=== PATIENT | female | born 1970 | race Caucasian/White ===

== ENCOUNTER 2020-04-02 07:48 | Day surgery (SDC) | payer OTHER, SELFPAY ==
[2020-03-29 14:30] LABS: Hematocrit 34.8 % (37-47); Hemoglobin 9.6 g/dL (12.0-15.0); Mean Corp Hgb Conc 27.6 g/dL (32-36); Mean Corpuscular Hgb 19.8 pg (27.0-32.0); Mean Corpuscular Volume 71.9 fL (81-99); Mean Platelet Vol. 9.9 fl (6.2-12.0); POSITIVE MORPHOLOGY YES; Platelet Count 366 K/mm3 (150-450); RBC Distribution Width CV 20.8 % (11.6-14.6); RBC Distribution Width SD 51.4 fl (35.1-43.9); Red Blood Count 4.84 M/mm3 (4.2-5.4); White Blood Count 7.7 K/mm3 (4.4-11.0)
[2020-03-29 14:37] LABS: International Normalized Ratio 1.1; Prothrombin Time (Protime)PT. 14.1 SECONDS (11.7-14.9)
[2020-03-29 14:38] LABS: Partial Thromboplast Time 32.7 Seconds (24.1-36.2)
[2020-03-29 15:05] LABS: EST Glomerular Filtration Rate 80 mL/min (>60); Est Glom Filt Rate - Afr Amer 97 mL/min (>60)
[2020-03-29 15:13] LABS: Scan Indicated on CBC? Y/N YES- FLAGS NOTED
--- NOTE | 2020-04-01 19:29 | PCM.HP.BLA ---
History and Physical Date of Admission: 04/02/20 Surgical History and Physical Yuki Meyer, a 49 year old female 2 0 0 0 2, presents for RAVH/BS on April 02, 2020 at 10:00. -- Heavy Bleeding and Painful Cramping; Multiple Uterine Fibroids -- Yuki presents as referral from [facility] for heavy bleeding with painful cramping. 49 y.o. G 2 P 2 with history of Irregular bleeding for the last several years and worsening in the last year. Reports she has also had bleeding inbetween her periods in the last year, that she never had before. Pt sts she used the Provera 08/13/19 [id number] and then started her menses. Pt did not take the Provera in August as she had started her menses before starting provera. Pt took Provera again 10/12/19 x 10days. She does not like how the Provera makes her feel and does not want to take it anymore. Heavy bleeding with periods which began several years. Yuki claims it started suddenly and has been present worsened in last year. It occurs intermittantly.; It occurs with menses. It is located in the vagina.; It is located in the lower abdomen. Yuki characterizes the quality cramping.; Yuki characterizes the quality heavy. Severity is moderate and not improving; Associated signs and symptoms are minimal relief with cyclic Provera. Additional comments are: intermittent Provera withdrawal did not help with problem; pelvic u/s shows 10-12 cm uterus with multiple uterine fibroids; EMBx benign. MEDICATIONS HISTORY: Patient is also takin. atorvastatin 20 mg tablet, One pill by mouth once a day 2. Lumigan 0.01 % eye drops, As Directed 3. timolol 0.5 %-brimon 0.15 %-dorzol 2 %-latanopro 0.005 %(PF) eye drops, As Directed 4. Zoloft 50 mg tablet, One pill by mouth once a day ALLERGIES: No Known Allergies Illnesses - Hypercholesterolemia, Seasonal Allergies, Depression,Glaucoma Accidents - None Hospitalizations - Childbirth Review of Systems: GENERAL - Denies fever, or chills SKIN - Denies skin changes EYES - Denies visual changes EARS - Denies difficulty hearing NOSE - Denies nasal congestion or bleeding MOUTH - Denies sore throat or difficulty swallowing NECK - Denies pain or swelling RESPIRATORY - Denies shortness of breath or wheezing CARDIOVASCULAR - Denies palpitations or chest pain GASTROINTESTINAL - Denies nausea, vomiting, diarrhea, constipation GENITOURINARY - Denies dysuria, frequency of urination, incontinence of urine MUSCULOSKELETAL - Denies joint or muscle pain NEUROLOGICAL - Denies localized numbness or weakness PSYCHIATRIC - Denies depression or anxiety ENDOCRINE - Denies heat or cold intolerance, weight loss or gain HEMATO-IMMUNOLOGIC - Denies excessive bleeding with cuts SOCIAL HISTORY: Alcohol Use - drinks occasionally Smoking - Never Diet - no special diet Lifestyle - moderate stress lifestyle and Exercise - active work Seat Belt Use - always 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 wisdom teeth removal PHYSICAL EXAM BP- 148/82 Sitting, Right arm, regular cuff Weight- 204.74565 lbs Height- 64.25 inch BMI:34.82 CONSTITUTIONAL - NAD, well nourished, and well developed LUNGS - CTA x2 without wheezes, crackles or rales CARDIAC - Regular rate and rhythm without rubs, murmurs, or gallops ABDOMEN - Without hepatosplenomegaly, distention, masses, rebound, or guarding; normal bowel sounds; no hernias EXTREMITIES - No edema or calf tenderness NEUROLOGICAL - Cranial nerves II-XII grossly intact PSYCHIATRIC - A and O to time, place, person, mood and affect External Genital Vagina - non-tender without lesions Urethra/Urethral Meatus - non-tender Bladder - non-tender Vagina - vaginal vazquez are pink and moist without loss of rugae and no evidence of atropy Cervix - without cervical motion tenderness and has normal size and features without evident lesions and cervix very high in vagina which would make LAVH technically difficult but RAVH/BS feasible Uterus - multiparous size 6 cm & wt 75-125 g Adnexa - clear without masses or tenderness ASSESSMENT/PLAN: 1. Excessive And Frequent Menstruation With Irregular Cycle and Uterine Leiomyoma Unspec Likely due to bleeding from fibroids as no response to intermittent provera therapy for 3 months. EMBx was benign. Recent TSH reportedly OK. Multiple family members had hysterectomy for fibroids. Discussed options for treatment including EM ablation (suboptimal option) versus proceeding with RAVH/BS. Pt desires hysterectomy. Discussed RBAs and all questions answered.
[2020-04-02] VITALS (9 sets, daily range): BP systolic 100–120; BP diastolic 50–63; PULSE 46–72; RESP 14–18; TEMP 36.6–37.1; O2SAT 95–99; BMI 33.5
--- NOTE | 2020-04-02 | HYST_PTH ---
PATIENT: BENITO GUAMAN [place] [facility] [place][id number] AGE/SX: 49/F ROOM: RE04/02/[address]: Dr. Russell Santillan MD : 1970 BED: DIS: 04/03/2020 SPEC #: [id number] RECD: 04/02/20 13:49 STATUS: ALE MONSIVAISYahir #: [id number] FRANCES: 04/02/20 00:[address]: Russell Santillan DEPT: SURGICAL PATHOLOGY RECD BY: Roland Cutler ENTERED: 04/03/20 08:01 SP TYPE: HYSTERECT OTHR DR: JANIE Coreas Tissues: Uterus, NOS Procedures: Surgery Specimen Level V HEADER OPERATION: Robotic assisted vaginal hysterectomy, bilateral salpingectomy PRE-OP DIAGNOSIS: Excessive and frequent menstruation with irregular cycle and uterine leiomyoma TISSUE SUBMITTED: Uterus, cervix and bilateral fallopian tubes MICROSCOPIC DIAGNOSIS Uterus, cervix and bilateral fallopian tubes, vaginal hysterectomy and bilateral salpingectomy: Cervix - chronic inflammation. Endometrium - proliferative endometrium. Myometrium - diffuse adenomyosis. Bilateral fallopian tubes - no pathologic diagnosis. SUDEEP:jennifer 04/04/20 MICROSCOPIC DESCRIPTION Slides are reviewed. GROSS DESCRIPTION Received in fixative is one container labeled with the patient's name and designated uterus, cervix and bilateral fallopian tubes. The specimen consists of a hysterectomy specimen consisting of uterus with cervix and attached bilateral fallopian tubes. The uterus with cervix weighs 236 gm and measures 12 x 8 x 6 cm. The serosal surface is johnston, glistening. The ectocervical mucosa is unremarkable. The external os is oval in contour. The endocervical canal measures 3.5 cm in length. The endocervical mucosa is johnston, glistening and unremarkable. The triangular endometrial cavity measures 6 cm in length and up to 3.5 cm in width. The endometrium is johnston, congested and glistening without any mass lesion and measures up to 0.1 cm in thickness. Sections of the uterine wall reveal multiple small cysts filled with chocolate-brown material and trabeculated cut surfaces suspicious for adenomyosis. The uterine wall measures up to 3 cm in thickness. The right fallopian tube measures 9 cm in length and up to 1 cm in diameter. The fimbrial end is identified and reveals congested surfaces. Sections do not reveal any mass lesion. The left fallopian tube is similar appearance to right and measures 8 cm in length and up to 1 cm in diameter. Registered Nurses sections are submitted in eight cassettes as follows: 1 - anterior cervix, 2 - posterior cervix, 3 & 4 - anterior uterine wall, 5 & 6 - posterior uterine wall, 7 - right fallopian tube, 8??left fallopian tube. / SUDEEP:jennifer 04/03/20 TC:5 CPT: 99637
[2020-04-02 08:18] LABS: Internal QC Validated? YES +Cl - CLEAR BKGD; Pregnancy, Urine Negative Negative
[2020-04-02] MEDS: Lactated Ringers 1,000 ML 100 ML IV ×2 (08:47→13:00)
[2020-04-02] MEDS: Lubricating Jelly 60 GM Tube 30 GM TOPICAL (10:47)
[2020-04-02] MEDS: Ropivacaine 0.5% 30 ML Vial (11:02)
--- NOTE | 2020-04-02 12:54 | PCM.OPRPT ---
Report of Operation Date of Procedure: 04/02/20 Pre-Operative Diagnosis: Menorrhagia, Dysmenorrhea, Uterine Fibroids Post-Operative Diagnosis: Menorrhagia, Dysmenorrhea, Uterine Fibroids Surgery/Procedure Performed:: Robotic Assisted Vaginal Hysterectomy and Bilateral Salpingectomy Description of Surgical Findings:: 12 cm uterus with normal-appearing fallopian tubes and ovaries. Bulbous cervix high in vagina. Inflammatory exudate on serosa of uterus suggestive of endometriosis. 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 Ultrasound shows uterine fibroids present. Conservative measures have not been helpful. The patient has been counseled regarding the risks, benefits and alternatives of this procedure including the possibility of bleeding, infection, and injury to surrounding structures such as bowel bladder and all questions were answered. She understands that if BSO is needed that she will need to be on HRT for an indefinite period of time. Procedure: Pt taken to the operating room where, after induction of general anesthesia, the patient was prepped and draped in the usual sterile fashion and placed on a non-slip Huggy-u-vac device. Trendelenburg test was satisfactory. Bladder was drained of urine with a Mckay catheter which was left in place. Anterior cervix grasped and cervix was dilated to about 3-4 mm. Uterus sounded to 12 cms. 0-Vicryl suture was placed at the 3:00 and 9:00 position of the cervix. A large Advincula Living Advisor Uterine Manipulator was then placed in the uterus and attention was turned to the laparoscopic portion of the procedure. Ropivocaine 0.5% was injected approximately 2-3 cm superior to the umbilicus and an 8 mm robotic camera port was introduced directly with intraperitoneal placement confirmed with CO2 insufflation. 8 mm robotic side ports were introduced under direct visualization approximately 11 cm lateral and 2 cm inferior to the umbilical port. A 5 mm left upper quadrant port was introduced and airseal insufflation with CO2 was started. The above findings were noted. Robot was docked without difficulty and attention turned to the robotic portion of the procedure. Approximately 30 cc of Ropivicaine was used. Bilateral infundibulopelvic ligaments/mesosalpinx were ligated with 35 garner bipolar coagulation to the level of the round ligament. The posterior aspect of the cervix was identified and then opened for about 1 cm using 25 watt monopolar cautery identifying the uterine manipulating device which had been placed vaginally. Bladder flap was opened and divided to the level of the round ligaments using monopolar cautery. Progressive bites were then ligated on each side of the cervix with 35 garner bipolar cautery to the uterine arteries. The anterior vaginal mucosa was entered and cervix circumscribed with monopolar cautery. Uterus and attached tubes were removed through the vagina. Vaginal cuff was closed first with 0-Vicryl Tracie stitches placed at each angle followed by closure of the mid-cuff with 0-Monocryl V-lock suture in two layers. Pelvis was copiously irrigated with saline and the right and left ureters were noted to peristalse. Robot was undocked and trocars were removed with as much gas as possible. Incisions were closed with 4-0 Monocryl subcuticular sutures and incisions covered with steri-strips. The patient tolerated the procedure well and was taken to the recovery room in satisfactory condition. Sponge, instruments and needle counts were all correct. There were no apparent complications of the surgery. Cefotan 2 gms IV was given prior to the procedure. Grafts/Implants Used: None - Complications None - Admit VTE Documentation VTE Present on Admission: Yes VTE Mechan Device Prophylaxis: SCD's VTE Pharm Prophylaxis ordered?: Yes
--- NOTE | 2020-04-02 13:00 | DCINST_ITS ---
Discharge Diet: No Restrictions Discharge Activity: Return to Normal Activity, May Not Drive - while taking narcotic pain medications., May Shower, May Take a Tub Bath May resume sexual activity in: 6-8 weeks Call your doctor if your incision/area has: Continuous Slow Oozing, Sudden Inc reased Bleeding, Increased Pain/ Swelling, Increased Redness, Foul Smelling Discharge Call your doctor if you observe: Fever of 101 or Higher, Inability to urinate, Inability to have a bowel movement, Using more than one pad per hour Allergies/Adverse Reactions: Allergies No Known Allergies Allergy (Verified 03/27/20 15:55) Medications to take at Discharge Acetaminophen [Tylenol Extra Strength] 500 - 1,000 mg PO Q6H PRN PRN 03/27/20 Atorvastatin Calcium [Lipitor] 20 mg PO QHS 03/27/20 Bimatoprost 0.01% [Lumigan 0.01%] 1 drp EACH EYE QHS 03/27/20 Ibuprofen [Ibu] 400 mg PO PRN PRN 03/27/20 Loratadine 10 mg PO DAILY 03/27/20 Sertraline HCl [Zoloft] 50 mg PO DAILY 03/27/20 Timolol 0.25% [Timoptic] 1 drp EACH EYE DAILY 03/27/20 Docusate Sodium [Colace] 100 mg PO BID PRN PRN #60 cap 04/02/20 Oxycodone [Oxyir] 5 mg PO Q6H PRN PRN 7 Days #20 tablet 04/02/20 The following prescriptions were given: Docusate Sodium [Colace] 100 mg PO BID PRN PRN #60 cap PRN Reason: Constipation Transmission Status: Pending to [id number] Oxycodone [Oxyir] 5 mg PO Q6H PRN PRN 7 Days #20 tablet PRN Reason: Pain Score 6-06/09 Transmission Status: Received by [id number] Primary Care Physician: Lalita Angeles PA [Primary Care Provider] - Test Results: Test results from this visit will be discussed in further detail at your follow- up appointment, if applicable. Please Follow Up With: Russell Santillan MD When: 2 to 3 weeks
[2020-04-02] MEDS: Dextrose 5%-Lactated Ringers 1,000 ML 150 ML IV ×2 (15:26→22:31)
[2020-04-02] MEDS: 0.9% Saline Lock 10 ML Syringe IV (17:04)
[2020-04-02] MEDS: Enoxaparin 30 MG/0.3 ML Syringe SC (17:04)
[2020-04-02] MEDS: Ketorolac 30 MG/ML Syringe IV ×2 (17:04→23:55)
[2020-04-02] MEDS: Acetaminophen 500 MG Tablet 1000 MG PO (19:12)
[2020-04-02] MEDS: Latanoprost 0.005% 1 Bottle 1 DRP EACH EYE (21:18)
[2020-04-02] MEDS: Atorvastatin Calcium 20 MG Tablet PO (21:18)
[2020-04-03 02:49] VITALS: BP 97/57; PULSE 51; RESP 16; TEMP 37; O2SAT 96
[2020-04-03 05:43] LABS: Hematocrit 27.9 % (37-47); Hemoglobin 7.9 g/dL (12.0-15.0); Mean Corp Hgb Conc 28.3 g/dL (32-36); Mean Corpuscular Hgb 20.4 pg (27.0-32.0); Mean Corpuscular Volume 71.9 fL (81-99); Mean Platelet Vol. 9.4 fl (6.2-12.0); POSITIVE MORPHOLOGY YES; Platelet Count 273 K/mm3 (150-450); RBC Distribution Width CV 20.1 % (11.6-14.6); RBC Distribution Width SD 52.1 fl (35.1-43.9); Red Blood Count 3.88 M/mm3 (4.2-5.4); White Blood Count 7.3 K/mm3 (4.4-11.0)
[2020-04-03] MEDS: Ketorolac 30 MG/ML Syringe IV ×2 (05:48→10:59)
[2020-04-03] MEDS: 0.9% Saline Lock 10 ML Syringe IV ×2 (05:49→10:59)
[2020-04-03 06:03] LABS: Creatinine, Serum 0.82 mg/dL (0.55-1.02); EST Glomerular Filtration Rate 79 mL/min (>60); Est Glom Filt Rate - Afr Amer 95 mL/min (>60); Estimated Creatinine Clearance 74.68 ml/min
[2020-04-03 06:07] LABS: Scan Indicated on CBC? Y/N YES- FLAGS NOTED
[2020-04-03 06:39] LABS: Differential Comment SCANNED
[2020-04-03 07:10] VITALS: O2SAT 96
--- NOTE | 2020-04-03 08:12 | PCM.PN.OB ---
Subjective: Patient without complaints. Tolerating diet well. Positive flatus. Minimal vaginal bleeding. Mckay catheter has been removed but she has not yet voided on her own. Objective: Wounds are clean, dry, intact. Good urine output. Hemoglobin and creatinine okay. - Physical Exam Vitals/I&O's: Vital Signs Temp Pulse Resp BP Pulse Ox 98.6 F 51 L 16 97/57 L 96 04/03/20 02:49 04/03/20 02:49 04/03/20 02:49 04/03/20 02:49 04/03/20 07:10 Oxygen Delivery Method Room Air Weight: 201 lb 15.095 oz Body Mass Index (BMI) 33.5 Intake and Output for Last 24 Hours 04/01/20 04/02/20 04/03/20 23:59 23:59 23:59 Intake Total 3593.33 / 3593.33 1400 / 1400 Output Total 1165 / 1165 650 / 650 Balance 2428.33 / 2428.33 750 / 750 Laboratory Results 04/02/20 08:10: Urine Test Negative 04/03/20 05:32: WBC 7.3, RBC 3.88 L, Hgb 7.9 L, Hct 27.9 L, MCV 71.9 L, MCH 20.4 L, MCHC 28.3 L, RDW Std Deviation 52.1 H, RDW Coeff of Temo 20.1 H, Plt Count 273, MPV 9.4, Differential Comment SCANNED 04/03/20 05:32: Creatinine 0.82, Estim Creat Clear Calc 74.68, Est GFR (MDRD) Af Amer 95, Est GFR (MDRD) Non-Af 79 Current Medications Acetaminophen (Tylenol) 1,000 mg PO Q8H PRN PRN PRN Reason: Pain Score 1-3/10 or Fever Last Admin: 04/02/20 19:12 Dose: 1,000 mg Documented by: Atorvastatin Calcium (Lipitor) 20 mg PO QHS KEREN Last Admin: 04/02/20 21:18 Dose: 20 mg Documented by: Docusate Sodium (Colace) 100 mg PO BID PRN PRN PRN Reason: CONSTIPATION Hydromorphone HCl (Dilaudid Inj) 0.5 mg IV Q3H PRN PRN PRN Reason: Pain Score 4-10/10 Sodium Chloride () 250 mls @ 15 mls/hr IV .[id number] PRN PRN Reason: Saline Flush Sodium Chloride () 250 mls @ 15 mls/hr IV .[id number] PRN PRN Reason: Additional IVPB Infusion Ketorolac Tromethamine (Toradol (Bkc)) 30 mg IV Q6H [facility] Stop: 04/07/20 18:01 Last Admin: 04/03/20 05:48 Dose: 30 mg Documented by: Latanoprost (Xalatan Opthalmic) 1 drop EACH EYE QHS [facility] Last Admin: 04/02/20 21:18 Dose: 1 drop Documented by: Loratadine (Claritin) 10 mg PO DAILY [facility] Ondansetron HCl (Zofran) 4 mg IV Q4H PRN PRN PRN Reason: NAUSEA Oxycodone HCl (Oxyir) 5 mg PO Q4H PRN PRN PRN Reason: Pain Score 4-10/10 Sertraline HCl (Zoloft) 50 mg PO DAILY [facility] Simethicone (Mylicon) 80 mg PO [facility] Last Admin: 04/02/20 21:18 Dose: 80 mg Documented by: Sodium Chloride () 10 - 40 ml IV UD PRN PRN Reason: SALINE FLUSH Last Admin: 04/03/20 05:49 Dose: 10 ml Documented by: Timolol Maleate (Timoptic) 1 drop EACH EYE DAILY [facility] Medical Necessity - Tobacco Use Smoking Status: Never smoker Tobacco Use: Non-smoker Assessment/Plan Doing well postoperative day #1 status post robotic assisted vaginal hysterectomy and bilateral salpingectomy. Will release to home with routine instructions.
[2020-04-03 10:07] VITALS: BP 107/44; PULSE 60; RESP 16; TEMP 36.7; O2SAT 97
[2020-04-03] MEDS: Loratadine 10 MG Tablet PO (10:09)
[2020-04-03] MEDS: Timolol 0.25% 5ML OPTH.BTL 1 DRP EACH EYE (10:09)
[2020-04-03] MEDS: Sertraline 50 MG Tablet PO (10:10)
== END 2020-04-03 11:20 | disposition home or self-care (01) ==
LOC: SDC 07:49 → AC 07:49 → MS3 10:51
PROVIDERS: Anesthesiology; PCP Physician Assistant; Referring Provider Obstetrics & Gynecology; Visit Provider Obstetrics & Gynecology
PROC: 0UT90ZZ Resection of Uterus, Open Approach (ICD-10-PCS; CPT 58552; principal; 2020-04-02 09:40)
DX: D25.9 Leiomyoma of uterus, unspecified (principal); N80.0 Endometriosis of uterus; N72 Inflammatory disease of cervix uteri; N94.6 Dysmenorrhea, unspecified; N92.0 Excessive and frequent menstruation with regular cycle; E78.00 Pure hypercholesterolemia, unspecified; K21.9 Gastro-esophageal reflux disease without esophagitis; F32.9 Major depressive disorder, single episode, unspecified; Z79.899 Other long term (current) drug therapy
CPT/HCPCS: 00944; 58552; S2900; 81025; 82565; 85027; 85610; 85730; 86850; 86900; 86901; 88307; 99251; J7120; A4216; G0463; J2405

== ENCOUNTER → 2022-07-28 | Outpatient (CLI) | payer OTHER, SELFPAY ==
[2022-07-28 07:59] LABS: ALB/GLOB Ratio 0.8 RATIO (0.9-2.4); AST(SGOT) 20 U/L (15-37); Alanine Aminotransfer ALT/SGPT 21 U/L (13-56); Albumin, Serum 3.3 g/dL (3.2-5.0); Alkaline Phosphatase 108 U/L (45-117); Anion Gap 4 (5-15); BUN 12 mg/dL (7-18); BUN/Creat Ratio 13.5 RATIO (10-20); Calcium,Total 9.1 mg/dL (8.5-10.1); Chloride 108 mmol/L (98-107); Cholesterol 196 mg/dL (200); Creatinine, Serum 0.89 mg/dL (0.55-1.02); EST Glomerular Filtration Rate 71 mL/min (>60); Est Glom Filt Rate - Afr Amer 86 mL/min (>60); Globulin 4.2 g/dL (2.2-4.2); Glucose 95 mg/dL (74-106); High Density Lipoprotein 39 mg/dL; Protein, Total 7.5 g/dL (6.4-8.2); Sodium Level 138 mmol/L (136-145); Triglycerides 177 mg/dL; Very Low Density Lipoprotein 35 mg/dL (5-40)
== END | disposition home or self-care (01) ==
LOC: LAB 07:15
PROVIDERS: PCP Physician Assistant; Referring Provider Physician Assistant; Visit Provider Physician Assistant
DX: E78.5 Hyperlipidemia, unspecified (principal)
CPT/HCPCS: 36415; 80053; 80061

== ENCOUNTER → 2022-07-30 | Outpatient (CLI) | payer OTHER, SELFPAY ==
--- NOTE | 2022-07-30 15:06 | BI_ITS ---
MAMMOGRAPHY - BILATERAL SCREENING REASON FOR EXAM: Female, 52 years old. Routine annual screening examination. PERTINENT HISTORY: Grandmother with breast cancer. Aunt with breast cancer. TECHNIQUE: Digital bilateral breast magno (3D mammographic acquisition) in the CC and MLO projections. 2-D mediolateral oblique (MLO) and craniocaudad (CC) views of both breasts were obtained. CAD: Full Field Digital Mammography with Computer Added Detection was performed. COMPARISON: Comparison is made with prior chest examination dated 07/18/2021. FINDINGS: Breast Composition: The breasts are heterogeneously dense, which may obscure small masses. There are no dominant masses or suspicious calcifications. Small benign-appearing bilateral axillary lymph nodes. No other significant abnormalities are identified. There has been no significant change since the prior study. BI/SCRN MAMM (CAD)W/MAGNO BILAT IMPRESSION: Stable bilateral screening mammogram. Yearly follow-up mammogram recommended. (A) ASSESSMENT CATEGORY: BIRADS Category 2: Benign. A letter regarding these results will be sent to the patient by the facility within 30 days. Approximately 10% of breast cancers are not detected by mammography. A normal mammogram should not delay biopsy of a clinically suspicious abnormality. [id number] Electronically Signed: Nguyễn Bateman MD at 9:40 EST ,
== END | disposition home or self-care (01) ==
LOC: OPBI 15:04
PROVIDERS: PCP Physician Assistant; Visit Provider Physician Assistant
DX: Z12.31 Encounter for screening mammogram for malignant neoplasm of breast (principal)
CPT/HCPCS: 77063; 77067

== ENCOUNTER → 2023-06-18 | Outpatient (CLI) | payer OTHER, SELFPAY ==
[2023-06-18 08:56] LABS: ALB/GLOB Ratio 0.8 RATIO (0.9-2.4); AST(SGOT) 15 U/L (15-37); Alanine Aminotransfer ALT/SGPT 20 U/L (13-56); Albumin, Serum 3.3 g/dL (3.2-5.0); Alkaline Phosphatase 107 U/L (45-117); Anion Gap 6 (5-15); BUN 13 mg/dL (7-18); BUN/Creat Ratio 14.6 RATIO (10-20); Calcium,Total 8.9 mg/dL (8.5-10.1); Chloride 111 mmol/L (98-107); Cholesterol 180 mg/dL (200); Creatinine, Serum 0.89 mg/dL (0.55-1.02); EST Glomerular Filtration Rate 70 mL/min (>60); Est Glom Filt Rate - Afr Amer 85 mL/min (>60); Globulin 4.1 g/dL (2.2-4.2); Glucose 101 mg/dL (74-106); High Density Lipoprotein 41 mg/dL; Potassium 4.2 mmol/L (3.5-5.1); Protein, Total 7.4 g/dL (6.4-8.2); Sodium Level 142 mmol/L (136-145); Triglycerides 89 mg/dL; Very Low Density Lipoprotein 18 mg/dL (5-40)
== END | disposition home or self-care (01) ==
PROVIDERS: PCP Physician Assistant; Referring Provider Physician Assistant; Visit Provider Physician Assistant
DX: E78.5 Hyperlipidemia, unspecified (principal)
CPT/HCPCS: 36415; 80053; 80061

== ENCOUNTER → 2023-07-31 | Outpatient (CLI) | payer OTHER, SELFPAY ==
--- NOTE | 2023-07-31 07:10 | BI_ITS ---
MAMMOGRAPHY - BILATERAL SCREENING REASON FOR EXAM: Female, 53 years old. Routine annual screening examination. PERTINENT HISTORY: Grandmother with breast cancer. Aunt with breast cancer. TECHNIQUE: Digital bilateral breast magno (3D mammographic acquisition) in the CC and MLO projections. 2-D mediolateral oblique (MLO) and craniocaudad (CC) views of both breasts were obtained. CAD: Full Field Digital Mammography with Computer Added Detection was performed. COMPARISON: Comparison is made with prior study of July 30, 2022. FINDINGS: Breast Composition: The breasts are heterogeneously dense, which may obscure small masses. There are no dominant masses or suspicious calcifications. Stable benign-appearing bilateral axillary lymph nodes. No other significant abnormalities are identified. There has been no significant change since the prior study. BI/SCRN MAMM (CAD)W/MAGNO BILAT IMPRESSION: Stable bilateral screening mammogram. Yearly follow-up mammogram recommended. (A) ASSESSMENT CATEGORY: BIRADS Category 2: Benign. A letter regarding these results will be sent to the patient by the facility within 30 days. Approximately 10% of breast cancers are not detected by mammography. A normal mammogram should not delay biopsy of a clinically suspicious abnormality. [id number] Electronically Signed: Nguyễn Bateman MD at 9:34 EST ,
== END | disposition home or self-care (01) ==
LOC: OPBI 07:08
PROVIDERS: PCP Physician Assistant; Referring Provider Physician Assistant; Visit Provider Physician Assistant
DX: Z12.31 Encounter for screening mammogram for malignant neoplasm of breast (principal)
CPT/HCPCS: 77063; 77067

== ENCOUNTER → 2024-02-23 | Outpatient (CLI) | payer OTHER, SELFPAY ==
--- NOTE | 2024-02-23 16:12 | RAD_ITS ---
EXAM: XR LEFT FOOT COMPLETE, 3 OR MORE VIEWS CLINICAL INDICATION: PAIN TECHNIQUE: Frontal, lateral and oblique views of the left foot. COMPARISON: No relevant prior studies available. FINDINGS: BONES/JOINTS: Unremarkable. No acute fracture. No subluxation. Normal alignment. Preservation of the joint space. No sclerotic or destructive changes observed. SOFT TISSUES: Unremarkable. No soft tissue swelling or gas. No radiopaque foreign body. RAD/Foot min 3 Views IMPRESSION: Negative left foot x-rays. Electronically Signed: Sathish Bosch MD at 6:42 EDT ,
== END | disposition home or self-care (01) ==
PROVIDERS: PCP Physician Assistant; Referring Provider Physician Assistant; Visit Provider Physician Assistant
DX: M79.672 Pain in left foot (principal); G89.29 Other chronic pain
CPT/HCPCS: 73630

== ENCOUNTER → 2024-05-18 | Outpatient (CLI) | payer OTHER, SELFPAY ==
--- NOTE | 2024-05-18 10:08 | RAD_ITS ---
EXAM: XR RIGHT FOOT COMPLETE, 3 OR MORE VIEWS CLINICAL INDICATION: RIGHT FOOT INJURY TECHNIQUE: Frontal, lateral and oblique views of the right foot. COMPARISON: Left foot radiographs of 02/23/2024. FINDINGS: BONES/JOINTS: Moderate sized plantar and posterior calcaneal spurs are present. Bony bunion formation noted along the medial aspect of the first metatarsal head, with mild overlying soft tissue swelling. Mild degenerative spurring noted about the first MTP joint. The medial sesamoid bone plantar to the first metatarsal head is bipartite, a normal variant. No acute fracture or dislocation. No sclerotic or destructive changes observed. SOFT TISSUES: See above. No opaque foreign body. RAD/Foot min 3 Views IMPRESSION: No acute fracture or dislocation identified. Electronically Signed: Chinmay Eduardo MD at 22:38 EDT ,
== END | disposition home or self-care (01) ==
LOC: RAD 09:58
PROVIDERS: PCP Physician Assistant; Referring Provider Family Medicine; Visit Provider Family Medicine
DX: S99.929A Unspecified injury of unspecified foot, initial encounter (principal)
CPT/HCPCS: 73630

== ENCOUNTER → 2024-07-04 | Outpatient (CLI) | payer OTHER, SELFPAY ==
[2024-07-04 07:48] LABS: Absolute Lymphocyte Count 1.28 X10^3/uL (0.83-4.51); Absolute Neutrophil Count 3.3 X10^3/uL (2.0-7.7); Basophil# 0.06 X10^3/uL; Eosinophil# 0.64 X10^3/uL; Eosinophils% 10.9 % (0-5); Hematocrit 42.2 % (37-47); Hemoglobin 13.4 g/dL (12.0-15.0); Lymphocyte # 1.28 X10^3/ul (0.83-4.51); Lymphocyte % 21.8 % (19-41); Mean Corp Hgb Conc 31.8 g/dL (32-36); Mean Corpuscular Hgb 27.7 pg (27.0-32.0); Mean Corpuscular Volume 87.2 fL (81-99); Monocyte# 0.58 X10^3/uL; Monocyte% 9.9 % (0-10); NRBC Flagged by Analyzer 0 % (0-5); Neutrophil # 3.29 X10^3/uL (2.7-7.7); Neutrophil % 56.2 % (47-70); Platelet Count 284 K/mm3 (150-450); RBC Distribution Width CV 13.1 % (11.6-14.6); RBC Distribution Width SD 42.1 fl (35.1-43.9); Red Blood Count 4.84 M/mm3 (4.2-5.4); White Blood Count 5.9 K/mm3 (4.4-11.0)
[2024-07-04 08:29] LABS: ALB/GLOB Ratio 0.9 RATIO (0.9-2.4); AST(SGOT) 23 U/L (15-37); Alanine Aminotransfer ALT/SGPT 24 U/L (13-56); Albumin, Serum 3.5 g/dL (3.2-5.0); Alkaline Phosphatase 116 U/L (45-117); Anion Gap 6 (5-15); BUN 16 mg/dL (7-18); BUN/Creat Ratio 17.5 RATIO (10-20); Chloride 108 mmol/L (98-107); Cholesterol 183 mg/dL (200); Creatinine, Serum 0.92 mg/dL (0.55-1.02); EST Glomerular Filtration Rate 68 mL/min (>60); Est Glom Filt Rate - Afr Amer 82 mL/min (>60); Globulin 3.8 g/dL (2.2-4.2); Glucose 86 mg/dL (74-106); High Density Lipoprotein 46 mg/dL; Potassium 4.1 mmol/L (3.5-5.1); Protein, Total 7.3 g/dL (6.4-8.2); Sodium Level 140 mmol/L (136-145); Triglycerides 113 mg/dL; Very Low Density Lipoprotein 23 mg/dL (5-40)
== END | disposition home or self-care (01) ==
LOC: LAB 06:39
PROVIDERS: PCP Physician Assistant; Referring Provider Physician Assistant; Visit Provider Physician Assistant
DX: Z13.0 Encounter for screening for diseases of the blood and blood-forming organs and certain disorders involving the immune mechanism (principal); Z13.29 Encounter for screening for other suspected endocrine disorder; E78.5 Hyperlipidemia, unspecified
CPT/HCPCS: 36415; 80053; 80061; 84443; 85025

== ENCOUNTER → 2024-08-04 | Outpatient (CLI) | payer OTHER, SELFPAY ==
--- NOTE | 2024-08-04 15:40 | BI_ITS ---
MAMMOGRAPHY - BILATERAL SCREENING REASON FOR EXAM: Female, 54 years old. Routine annual screening examination. PERTINENT HISTORY: Grandmother with breast cancer. Aunt with breast cancer. TECHNIQUE: Digital bilateral breast magno (3D mammographic acquisition) in the CC and MLO projections. 2-D mediolateral oblique (MLO) and craniocaudad (CC) views of both breasts were obtained. CAD: Full Field Digital Mammography with Computer Added Detection was performed. COMPARISON: Comparison is made with prior study July 31, 2023 and July 30, 2022. FINDINGS: Breast Composition: The breasts are heterogeneously dense, which may obscure small masses. There are no dominant masses or suspicious calcifications. Stable bilateral fat containing axillary lymph nodes. No other significant abnormalities are identified. There has been no significant change since the prior study. BI/SCRN MAMM (CAD)W/MAGNO BILAT IMPRESSION: Stable bilateral screening mammogram. Yearly follow-up mammogram recommended. (A) ASSESSMENT CATEGORY: BIRADS Category 2: Benign. A letter regarding these results will be sent to the patient by the facility within 30 days. Approximately 10% of breast cancers are not detected by mammography. A normal mammogram should not delay biopsy of a clinically suspicious abnormality. [id number] Electronically Signed: Nguyễn Bateman MD at 8:29 EST ,
== END | disposition home or self-care (01) ==
LOC: OPBI 15:38
PROVIDERS: PCP Physician Assistant; Referring Provider Physician Assistant; Visit Provider Physician Assistant
DX: Z12.31 Encounter for screening mammogram for malignant neoplasm of breast (principal)
CPT/HCPCS: 77063; 77067

== ENCOUNTER → 2025-06-27 | Outpatient (CLI) | payer OTHER, SELFPAY ==
--- OUTSIDE RECORDS SUMMARY | 2025-06-27 07:25 | XMS RPT_ITS | CCD ---
Author Organization [facility] ion 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 Name Role Phone ANGELES, LAURO J Admitting Unavailable ANGELES, LAURO J Primary Care Unavailable ANGELES, LAURO J Consulting Unavailable ANGELES, LAURO J Attending Unavailable PROVIDER, UNKNOWN Consulting Unavailable ANGELES, LAURO J Admitting Unavailable ANGELES, LAURO J Primary Care Unavailable ANGELES, LAURO J Consulting Unavailable ANGELES, LAURO J Attending Unavailable PROVIDER, UNKNOWN Consulting Unavailable ANGELES, LAURO J Attending Unavailable ANGELES, LAURO J Admitting Unavailable ANGELES, LAURO J Primary Care Unavailable ANGELES, LAURO J Consulting Unavailable PROVIDER, UNKNOWN Consulting Unavailable Angeles DAVID, Lauro J Unavailable Rhiannon Angeles PA-Cissa Pauline Unavailable Jacque TAMAYO, Dr. Russell Krishnan Unavailable Kamlesh Cruz MD Unavailable Roseline Wayne MA Unavailable Unavailable Jay SEVILLANChula Unavailable Unavailable King KENYETTA-C, Leo Edgar Unavailable Kae CONLEY, Chelo Dominguez Unavailable Unavaila ble Mutersbaugh INFORMATION SYSTEMS AUDIT MANAGER, Lynsey K Unavailable Unavai lable Jessica INFORMATION SYSTEMS AUDIT MANAGER, Mireille Krishnan Unavailable Unavailab demetrio Lieberman LPN, Mickie Unavailable Unavailab Deb Anaya MA Unavailable Unavailable Vess INFORMATION SYSTEMS AUDIT MANAGER, Ayaz Asencio Unavailable Unavailable Colin INFORMATION SYSTEMS AUDIT MANAGER, Navya Unavailable Unavailabl e Unavailable Unavailable Pee SEVILLAN, Deb Unavailable Unavailable Mini SHORT, Dr. Chula Kohler Unavailable Evangelina INFORMATION SYSTEMS AUDIT MANAGER, Miri Unavailable Lauro Parra Attending Unavailable Lauro Parra Primary Care Unavailable Lauro Parra Referring Unavailable Lauro Parra Attending Unavailable Lauro Parra Primary Care Unavailable Lauro Parra Referring Unavailable Kamlesh Cruz Referring Unavailable Kamlesh Cruz Attending Unavailable Karthik LIMA, Lauro Primary Care Unavailable Karthik LIMA, Lauro Referring Unavailable Lauro Parra Attending Unavailable Karthik LIMA, Lauro Primary Care Unavailable Medications Current Medications Medication Drug Class(es) Dates Sig (Normalized) Sig (Original) acetaminophen 500 mg oral tablet (3 sources) Start: 03-27-2020 take 500-1000 mg by mouth every six hours as needed Acetaminophen Active 500 - 1000 MG PO EVERY 6 HOURS NEEDED March 27, 2020 12:00am atorvastatin 20 mg oral tablet (20 sources) HMG-CoA Reductase Inhibitor Start: 09-01-2023 atorvastatin 20 mg tablet ; 1 Tablet daily for 0 days Quantity: 90 {Tablet} Refills: 3 Ordered: 07-Jul-2024 DAVID Angeles Start: 07-Jul-2024 Start: 03-27-2020 take 1 tablet by casey once daily Atorvastatin Calcium 20 MG Oral Tablet ; 1 Tablet daily for 0 days Quantity: 90 {Tablet} Refills: 3 Ordered: 04-Aug-2022 DAVID Angeles Start: 04-Aug-2022 bimatoprost 0.1 mg/ml ophthalmic solution (20 sources) Prostaglandin Analog Start: 03-27-[address] Active 1 DRP EACH EYE AT BEDTIME March 27, 2020 12:00am take 1 drop(s) into the eye(s) at bedtime LUMIGAN, 0.01% (Ophthalmic Solution) ; 1 drop each eye bedtime (0.01 %) Status: Inactive Lumigan ; 1 drop both eyes calcium carbonate 1250 mg / cholecalciferol 200 unt oral tablet (20 sources) Vitamin D Calcium 500 + D 500 mg-5 mcg (200 unit) tablet ; daily (500 mg-5 mcg (200 unit)) docusate sodium 100 mg oral capsule (3 sources) Start: 04-02-20 take 100 mg by mouth twice daily as needed Docusate Sodium Active 100 MG PO TWICE DAILY NEEDED 60 April 02, 2020 12:00am ibuprofen 400 mg oral tablet (3 sources) Nonsteroidal Anti-inflammatory Drug Start: 07-28-20 20 Ibuprofen Active 400 MG PO NEEDED March 27, 2020 12:00am loratadine 10 mg oral capsule (20 sources) Start: 03-27-20 20 take 10 mg by mouth once daily Loratadine Active 10 MG PO DAILY March 27, 2020 12:00am take 1 tablet by mouth once bakari y Loratadine 10 MG Oral Tablet ; 1 daily (10 MG) Status: Inactive Loratadine Lutein (16 sources) lutein magnesium oxide 420 mg oral tablet (16 sources) magnesium oxide 420 mg tablet ; (420 mg) sertraline 100 mg oral tablet (20 sources) Serotonin Reuptake Inhibitor Start: 02-15-2025 Zoloft 100 mg tablet ; 1 Tablet daily for 0 days Quantity: 90 {Tablet} Refills: 0 Ordered: 15-Feb-2025 DAVID Angeles Start: 15-Feb-2025 Comments: Dose increase 07/07/2024 Start: 07-07-2024 Zoloft 100 mg tablet ; 1 Tablet daily for 0 days Quantity: 90 {Tablet} Refills: 1 Ordered: 07-Jul-2024 DAVID Angeles Start: 07-Jul-2024 Comments: Dose increase 07/07/2024 Start: 06-07-2024 Zoloft 50 mg t ablet ; 1 Tablet daily for 0 days Quantity: 90 {Tablet} Refills: 1 Ordered: 07-Jun-2024 DAVID Angeles Start: 07-Jun-2024 Start: 12-10-2023 Zoloft 50 mg t ablet ; 1 Tablet daily for 0 days Quantity: 90 {Tablet} Refills: 1 Ordered: 10-Dec-2023 DAVID Angeles Start: 10-Dec-2023 Start: 09-17-2023 Zoloft 50 mg t ablet ; 1 Tablet daily for 0 days Quantity: 90 {Tablet} Refills: 0 Ordered: 17-Sep-2023 DAVID Angeles Start: 17-Sep-2023 Start: 03-27-2020 Zoloft 50 mg t ablet ; 1 Tablet daily for 0 days Quantity: 90 {Tablet} Refills: 0 Ordered: 12-Jun-2023 DAVID Angeles Start: 12-Jun-2023 Comment on above: Dose increase 024 timolol 2.5 mg/ml ophthalmic solution (20 sources) beta-Adrenergic Laurie Start: 03-27-2020 Timolol Maleate Active 1 DRP EACH EYE DAILY March 27, 2020 12:00am Timolol Hemihydr ate ; qd ubidecarenone 30 mg oral cap nicole (20 sources) Co Q-10 30 mg ca psule ; daily (30 mg) Vitamin B Complex Oral Table t (20 sources) take 1 tablet by casey th once daily Vitamin B Complex Oral Tablet ; 1 daily Completed/Discontinued Medications Medication Drug Class(es) Dates Sig (Normalized) Sig (Original) amoxicillin 875 mg / clavulanate 125 mg oral tablet (20 sources) Penicillin-class Antibacterial Start: 03-30-2019 End: 04-09-2019 take 1 tablet by mouth twice daily at mealtime Amoxicillin-Pot Clavulanate 875-125 MG Oral Tablet ; 1 (one) Tablet BID for 10 days Quantity: 20 {Tablet} Refills: 0 Ordered: 30-Mar-2019 DAVID Angeles Start: 30-Mar-2019 End: 09-Apr-2019 Status: Inactive Comments: Take with food Comment on above: Take with food azithromycin 500 mg oral tablet (20 sources) Macrolide Antimicrobial Start: 09-23-2021 End: 09-26-2021 take 1 tablet by mouth once daily Azithromycin 500 MG Oral Tablet ; 1 (one) Tablet qd for 3 days Quantity: 3 {Tablet} Refills: 0 Ordered: 23-Sep-2021 MD Kamlesh Cruz Start: 23-Sep-2021 End: 26-Sep-2021 Status: Inactive Start: 07-17-2021 End: 09-23-2021 Zithromax Z-Jose Enrique 250 MG Oral Tablet ; 2 (two) Tablet today and then 1 tablet daily x 4 days for 0 days Quantity: 1 {Packet} Refills: 0 Ordered: 23-Sep-2021 MD Kamlesh Cruz Start: 17-Jul-2021 End: 23-Sep-2021 Status: Inactive erythromycin 0.02 mg/mg topical gel (20 sources) Macrolide, Macrolide Antimicrobial Start: 01-11-2015 End: 07-12-2015 ERYTHROMYCIN, 2% (External Gel) ; 1 (one) application to affected areas BID for 0 days Quantity: 60 {Gram} Refills: 1 Ordered: 12-Jul-2015 GUSTABO Ellis Lynsey Valdez Start: 11-Jan-2015 End: 12-Jul-2015 Status: Inactive Comments: 4-8 weeks Erygel 2 % Exter nal Gel ; as needed (2 %) Status: Inactive Comments: Medication taken as needed. Comment on above: Medication taken as needed. 4-8 weeks ferrous sulfate (20 sources) Iron Status: Inactive metroNIDAZOLE 0.01 mg/mg topical gel (20 sources) Nitroimidazole Antimicrobial Start: 07-02-20 17 End: 07-07-20 18 Metrogel 1 % External Gel ; 1 (one) application to affected areas BID for 0 days Quantity: 60 {Gram} Refills: 0 Ordered: 07-Jul-2018 GUSTABO Shawfer Start: 02-Jul-2017 End: 07-Jul-2018 Status: Inactive Comments: Apply a thin layer after washing face. Comment on above: Apply a thin layer a fter washing face. nitrofurantoin, macrocrystals 25 mg / nitrofurantoin, monohydrate 75 mg oral capsule (20 sources) Nitrofuran Antibacterial Start: 11-17-19 End: 11-22-19 take 1 capsule by mouth twice daily Macrobid 100 MG Oral Capsule ; 1 (one) Capsule BID for 5 days Quantity: 10 {Capsule} Refills: 0 Ordered: 16-Nov-2020 DAVID Angeles Start: 16-Nov-2020 End: 21-Nov-2020 Status: Inactive oxyCODONE hydrochloride 5 mg oral tablet (3 sources) Opioid Agonist Start: 04-02-20 End: 04-09-20 take 5 mg by mouth every six hours as needed Oxycodone Discontinued 5 MG PO EVERY 6 HOURS NEEDED 19 03April 02, 2020 April 09, 2020 12:02am predniSONE 20 mg oral tablet (20 sources) Start: 11-19-19 End: 08-04-20 take 3 tablets by mouth once daily, then take 2 tablets by mouth once daily, then take 1 tablet by mouth once daily, then take 0.5 tablet by mouth once daily predniSONE 20 MG Oral Tablet ; 1 (one) Tablet as directed for 0 days Quantity: 20 {Tablet} Refills: 0 Ordered: 04-Aug-2022 JEREMY Cee Start: 18-Nov-2021 End: 04-Aug-2022 Status: Inactive Comments: Take 3tabs qd for 3 days thenTake 2tabs qd for 3 days thenTake 1tab qd for 3 days thenTake 1/2tab qd for 4 days. Comment on above: Take 3tabs qd for 3 days thenTake 2tabs qd for 3 days thenTake 1tab qd for 3 days thenTake 1/2tab qd for 4 days. Problems Active Problems Problem Classification Problem Date Documented Date Episodic/Chronic Chronic obstructive pulmonary disease and bronchiectasis (20 sources) Bronchitis; Translations: [Bronchitis, not specified as acute or chronic] 06-24-2023 Episodic Disorders of lipid metabolism (20 sources) Hyperlipidemia; Translations: [Hyperlipidemia, unspecified] 06-24-2023 Chronic Esophageal disorders (20 sources) Gastroesophageal reflux disease; Translations: [Gastro-esophageal reflux disease without esophagitis] 06-24-2023 Chronic Glaucoma (20 sources) Glaucoma 06-24-2023 Chronic Immunizations and screening for infectious disease (20 sources) Needs influenza immunization; Translations: [Encounter for immunization] 07-08-2019 Episodic Malaise and fatigue (20 sources) Fatigue; Translations: [Other fatigue] 07-07-2019 Episodic Menstrual disorders (20 sources) Menorrhagia; Translations: [Excessive and frequent menstruation with regular cycle] 07-19-2020 Chronic Mood disorders (20 sources) Depressive disorder; Translations: [Depressive disorder, not elsewhere classified] 06-24-2023 Chronic Other connective tissue disease (20 sources) Chronic pain of left foot; Translations: [Pain in left foot] 02-19-2024 Episodic Other connective tissue disease (1 source) Foot pain 05-17-2024 Episodic Other hematologic conditions (20 sources) History of anemia; Translations: [Personal history of diseases of the blood and blood-forming organs and certain disorders involving the immune mechanism] 06-24-2023 Episodic Other inflammatory condition of skin (20 sources) Perioral dermatitis; Translations: [Perioral dermatitis] 07-07-2019 Chronic Other injuries and conditions due to external causes (16 sources) Injury of foot; Translations: [Unspecified injury of unspecified foot, initial encounter] 05-17-2024 Episodic Other lower respiratory disease (20 sources) Lower respiratory tract infection; Translations: [Unspecified acute lower respiratory infection] 08-04-2022 Episodic Other non-traumatic joint disorders (20 sources) Pain in right shoulder; Translations: [Pain in joint, shoulder region] 06-24-2023 Episodic Other nutritional; endocrine; and metabolic disorders (20 sources) Body mass index 30+ - obesity; Translations: [Obesity, unspecified] 06-24-2023 Chronic Other screening for suspected conditions (not mental disorders or infectious disease) (20 sources) Patient encounter status; Translations: [Encounter for other screening for malignant neoplasm of breast] Onset: 07-24-2024 06-24-2023 Episodic Other upper respiratory infections (20 sources) Sinusitis; Translations: [Chronic sinusitis, unspecified] 07-07-2019 Chronic Residual codes; unclassified (20 sources) Influenza vaccination declined; Translations: [Immunization not carried out because of patient refusal] 07-07-2019 Episodic Unclassified (20 sources) Number of Children 06-24-2023 Comment on above: 2. Unclassified (20 sources) Number of Pregnancies 06-24-2023 Comment on above: 2. Unclassified (20 sources) Vaginal deliveries 06-24-2023 Comment on above: 2. Unclassified (20 sources) Follow up for multiple chronic conditions - The patient is here for follow-up of depression and hyperlipidemia. The patient always takes the prescribed medications. No side effects noted. The patient has low activity level and no regular exercise program. The patient states that there is no recent angina or dyspnea and there are no vision changes or weakness. Note for Multiple chronic conditions follow-up: No complaints.Mammo is UTD. 08-04-2022 Unclassified (20 sources) Follow up for multiple chronic conditions - The patient is here for follow-up of depression, GERD (has been giving her issues- more in evening; takes pepcid once daily and tums prn; eating late and drinking pop again), hyperlipidemia and obesity. The patient always takes the prescribed medications. No side effects noted. The patient engages in regular exercise program 1-3 times per week. The patient's out of office blood pressure checks occur rarely and dietary compliance is fairly good usually adhering to recommendations. The patient states that breathing effort is stable, there is no recent angina or dyspnea, there are no vision changes or weakness (last eye appointment 12/2018.), pain is generally stable (none), mood is unchanged, sleep patterns have improved and they do not have headaches. Note for Multiple chronic conditions follow-up: Last office visit 03/30/2019. 07-08-2019 Unclassified (20 sources) [ADDITIONAL REASON] Well adult female - The patient feels well with no complaints, has good energy level and is sleeping well. The first day of the last menstrual period was : (period now- irregular; heavy with cramping x 1 year). The current method of contraception is: partner had vasectomy. The patient has a balanced diet and takes supplemental vitamins. The patient exercises weekly. The patient sleeps 5 hours per night. 07-08-2019 Unclassified (20 sources) Well adult female - The patient feels well with no complaints (heavy periods), has decreased energy level (depends on day) and is sleeping poorly. The first day of the last menstrual period was : (06/11-06/16/2018- not regular-sometimes she can miss a month). The patient has a balanced diet and takes supplemental vitamins. The patient does not exercise. The patient sleeps 4 (straight.) hours per night. Note for Well adult female: Patient states that she will come back for the female check-states started her period. 07-07-2018 Unclassified (20 sources) [ADDITIONAL REASON] Follow-up for multiple chronic conditions (RAH) - The patient is here for follow-up of hyperlipidemia, obesity, depression (better- there is good days and bad days.), GERD (better) and other condition(s) (glaucoma.). The patient always takes the prescribed medications. Side effects noted (leg cramps.). The patient has an active lifestyle but no regular exercise program. The patient's out of office blood pressure checks occur rarely and dietary compliance is fairly good usually adhering to recommendations. The patient has been seen by an medical billing and coding specialist in the past 12 months (05/2018), but has not experienced changes in vision since the last visit. The patient states that breathing effort is stable (with activities.), there is no recent angina or dyspnea, there are no vision changes or weakness, in general mood has improved (depends on the day.), they are still having trouble sleeping and they do not have headaches. 07-07-2018 Unclassified (20 sources) Well adult female - The patient feels well with minor complaints (reports that she had cold symptoms for 1 week, continues to have a reoccuring cough that is worse in the mornings. ), has good energy level and is sleeping well (for the past month has had trouble to fall asleep). The first day of the last menstrual period was : (approx 06/06/2016). The patient has a balanced diet (tries to get a balanced diet but does drink soda and eat sweets) and takes no supplemental vitamins & iron. The patient exercises none (is active at work). The patient sleeps 5 hours per night. Note for Well adult female: No complaints or concerns needing discussed today. 06-24-2016 Unclassified (20 sources) Follow up for chronic condition - The patient is here for follow-up of hyperlipidemia, depression (Stable on current med. Father just recently.), GERD (Stable without daily med. Has H2 laurie she can take if needed.) and other condition(s) (glaucoma - managed by Dr. Chin). The patient always takes the prescribed medications. No side effects noted. The patient engages in regular exercise program 1-3 times per week. The patient's out of office blood pressure checks occur rarely and dietary compliance is fairly good usually adhering to recommendations. The patient states that breathing effort is stable, there is no recent angina or dyspnea, there are no vision changes or weakness, mood is unchanged and they do not have headaches. Note for Chronic condition follow-up: Pt is new to us - previously a patient of Dr. Dwyer. Last labs were done May 2014 - usually has them done yearly for work screening. Last tetanus was >10 years ago. 01-12-2015 Unclassified (5 sources) Well adult female - The patient feels well with no complaints, has good energy level and is sleeping well. The first day of the last menstrual period was : (period now- irregular; heavy with cramping x 1 year). The current method of contraception is: partner had vasectomy. The patient has a balanced diet and takes supplemental vitamins. The patient exercises weekly. The patient sleeps 5 hours per night. 07-08-2019 Unclassified (5 sources) [ADDITIONAL REASON] Follow up for multiple chronic conditions - The patient is here for follow-up of depression, GERD (has been giving her issues- more in evening; takes pepcid once daily and tums prn; eating late and drinking pop again), hyperlipidemia and obesity. The patient always takes the prescribed medications. No side effects noted. The patient engages in regular exercise program 1-3 times per week. The patient's out of office blood pressure checks occur rarely and dietary compliance is fairly good usually adhering to recommendations. The patient states that breathing effort is stable, there is no recent angina or dyspnea, there are no vision changes or weakness (last eye appointment 12/2018.), pain is generally stable (none), mood is unchanged, sleep patterns have improved and they do not have headaches. Note for Multiple chronic conditions follow-up: Last office visit 03/30/2019. 07-08-2019 Unclassified (4 sources) Follow-up for multiple chronic conditions (RAH) - The patient is here for follow-up of hyperlipidemia, obesity, depression (better- there is good days and bad days.), GERD (better) and other condition(s) (glaucoma.). The patient always takes the prescribed medications. Side effects noted (leg cramps.). The patient has an active lifestyle but no regular exercise program. The patient's out of office blood pressure checks occur rarely and dietary compliance is fairly good usually adhering to recommendations. The patient has been seen by an medical billing and coding specialist in the past 12 months (05/2018), but has not experienced changes in vision since the last visit. The patient states that breathing effort is stable (with activities.), there is no recent angina or dyspnea, there are no vision changes or weakness, in general mood has improved (depends on the day.), they are still having trouble sleeping and they do not have headaches. 07-07-2018 Unclassified (4 sources) [ADDITIONAL REASON] Well adult female - The patient feels well with no complaints (heavy periods), has decreased energy level (depends on day) and is sleeping poorly. The first day of the last menstrual period was : (06/11-06/16/2018- not regular-sometimes she can miss a month). The patient has a balanced diet and takes supplemental vitamins. The patient does not exercise. The patient sleeps 4 (straight.) hours per night. Note for Well adult female: Patient states that she will come back for the female check-states started her period. 07-07-2018 Unclassified (16 sources) Foot pain - The pain is in the left foot and is located in the plantar foot and heel. The onset of the foot pain was gradual following no specific incident and has been occurring in a persistent pattern for 3 weeks (patient states this has been going on for years, but much worse in the last 3 weeks). The course has been recurrent. The pain is mild to moderate. The pain is characterized as a dull aching (also will get sharp stabbing pains when walking). The pain is aggravated by physical activity and any movement. The pain has been relieved by acetaminophen, NSAIDs and stretching (sometimes this helps). The symptoms have been associated with pain in calf (sometimes it radiates up the calf just a little bit, its feels like its pulling) and painful ROM. Note for Foot pain: Patient was doing exercises for her feet - just a few and not consistently. 02-19-2024 Urinary tract infections (20 sources) Urinary tract infectious disease; Translations: [Urinary tract infection, site not specified] 11-16-2020 Episodic Past or Other Problems Problem Classification Problem Date Documented Date Episodic/Chronic Other connective tissue disease (1 source) Pain in left foot; Translations: [Pain in left foot] Onset: 03-07-2024 Episodic Other injuries and conditions due to external causes (1 source) Unspecified injury of unspecified foot, initial encounter; Translations: [Unspecified injury of unspecified foot, initial encounter] Onset: 05-18-2024 Episodic Unclassified (20 sources) Well adult female - The patient feels well with minor complaints (is having some sinus issues - funny smell), has good energy level and is sleeping well. The patient has a balanced diet and takes supplemental vitamins. The patient does not exercise. The patient sleeps 6 hours per night. 06-24-2023 Unclassified (20 sources) Shoulder pain - The onset of the shoulder pain has been gradual and has been occurring in a persistent pattern for 2 months. The course has been worsening. The pain is characterized as a moderate dull aching. The pain is described as being located in the right shoulder and is aggravated by any movement. Relieving factors include medication (ibuprofen/tylenol prn). The symptoms have been associated with painful ROM and decreased ROM. There has been no previous diagnostic testing. There have been no previous evaluations. Note for Shoulder pain: No history of injury.Hard to lift arm up. Initially noticed pain when she was reaching forward. 03-21-2022 Unclassified (20 sources) Cold Symptoms - Note for Upper respiratory infection: Tested positive 09-16-21. Hasd sx about 3 days prior to test. Dry cough, shortness of breath and fatigue continues. 09-23-2021 Unclassified (20 sources) Well adult female - The patient feels well with minor complaints (has had a slight cold for 2 weeks, is feeling better but still coughing), has good energy level and is sleeping well. The patient has a balanced diet and takes no supplemental vitamins & iron. The patient does not exercise. The patient sleeps 7 hours per night. Note for Well adult female: Pt has an appt for mammo tomorrow.Has had cold symptoms x 2 weeks - has had numerous negative covid tests during this time. Dry cough, sore throat, PND, some SOB/chest tightness; feels improved today. 07-17-2021 Unclassified (20 sources) UTI - Symptoms include dysuria, urinary frequency and hematuria. Onset was gradual 3 day(s) ago. There is no known event that preceded symptom onset. The symptoms occur constantly. The patient describes this as moderate in severity and worsening. Associated symptoms include fever (100; last night and short lived) and urinary hesitancy, but do not include nausea. Note for UTI: No back pain. 11-16-2020 Unclassified (20 sources) Well adult female - The patient feels well with no complaints, has good energy level and is sleeping well. The patient has a balanced diet and takes supplemental vitamins (iron). The patient does not exercise. The patient sleeps 6 hours per night. Note for Well adult female: Doing well - no concerns today. 07-19-2020 Unclassified (20 sources) Cold Symptoms - Symptoms include nasal congestion (all symptoms on right side of face), ear fullness, sore throat, dry cough, headache and facial pain, but do not include runny nose, productive cough, wheezing, fever, chills or general malaise. The onset was gradual 5 day(s) ago. The symptoms occur constantly. The patient describes this as moderate in severity and unchanged. Current treatment includes an oral decongestant and saline nasal spray/drops. The patient has been exposed to an individual with an upper respiratory infection (at work). Medical history includes seasonal allergies, but patient denies history of recurrent sinusitis, recurrent strep pharyngitis, asthma, tonsillectomy or recurrent ear infections. Note for Upper respiratory infection: Saw dentist after symptoms first started - was told it wasn't her teeth but that her sinuses looked inflamed. 03-30-2019 Unclassified (20 sources) Well adult female - The patient feels well with minor complaints (rash on her face (has been there for yrs and nothing really helps - was given erygel which helped at first but then didn't; has been using OTC recently - occasional itching, burning, pustules). She said before this last period it was 43 days since she had a period.), has good energy level and is sleeping poorly (can't stay asleep). The first day of the last menstrual period was : (06/18-06/23/17). The patient has a balanced diet and takes supplemental vitamins. The patient does not exercise. The patient sleeps 5 hours per night. 07-02-2017 Unclassified (20 sources) Well Adult, female - The patient feels well with no complaints, has good energy level and is sleeping well. The first day of the last menstrual period was : (05/2015). The patient has a balanced diet. The patient sleeps 6 hours per night. Note for Well Adult, female: Pt has no concerns today. Weight is up 6 pounds since last OV. 07-12-2015 Unclassified (12 sources) Foot pain - The pain is in the right foot. The onset of the foot pain was acute and has been occurring in a persistent pattern for 3 days. The course has been constant. The pain is moderate. The pain is characterized as a sharp stabbing. The pain has been relieved by NSAIDs. The symptoms have been associated with swelling and painful ROM, but have not been associated with giving way. Note for Foot pain: Injured 3 days ago while at dog park. Her [place] ran into her leg and foot twisted. reviewed by [facility] 05-17-2024 Unclassified (4 sources) Well adult female - The patient feels well with no complaints, has good energy level and is sleeping well. The patient has a balanced diet and takes supplemental vitamins. The patient does not exercise. The patient sleeps 6 (5-7) hours per night. Note for Well adult female: -Will get flu vaccine today at work. 07-07-2024 Unclassified (4 sources) [ADDITIONAL REASON] Foot pain - The pain is in the right foot. The onset of the foot pain was acute and has been occurring in a persistent pattern for 2 months. The pain is mild to moderate. The pain is characterized as a sharp stabbing. The pain has been relieved by NSAIDs. Note for Foot pain: -Working with Dr Morse and has had an injection (only helped x 3 weeks) and using an orthotics. Pain persists. Has f/u with podiatry in a week or so. 07-07-2024 Unclassified (1 source) Foot pain - The pain is in the right foot. The onset of the foot pain was acute and has been occurring in a persistent pattern for 2 months. The pain is mild to moderate. The pain is characterized as a sharp stabbing. The pain has been relieved by NSAIDs. Note for Foot pain: -Working with Dr Morse and has had an injection (only helped x 3 weeks) and using an orthotics. Pain persists. Has f/u with podiatry in a week or so. 07-07-2024 Unclassified (1 source) [ADDITIONAL REASON] Well adult female - The patient feels well with no complaints, has good energy level and is sleeping well. The patient has a balanced diet and takes supplemental vitamins. The patient does not exercise. The patient sleeps 6 (5-7) hours per night. Note for Well adult female: -Will get flu vaccine today at work. 07-07-2024 Results Test Name Value Interpretation Reference Range Facility SCRN MAMM (CAD)W/MAGNO BILATo n 08-04-2024 SCRN MAMM (CAD)W/MAGNO BILAT [facility] Imaging Services [address] [place] [address] SCRN MAMM (CAD)W/MAGNO BILAT MR#: [id number] Acct: [id number] Name: YUKI GUAMAN Rep #: [id number] : 1970 F 54 From: Nguyễn york MD PCP: JANIE Coreas Status: REG CLI Study: SCRN MAMM (CAD)W/MAGNO BILAT Date of Exam: 01/21 Exam# [id number] Ordering Dr: Lauro Angeles -[id number] MAMMOGRAPHY - BILATERAL SCREENING REASON FOR EXAM: Female, 54 years old. Routine annual screening examination. PERTINENT HISTORY: Grandmother with breast cancer. Aunt with breast cancer. TECHNIQUE: Digital bilateral breast magno (3D mammographic acquisition) in the CC and MLO projections. 2-D mediolateral oblique (MLO) and craniocaudad (CC) views of both breasts were obtained. CAD: Full Field Digital Mammography with Computer Added Detection was performed. COMPARISON: Comparison is made with prior study July 31, 2023 and July 30, 2022. FINDINGS: Breast Composition: The breasts are heterogeneously dense, which may obscure small masses. There are no dominant masses or suspicious calcifications. Stable bilateral fat containing axillary lymph nodes. No other significant abnormalities are identified. There has been no significant change since the prior study. BI/SCRN MAMM (CAD)W/MAGNO BILAT IMPRESSION: Stable bilateral screening mammogram. Yearly follow-up mammogram recommended. (A) ASSESSMENT CATEGORY: BIRADS Category 2: Benign. A letter regarding these results will be sent to the patient by the facility within 30 days. Approximately 10% of breast cancers are not detected by mammography. A normal mammogram should not delay biopsy of a clinically suspicious abnormality. [id number] Electronically Signed: Nguyễn Bateman MD at 8:29 EST , CC: JANIE Coreas [employer] Cox[employer]: Signed Normal [facility] CBC W/Diff, Automatedon 11-0 Absolute Lymph 1.28 X10 3/uL Normal 0.83-4.51 [facility] Comment on above: Performed By: #### L 100.0100, L500.4050, L500.4100, L501.9520 #### [facility] [address] [place], [address] Absolute Neut 3.3 X10 3/uL Normal 2.0-7.7 [facility] Comment on above: Performed By: #### L 100.0100, L500.4050, L500.4100, L501.9520 #### [facility] [address] [place], [address] Basophils/100 WBC (Bld) 1.0 % Normal 0 - [address] [facility]; [facility] Comment on above: Performed By: #### L 100.0100, L500.4050, L500.4100, L501.9520 #### [facility] [address] [place], [address] Eosinophils/100 WBC (Bld) 10.9 % Abnormal 0 - 5 [facility]; [facility]. Comment on above: Performed By: #### L 100.0100, L500.4050, L500.4100, L501.9520 #### [facility] [address] [place], [address] Erythrocyte distribution width (RBC) [Ratio] 13.1 % Normal 11.6 - 14.6 [facility]; [facility] Comment on above: Performed By: #### L 100.0100, L500.4050, L500.4100, L501.9520 #### [facility] [address] [place], [address] Hematocrit (Bld) [Volume fraction] 42.2 % Normal 37 - 47 [facility]; [facility] Comment on above: Performed By: #### L 100.0100, L500.4050, L500.4100, L501.9520 #### [facility] [address] [place], [address] Hemoglobin (Bld) [Mass/Vol] 13.4 g/dL Normal 12.0 - 15.0 g/dL [facility]; [facility] Comment on above: Performed By: #### L 100.0100, L500.4050, L500.4100, L501.9520 #### [facility] [address] [place], [address] IG% 0.200 Normal 0.0 - 0.9 [facility]; [facility] Comment on above: Result Comment: IG% - Immature Granulocytes (promyelocytes, myelocytes and metamyelocytes) > 1% indicates that a LEFT SHIFT is Present. Performed By: #### L 100.0100, L500.4050, L500.4100, L501.9520 #### [facility] [address] [place], [address] Lymphocytes/100 WBC (Bld) 21.8 % Normal 19 - 41 [facility]; [facility] Comment on above: Performed By: #### L 100.0100, L500.4050, L500.4100, L501.9520 #### [facility] [address] [place], [address] MCH (RBC) [Entitic mass] 27.7 pg Normal 27.0 - 32.0 pg [facility]; [facility] Comment on above: Performed By: #### L 100.0100, L500.4050, L500.4100, L501.9520 #### [facility] [address] [place], [address] MCHC (RBC) [Mass/Vol] 31.8 g/dL Abnormal 32 - 36 g/dL [facility].; [facility] Comment on above: Performed By: #### L 100.0100, L500.4050, L500.4100, L501.9520 #### [facility] [address] [place], [address] MCV (RBC) [Entitic vol] 87.2 fL Normal 81 - [address] [facility]; [facility] Comment on above: Performed By: #### L 100.0100, L500.4050, L500.4100, L501.9520 #### [facility] [address] [place], [address] Monocytes/100 WBC (Bld) 9.9 % Normal 0 - [address] [facility]; [facility] Comment on above: Performed By: #### L 100.0100, L500.4050, L500.4100, L501.9520 #### [facility] [address] [place], [address] Neutrophils/100 WBC (Bld) 56.2 % Normal 47 - 70 [facility]; [facility]. Comment on above: Performed By: #### L 100.0100, L500.4050, L500.4100, L501.9520 #### [facility] [address] [place], [address] Nucleated RBC (Bld) [#/Vol] 0 10*3/uL Normal 0 - 5 [facility]; [facility] Comment on above: Performed By: #### L 100.0100, L500.4050, L500.4100, L501.9520 #### [facility] [address] [place], [address] Platelet mean volume (Bld) [Entitic vol] 10.0 fL Normal 6.2 - 12.0 fL [facility].; [facility] Comment on above: Performed By: #### L 100.0100, L500.4050, L500.4100, L501.9520 #### [facility] [address] [place], [address] Platelets (Bld) [#/Vol] 284 10*3/uL Normal 150 - 450 K/mm3 [facility].; [facility] Comment on above: Performed By: #### L 100.0100, L500.4050, L500.4100, L501.9520 #### [facility] [address] [place], [address] RBC (Bld) [#/Vol] 4.84 10*6/uL Normal 4.2 - 5.4 {M/mm3} [facility].; [facility]. Comment on above: Performed By: #### L 100.0100, L500.4050, L500.4100, L501.9520 #### [facility] [address] [place], [address] RDW SD 42.1 fL Normal 35.1 - 43.9 fL [facility]; [facility]. Comment on above: Performed By: #### L 100.0100, L500.4050, L500.4100, L501.9520 #### [facility] [address] [place], [address] WBC (Bld) [#/Vol] 5.9 10*3/uL Normal 4.4 - 11.0 K/mm3 [facility]; [facility]. Comment on above: Performed By: #### L 100.0100, L500.4050, L500.4100, L501.9520 #### [facility] [address] [place], [address] [facility] 07-04-2024 Albumin [Mass/Vol] 3.5 g/dL Normal 3.2 - 5.0 g/dL [facility].; [facility] Comment on above: Performed By: #### L 100.0100, L500.4050, L500.4100, L501.9520 #### [facility] [address] [place], [address] Albumin/Globulin [Mass ratio] 0.9 {ratio} Normal 0.9 - 2.4 {RATIO} [facility].; [facility], [facility] Comment on above: Performed By: #### L 100.0100, L500.4050, L500.4100, L501.9520 #### [facility] [address] [place], [address] ALK P 116 U/L Normal 45 - 117 U/L [facility]; [facility], [facility]. Comment on above: Performed By: #### L 100.0100, L500.4050, L500.4100, L501.9520 #### [facility] [address] [place], [address] ALT [Catalytic activity/Vol] 24 U/L Normal 13 - 56 U/L [facility].; [facility] Comment on above: Performed By: #### L 100.0100, L500.4050, L500.4100, L501.9520 #### [facility] [address] [place], [address] AST [Catalytic activity/Vol] 23 U/L Normal 15 - 37 U/L [facility]; [facility] Comment on above: Performed By: #### L 100.0100, L500.4050, L500.4100, L501.9520 #### [facility] [address] [place], [address] Bilirubin [Mass/Vol] 0.40 mg/dL Normal 0.20 - 1.00 mg/dL [facility]; [facility] Comment on above: Result Comment: For patients on eltrombopag therapy, use of Dimension [place] TBIL is not recommended. Performed By: #### L 100.0100, L500.4050, L500.4100, L501.9520 #### [facility] [address] [place], [address] BUN/CRE 17.5 RATIO Normal 10-20 [facility] Comment on above: Performed By: #### L 100.0100, L500.4050, L500.4100, L501.9520 #### [facility] [address] [place], [address] CA,Total 9.0 mg/dL Normal 8.5-10.1 [facility] Comment on above: Performed By: #### L 100.0100, L500.4050, L500.4100, L501.9520 #### [facility] [address] [place], [address] Chloride [Moles/Vol] 108 mmol/L Abnormal 98 - 10 7 mmol/L [facility]; [facility]. Comment on above: Performed By: #### L 100.0100, L500.4050, L500.4100, L501.9520 #### [facility] [address] [place], [address] CO2 [Moles/Vol] 25.0 mmol/L Normal 21.0 - 32.0 mmol/L [facility]; [facility] Comment on above: Performed By: #### L 100.0100, L500.4050, L500.4100, L501.9520 #### [facility] [address] [place], [address] Creatinine [Mass/Vol] 0.92 mg/dL Normal 0.55 - 1.02 mg/dL [facility].; [facility] Comment on above: Result Comment: The validity of the calculated GFR GFRAA in patients over 70 years has not been determined. Clinical correlation is essential. Performed By: #### L 100.0100, L500.4050, L500.4100, L501.9520 #### [facility] [address] [place], [address] EST GFR - AA 82 mL/min Normal [facility]; [facility] Comment on above: Result Comment: Afri can [place] GFR Calc Performed By: #### L 100.0100, L500.4050, L500.4100, L501.9520 #### [facility] [address] [place], [address] GAP 6 Normal 5 - 15 [facility]; [facility] Comment on above: Performed By: #### L 100.0100, L500.4050, L500.4100, L501.9520 #### [facility] [address] [place], [address] GFR/1.73 sq M.predicted among non-blacks MDRD (S/P/Bld) [Vol rate/Area] 68 mL/min/{1.73_m2} Normal [facility]; [facility]. Comment on above: Result Comment: Non- GFR Calc Performed By: #### L 100.0100, L500.4050, L500.4100, L501.9520 #### [facility] [address] [place], [address] Globulin (S) [Mass/Vol] 3.8 g/dL Normal 2.2 - 4.2 g/dL [facility]; [facility], [facility]. Comment on above: Performed By: #### L 100.0100, L500.4050, L500.4100, L501.9520 #### [facility] [address] [place], [address] Glucose [Mass/Vol] 86 mg/dL Normal 74 - 106 mg/dL [facility].; [facility]. Comment on above: Performed By: #### L 100.0100, L500.4050, L500.4100, L501.9520 #### [facility] [address] [place], [address] Potassium [Moles/Vol] 4.1 mmol/L Normal 3.5 - 5.1 mmol/L [facility]; [facility] Comment on above: Performed By: #### L 100.0100, L500.4050, L500.4100, L501.9520 #### [facility] [address] [place], [address] Sodium [Moles/Vol] 140 mmol/L Normal 136 - 145 mmol/L [facility]; [facility]. Comment on above: Performed By: #### L 100.0100, L500.4050, L500.4100, L501.9520 #### [facility] [address] [place], [address] T PROT 7.3 g/dL Normal 6.4 - 8.2 g/dL [facility]; [facility] Comment on above: Performed By: #### L 100.0100, L500.4050, L500.4100, L501.9520 #### [facility] [address] [place], [address] Urea nitrogen [Mass/Vol] 16 mg/dL Normal 7 - 18 mg/dL [facility]; [facility] Comment on above: Performed By: #### L 100.0100, L500.4050, L500.4100, L501.9520 #### [facility] [address] [place], [address] Laboratory - Chemistry and C hemistry - challengeon 07-04-2024 Magnesium [Mass/Vol] 9.0 mg/dL Normal 8.5 - 1 0.1 mg/dL [facility].; [facility] Lipid Profileon 07-04-2024 Cholesterol [Mass/Vol] 183 mg/dL Normal [facility]; [facility], [facility] Comment on above: Result Comment: <200 mg/dL Desirable 200-240 mg/dL Borderline >240 mg/dL High Risk Performed By: #### L 100.0100, L500.4050, L500.4100, L501.9520 #### [facility] [address] [place], [address] Cholesterol in HDL [Mass/Vol] 46 mg/dL Normal [facility]; [facility] Comment on above: Result Comment: The drugs N-Acetylcysteine and Metamizole may falsely depress this assay. Reference Range HDL <40 mg/dL Low HDL Cholesterol HDL >or= 60 mg/dL High HDL Cholesterol Performed By: #### L 100.0100, L500.4050, L500.4100, L501.9520 #### [facility] [address] [place], [address] Cholesterol in LDL [Mass/Vol] 114 mg/dL Normal 0 - 130 mg/dL [facility].; [facility] Comment on above: Performed By: #### L 100.0100, L500.4050, L500.4100, L501.9520 #### [facility] [address] [place], [address] Cholesterol in VLDL [Mass/Vol] 23 mg/dL Normal 5 - 40 mg/dL [facility].; [facility] Comment on above: Performed By: #### L 100.0100, L500.4050, L500.4100, L501.9520 #### [facility] [address] [place], [place], [address] Triglyceride [Mass/Vol] 113 mg/dL [facility].; [place] [employer] [facility] Comment on above: Result Comment: The drugs N-Acetylcysteine and Metamizole may falsely depress this assay. Serum Triglycerides Reference Interval Normal <150 mg/dL Borderline high 150 - 199 mg/dL High 200 - 499 mg/dL Very High > or = 500 mg/dL Performed By: #### L 100.0100, L500.4050, L500.4100, L501.9520 #### [facility] [address] [place], [address] No Panel Informationon 07-04 Absolute Lymph 1.28 {X10_3/uL} Normal 0.83 - 4.5 1 {X10_3/uL} [place] [employer] [facility] [employer] Absolute Neut 3.3 {X10_3/uL} Normal 2.0 - 7.7 {X10_3/uL} [place] [employer] [facility], [facility].; [employer] [facility] BUN/CRE 17.5 {RATIO} Normal 10 - 20 {RATIO} [place] [employer] [facility].; [employer] [facility] TSH 3.000 {uIU/mL} Normal 0.358 - 3.740 {uIU/mL} [place] [employer] [facility].; [employer] [facility] Thyroid Stim Hormone (TSH)on 07-04-2024 TSH 3.000 uIU/mL Normal 0.358-3.740 [facility] Comment on above: Performed By: #### L 100.0100, L500.4050, L500.4100, L501.9520 #### [facility] [address] [place], [place], [address] Foot min 3 Viewson 09-18-202 4 Foot min 3 Views [facility] Imaging Services [address] [place] [address] Foot min 3 Views MR#: [id number] Acct: [id number] Name: YUKI GUAMAN Rep #: [id number] : 1970 F 53 From: Chinmay awad MD PCP: JANIE Coreas Status: REG CLI Study: Foot min 3 Views Date of Exam: 05/18/24 Exam# [id number] Ordering Dr: Kamlesh Cruz MD -[id number] EXAM: XR RIGHT FOOT COMPLETE, 3 OR MORE VIEWS CLINICAL INDICATION: RIGHT FOOT INJURY TECHNIQUE: Frontal, lateral and oblique views of the right foot. COMPARISON: Left foot radiographs of 02/23/2024. FINDINGS: BONES/JOINTS: Moderate sized plantar and posterior calcaneal spurs are present. Bony bunion formation noted along the medial aspect of the first metatarsal head, with mild overlying soft tissue swelling. Mild degenerative spurring noted about the first MTP joint. The medial sesamoid bone plantar to the first metatarsal head is bipartite, a normal variant. No acute fracture or dislocation. No sclerotic or destructive changes observed. SOFT TISSUES: See above. No opaque foreign body. RAD/Foot min 3 Views IMPRESSION: No acute fracture or dislocation identified. Electronically Signed: Chinmay Eduardo MD at 22:38 EDT , CC: Dr. Kamlesh Cruz MD; JANIE Coreas [employer]: Signed Normal [facility] Foot min 3 Viewson 4 Foot min 3 Views [facility] Imaging Services [address] [place] [address] (734) Foot min 3 Views MR#: [id number] Acct: [id number] Name: YUKI GUAMAN Rep #: [id number] : 1970 F 53 From: Sathish Veliz PCP: JANIE Coreas Status: REG CLI Study: Foot min 3 Views Date of Exam: 02/23/24 Exam# [id number] Ordering Dr: Lauro Angeles -[id number] EXAM: XR LEFT FOOT COMPLETE, 3 OR MORE VIEWS CLINICAL INDICATION: PAIN TECHNIQUE: Frontal, lateral and oblique views of the left foot. COMPARISON: No relevant prior studies available. FINDINGS: BONES/JOINTS: Unremarkable. No acute fracture. No subluxation. Normal alignment. Preservation of the joint space. No sclerotic or destructive changes observed. SOFT TISSUES: Unremarkable. No soft tissue swelling or gas. No radiopaque foreign body. RAD/Foot min 3 Views IMPRESSION: Negative left foot x-rays. Electronically Signed: Sathish Bosch MD at 6:42 EDT , CC: JANIE Coreas [employer]: Signed Normal [facility] Basophil percentageOrdered B y: Lauro Angeles on 06-18-2023 Bilirubin [Mass/Vol] 0.30 mg/dL Normal 0.20 - 1.00 mg/dL [facility] Comment on above: For patients on eltr ombopag therapy, use of Dimension [place] TBIL is not recommended. Chloride [Moles/Vol] 111 mmol/L Abnormal 98 - 10 7 mmol/L [facility] Cholesterol [Mass/Vol] 180 mg/dL Normal [facility] Comment on above: <200 mg/dL Desirable 200-240 mg/dL Borderline >240 mg/dL High Risk Glucose [Mass/Vol] 101 mg/dL Normal 74 - 106 mg/dL [facility] Comment on above: Fasting Glucose resu lt from 100 to 125 mg/dL suggests IMPAIRED HOMEOSTASIS per A.D.A. criteria. Potassium [Moles/Vol] 4.2 mmol/L Normal 3.5 - 5.1 mmol/L [facility] Protein [Mass/Vol] 7.4 g/dL 6.4-8.2 [facility] Sodium [Moles/Vol] 142 mmol/L Normal 136 - 145 mmol/L [facility] Triglyceride [Mass/Vol] 89 mg/dL Normal [facility] Comment on above: The drugs N-Acetylcy steine and Metamizole may falsely depress this assay.Serum Triglycerides Reference Interval Normal <150 mg/dL Borderline high 150 - 199 mg/dL High 200 - 499 mg/dL Very High > or = 500 mg/dL Laboratory - Chemistry and C hemistry - challengeon 06-18-2023 AST [Catalytic activity/Vol] 15 U/L Normal 15 - 37 U/L [employer], [employer]. GFR/1.73 sq M.predicted among non-blacks MDRD (S/P/Bld) [Vol rate/Area] 70 mL/min/{1.73_m2} Normal [employer], [employer] Magnesium [Mass/Vol] 8.9 mg/dL Normal 8.5 - 1 0.1 mg/dL [employer] Laboratory - Chemistry and C hemistry - challengeOrdered By: Lauro Angeles on 06-18-2023 ALP [Catalytic activity/Vol] 107 U/L 45-117 [facility] ALT [Catalytic activity/Vol] 20 U/L Normal 13 - 56 U/L [facility] CO2 [Moles/Vol] 25.0 mmol/L Normal 21.0 - 32.0 mmol/L [facility] Globulin (S) [Mass/Vol] 4.1 g/dL Normal 2.2 - 4.2 g/dL [facility] Urea nitrogen/Creatinine [Mass ratio] 14.6 mg/mg - [facility] No Panel Informationon 06-18 ALK P 107 U/L Normal 45 - 117 U/L [facility], [employer] BUN/CRE 14.6 {RATIO} Normal {RATIO} [employer] EST GFR - AA 85 mL/min Normal [employer], [employer], [employer]. GAP 6 Normal 5 - 15 [employer] T PROT 7.4 g/dL Normal 6.4 - 8.2 g/dL [facility], [facility]. No Panel InformationOrdered By: Lauro Angeles on 06-18-2023 Estimated GFR (MDRD) Amer 85 mL/min >60 [facility] Comment on above: GFR Calc Estimated GFR (MDRD) Non-Af Amer 70 mL/min >60 [facility] Comment on above: Non- GFR Calc Serum or plasma albumin bar urement (mass/volume)Ordered By: Lauro Angeles on 06-18-2023 Albumin [Mass/Vol] 3.3 g/dL Normal 3.2 - 5.0 g/dL [facility] Serum or plasma albumin/glob ulin mass ratioOrdered By: Lauro Angeles on 06-18-2023 Albumin/Globulin [Mass ratio] 0.8 {ratio} Abnormal 0.9 - 2.4 {RATIO} [facility] Serum or plasma calcium bar urement (mass/volume)Ordered By: Lauro Angeles on 06-18-2023 Calcium [Mass/Vol] 8.9 mg/dL 8.5-10.1 [facility] Serum or plasma cholesterol in HDL measurement (mass/volume)Ordered By: Lauro Angeles 06-18-2023 Cholesterol in HDL [Mass/Vol] 41 mg/dL Normal [facility] Comment on above: The drugs N-Acetylcy steine and Metamizole may falsely depress this assay. Reference Range HDL <40 mg/dL Low HDL Cholesterol HDL >or= 60 mg/dL High HDL Cholesterol Serum or plasma cholesterol in VLDL measurement (mass/volume)Ordered By: Lauro Angeles on 06-18-2023 Cholesterol in VLDL [Mass/Vol] 18 mg/dL Normal 5 - 40 mg/dL [facility] Serum or plasma creatinine m easurement (mass/volume)Ordered By: Lauro Angeles 06-18-2023 Creatinine [Mass/Vol] 0.89 mg/dL Normal 0.55 - 1.02 mg/dL [facility] Comment on above: The validity of the calculated GFR & GFRAA in patients over 70 years has not been determined. Clinical correlation is essential. Serum or plasma low density lipoprotein (LDL) cholesterol measurement (mass/volume)Ordered By: Lauro Angeles on 06-18-2023 Cholesterol in LDL [Mass/Vol] 121 mg/dL Normal 0 - 130 mg/dL [facility] Serum or plasma urea nitroge n measurement (mass/volume)Ordered By: Lauro Angeles on 06-18-2023 Urea nitrogen [Mass/Vol] 13 mg/dL Normal 7 - 18 mg/dL [facility] Thin prep Papanicolaou smear with manual screeningOrdered By: Lauro De Leoner on 06-18-2023 Thin prep Papanicolaou smear with manual screening 15 U/L 15-37 [facility] Thin prep Papanicolaou smear with manual screening 6 5-15 [facility] Basophil percentageon 2021 Bilirubin [Mass/Vol] 0.40 mg/dL Normal 0.20 - 1.00 mg/dL [facility], [facility].; [facility], [facility] Comment on above: For patients on eltr ombopag therapy, use of Dimension [place] TBIL is not recommended. Chloride [Moles/Vol] 108 mmol/L Abnormal 98 - 10 7 mmol/L [facility], [facility].; [place] [employer] [facility], [facility] Cholesterol [Mass/Vol] 196 mg/dL Normal [facility], [facility].; [facility] Comment on above: <200 mg/dL Desirable 200-240 mg/dL Borderline >240 mg/dL High Risk Glucose [Mass/Vol] 95 mg/dL Normal 74 - 106 mg/dL [facility], [facility].; [place] [employer] [facility], Inc Potassium [Moles/Vol] 4.0 mmol/L Normal 3.5 - 5.1 mmol/L [facility], [facility].; [employer] [facility], [facility] Protein [Mass/Vol] 7.5 g/dL 6.4-8.2 [facility] Work Phone: Sodium [Moles/Vol] 138 mmol/L Normal 136 - 145 mmol/L [facility], [facility].; [place] [employer] [facility], [facility] Triglyceride [Mass/Vol] 177 mg/dL Normal [facility], [facility].; [place] [employer] [facility], [employer] Comment on above: The drugs N-Acetylcy steine and Metamizole may falsely depress this assay.Serum Triglycerides Reference Interval Normal <150 mg/dL Borderline high 150 - 199 mg/dL High 200 - 499 mg/dL Very High > or = 500 mg/dL Laboratory - Chemistry and C hemistry - challengeon 07-28-2022 AST [Catalytic activity/Vol] 20 U/L Normal 15 - 37 U/L [employer], [employer]. GFR/1.73 sq M.predicted among non-blacks MDRD (S/P/Bld) [Vol rate/Area] 71 mL/min/{1.73_m2} Normal [employer]; [employer] Magnesium [Mass/Vol] 9.1 mg/dL Normal 8.5 - 1 0.1 mg/dL [employer].; [employer] ALP [Catalytic activity/Vol] 108 U/L 45-117 [facility] Work Phone: ALT [Catalytic activity/Vol] 21 U/L Normal 13 - 56 U/L [employer].; [employer] CO2 [Moles/Vol] 26.0 mmol/L Normal 21.0 - 32.0 mmol/L [employer].; [employer]. Globulin (S) [Mass/Vol] 4.2 g/dL Normal 2.2 - 4.2 g/dL [employer].; [employer] Urea nitrogen/Creatinine [Mass ratio] 13.5 mg/mg 10-20 [facility] Work Phone: No Panel Informationon 07-28 ALK P 108 U/L Normal 45 - 117 U/L [employer]; [employer] BUN/CRE 13.5 {RATIO} Normal 10 - 20 {RATIO} [employer].; [employer], [employer]. EST GFR - AA 86 mL/min Normal [facility] [employer] GAP 4 Abnormal 5 - 15 [employer].; [employer] T PROT 7.5 g/dL Normal 6.4 - 8.2 g/dL [employer].; [employer] Estimated GFR (MDRD) Amer 86 mL/min >60 [facility] Work Phone: Comment on above: GFR Calc Estimated GFR (MDRD) Non-Af Amer 71 mL/min >60 [facility] Work Phone: Comment on above: Non- GFR Calc Serum or plasma albumin bar urement (mass/volume)on 07-28-2022 Albumin [Mass/Vol] 3.3 g/dL Normal 3.2 - 5.0 g/dL [facility]; [place] [employer] [facility]. Serum or plasma albumin/glob ulin mass ratioon 07-28-2022 Albumin/Globulin [Mass ratio] 0.8 {ratio} Abnormal 0.9 - 2.4 {RATIO} [facility]; [place] [employer] [facility]. Serum or plasma calcium bar urement (mass/volume)on 07-28-2022 Calcium [Mass/Vol] 9.1 mg/dL 8.5-10.1 [facility] Work Phone: Serum or plasma cholesterol in HDL measurement (mass/volume)on 07-28-2022 Cholesterol in HDL [Mass/Vol] 39 mg/dL Abnormal [place] [employer] [facility]; [employer] Comment on above: The drugs N-Acetylcy steine and Metamizole may falsely depress this assay. Reference Range HDL <40 mg/dL Low HDL Cholesterol HDL >or= 60 mg/dL High HDL Cholesterol Serum or plasma cholesterol in VLDL measurement (mass/volume)on 07-28-2022 Cholesterol in VLDL [Mass/Vol] 35 mg/dL Normal 5 - 40 mg/dL [facility].; [employer]. Serum or plasma creatinine m easurement (mass/volume)on 07-28-2022 Creatinine [Mass/Vol] 0.89 mg/dL Normal 0.55 - 1.02 mg/dL [facility]; [place] [employer]. Comment on above: The validity of the calculated GFR & GFRAA in patients over 70 years has not been determined. Clinical correlation is essential. Serum or plasma low density lipoprotein (LDL) cholesterol measurement (mass/volume)on 07-28-2022 Cholesterol in LDL [Mass/Vol] 122 mg/dL Normal 0 - 130 mg/dL [facility]. Serum or plasma urea nitroge n measurement (mass/volume)on 07-28-2022 Urea nitrogen [Mass/Vol] 12 mg/dL Normal 7 - 18 mg/dL [facility].; [facility], [facility]. Thin prep Papanicolaou smear with manual screeningon 07-28-2022 Thin prep Papanicolaou smear with manual screening 20 U/L 15-37 [facility] Work Phone: Thin prep Papanicolaou smear with manual screening 4 5-15 [facility] Work Phone: No Panel Informationon 04-24 Hepatitis B Surface Antibody Reactive [facility] Work Phone: Comment on above: Non Reactive: Incons istent with immunity less than <10 mIU/mL Reactive: Consistent with immunity greater than or equal to 10 mIU/mL SHOULDER COMPLETE RTon 11-18 SHOULDER COMPLETE RT [place] [id number] Patient: YUKI GUAMAN Phone#: : 1970 Age: 51 Gender: F Pt. Type: Out Account: [id number] Location: Ordering: [facility] Exam Date: 11/18/2021/14:36 Family Phys: Charge Code: [id number] Physician: [place] Order #: [id number] DLP Dose#: PROCEDURE: X-RAY SHOULDER COMPLETE RT MIN 2 VIEWS COMPARISON: None. INDICATIONS: Shoulder Pain. FINDINGS: BONES: Normal. No significant arthropathy or acute abnormality. Humeral head is normal in contour. The joint space is maintained. SOFT TISSUES: Negative. No visible soft tissue swelling. EFFUSION: None visible. OTHER: Negative. CONCLUSION: 1. No acute osseous abnormality Dictated by: Marie Wright MD on 11/18/2021 at 20:24 Approved by: Marie Wright MD on 11/18/2021 at 20:25 Normal [facility] 3D MAMM BILAT SCREENon 07-18 3D MAMM BILAT SCREEN [place] [id number] Patient: YUKI GUAMAN Phone#: : 1970 Age: 51 Gender: F Pt. Type: Out Account: [id number] Location: Ordering: [facility] Exam Date: 07/18/2021/8:14 Family Phys: Charge Code: [id number] Physician: [place] Order #: [id number] DLP Dose#: PROCEDURE: BILATERAL SCREENING BREAST TOMOSYNTHESIS MAMMOGRAM WITH CAD COMPARISON: [facility], BILAT SCREENING, 10/29/2017, 7:59. [facility], BILAT SCREENING, 08/09/2019, 15:07. INDICATIONS: screening BREAST COMPOSITION: Heterogeneously dense,which could obscure small masses(51-75% glandular). FINDINGS: DIAGNOSTIC CATEGORY 1--NEGATIVE ASSESSMENT. RIGHT BREAST: No significant suspicious finding. No significant change has occurred. LEFT BREAST: No significant suspicious finding. No significant change has occurred. RECOMMENDATIONS: ROUTINE MAMMOGRAM AND CLINICAL EVALUATION IN 12 MONTHS. PLEASE NOTE: A NORMAL MAMMOGRAM DOES NOT EXCLUDE THE POSSIBILITY OF BREAST CANCER. A CLINICALLY SUSPICIOUS PALPABLE LUMP SHOULD BE BIOPSIED. THIS FACILITY UTILIZES A REMINDER SYSTEM TO ENSURE THAT ALL PATIENTS RECEIVE REMINDER LETTERS FOR APPOINTMENTS. THIS INCLUDES REMINDERS FOR ROUTINE MAMMOGRAMS, DIAGNOSITC MAMMOGRAMS, OR OTHER BREAST IMAGING INTERVENTIONS WHEN APPROPRIATE. THIS PATIENT WILL BE PLACED IN THE APPROPRIATE REMINDER SYSTEM. Dictated by: Marie Wright MD on 07/18/2021 at 10:22 Approved by: Marie Wright MD on 07/18/2021 at 10:24 Normal [facility] CMP with eGFRon 06-15-2021 AGE 51 years Normal [facility] Comment on above: Performed By: #### 2 [id number] #### [facility],[address] [place], [place] [id number] Albumin [Mass/Vol] 3.4 g/dL Normal 3.4 - 5.0 g/dL [facility] Comment on above: Performed By: #### 2 [id number] #### [facility],[address] [place] [address] Albumin/Globulin [Mass ratio] 0.8 {ratio} Low 0.9 - 1.6 [facility] Comment on above: Performed By: #### 2 [id number] #### [facility],[address] [place] [address] ALK PHOS 89 U/L Normal 46 - 116 [facility] Comment on above: Performed By: #### 2 08466 #### [facility],[address] [place] [address] ALT [Catalytic activity/Vol] 20 U/L Normal 14 - 59 U/L [facility].; [facility], [facility]. Comment on above: Performed By: #### 2 [id number] #### [place] [address] Anion gap [Moles/Vol] 13 mmol/L Normal 10 - 2 0 mmol/L [facility].; [facility]. Comment on above: Performed By: #### 2 [id number] #### [place] [address] AST [Catalytic activity/Vol] 17 U/L Normal 13 - 39 U/L [facility].; [facility], [facility]. Comment on above: Performed By: #### 2 08338 #### [place] [address] B/C RATIO 14 ratio Normal 0 - 30 [facility] Comment on above: Performed By: #### 2 12810 #### [place] [address] Bilirubin [Mass/Vol] 0.4 mg/dL Normal 0.2 - 1 .0 mg/dL [facility].; [facility], [facility]. Comment on above: Performed By: #### 2 54312 #### [place] [id number] Calcium [Mass/Vol] 8.6 mg/dL Normal 8.5 - 10. 1 mg/dL [facility].; [facility]. Comment on above: Performed By: #### 2 33531 #### [facility],[address] [place], [place] [id number] Chloride [Moles/Vol] 105 mmol/L Normal 98 - 10 7 mmol/L [facility].; [facility] Comment on above: Performed By: #### 2 81985 #### [place] [address] CMP with eGFR Normal [facility] Comment on above: Result Comment: COMP REHENSIVE METABOLIC PANEL Performed By: #### 2 [id number] #### [place] [address] CO2 [Moles/Vol] 25.3 mmol/L Normal 21.0 - 32.0 mmol/L [facility].; [facility], [facility]. Comment on above: Performed By: #### 2 08505 #### [place] [address] Creatinine [Mass/Vol] 0.76 mg/dL Normal 0.55 - 1.02 mg/dL [facility].; [facility]. Comment on above: Performed By: #### 2 74440 #### [place] [id number] GFR/1.73 sq M.predicted among non-blacks MDRD (S/P/Bld) [Vol rate/Area] mL/min/{1.73_m2} Normal 60 - 999 [facility] Comment on above: Performed By: #### 2 37190 #### [place] [address] Result Comment: ACCO RDING TO THE NATIONAL KIDNEY DISEASE EDUCATION PROGRAM(NKDE), A NORMAL eGFR IS A VALUE GREATER THAN OR EQUAL TO 60 ML/MIN/1.73 SQ METERS. CHRONIC KIDNEY DISEASE: <60mL/MIN/1.73 SQ METERS KIDNEY FAILURE: <15mL/MIN/1.73 SQ METERS THIS TEST SHOULD ONLY BE USED FOR PATIENTS 18 YEARS OF AGE AND OLDER. Globulin (S) [Mass/Vol] 4.1 g/dL Abnormal 1.5 - 3.8 g/dL [facility], [facility]. Comment on above: Performed By: #### 2 58372 #### [place] [address] Glucose [Mass/Vol] 96 mg/dL Normal 74 - 106 mg/dL [facility], [facility].; [facility], [facility]. Comment on above: Performed By: #### 2 81262 #### [place] [address] Potassium [Moles/Vol] 4.1 mmol/L Normal 3.5 - 5.1 mmol/L [facility], [facility].; [facility] Comment on above: Performed By: #### 2 13292 #### [address] [address] Protein [Mass/Vol] 7.5 g/dL Normal 6.4 - 8.2 g/dL [facility], [facility].; [facility] Comment on above: Performed By: #### 2 04281 #### [address] [address] Sodium [Moles/Vol] 139 mmol/L Normal 136 - 145 mmol/L [facility], [facility].; [facility] Comment on above: Performed By: #### 2 93272 #### [place] [address] Urea nitrogen [Mass/Vol] 11 mg/dL Normal 7 - 18 mg/dL [facility], [facility].; [facility] Comment on above: Performed By: #### 2 10040 #### [place] [phone] LIPID PROFILEon 06-15-2021 Cholesterol [Mass/Vol] 205 mg/dL Normal 0 - 240 mg/dL [facility], [facility].; [facility], [facility]. Comment on above: Performed By: #### 2 72203 #### [facility],[address] [place] [address] Cholesterol in HDL [Mass/Vol] 44 mg/dL Normal 40 - 60 [facility] Comment on above: Performed By: #### 2 28811 #### [facility],[address] [place] [address] Cholesterol in LDL [Mass/Vol] 140 mg/dL Abnormal 0 - 129 mg/dL [facility], [facility].; [facility], [facility]. Comment on above: Performed By: #### 2 41292 #### [address] [address] Cholesterol.total/Nuzhat sterol in HDL [Mass ratio] 4.7 {ratio} Normal 0.0 - 5.0 [facility], [facility]. Comment on above: Performed By: #### 2 53877 #### [address] [address] Lipid 1996 panel Normal [facility] Comment on above: Result Comment: LIPI D PROFILE Performed By: #### 2 14332 #### [address] [address] Triglyceride [Mass/Vol] 103 mg/dL Normal 0 - 150 mg/d L [facility] Comment on above: Performed By: #### 2 34505 #### [address] [address] Laboratory - Chemistry and C hemistry - challengeon 06-15-2021 Albumin [Mass/Vol] 0.8 g/dL Abnormal 0.9 - 1.6 [facility] ALP [Catalytic activity/Vol] 89 U/L Normal 46 - 116 U/L [facility]; [facility]. ALT No additional P-5'-P [Catalytic activity/Vol] 20 U/L Normal 14 - 59 U/L [facility]; [facility] Cholesterol in HDL [Mass or moles/Vol] 44 mg/dL Normal 40 - 60 mg/dL [facility]; [facility] Comprehensive metabolic 2000 panel CMP with eGFR Normal [facility]; [facility] GFR/1.73 sq M.predicted among blacks MDRD (S/P/Bld) [Vol rate/Area] mL/min/{1.73_m2} Normal 60 - 999 {ML/MINUTE} [facility]; [facility] GFR/1.73 sq M.predicted MDRD (S/P/Bld) [Vol rate/Area] mL/min/{1.73_m2} Normal 60 - 999 {ML/MINUTE} [facility]; [facility] Lipid 1996 panel LIPID PROFILE Normal [facility]; [facility] Urea nitrogen/Creatinine [Mass ratio] 14 {ratio} Normal 0 - 30 {ratio} [facility]; [facility] No Panel Informationon 06-15 AGE 51 {years} Normal [facility]; [facility] CULTURE, URINE, ROUTINEon CULTURE, URINE, ROUTINE SEE NOTE Normal [facility] Comment on above: Result Comment: CULTURE, URINE, ROUTINE Micro Number: [id number] Test Status: Final Specimen Source: URINE Specimen Quality: Adequate Result: Growth of mixed emelyn was isolated, suggesting probable contamination. No further testing will be performed. If clinically indicated, recollection using a method to minimize contamination, with prompt transfer to Urine Culture Transport Tube, is recommended. Performed By: #### 3 [id number] #### [facility] [address], [address] [place] [address] Post Exchange Manager: Pedrito Robert MD Laboratory - Chemistry and C hemistry - challengeon 11-16-2020 Bilirubin Ql (U) Negative Normal [facility].; [place] Ketones Ql (U) Negative Normal [facility] [employer]. pH (U) 5.5 [pH] Normal [place] [employer].; [employer]. Specific gravity (U) [Rel density] 1.025 Normal [facility].; [employer] Urobilinogen Qn (U) 0.2 mg/dL Normal [facility].; [employer]. Laboratory - Specimen inform ationon 11-16-2020 Appearance (U) cloudy Abnormal [facility]; [place] [employer] Color (U) yellow Normal [facility]; [employer] Laboratory - Urinalysison Glucose Test strip (U) [Mass/Vol] Negative Normal [facility]; [employer]. Leukocyte esterase Test strip Ql (U) small Abnormal [facility]; [employer]. Nitrite Ql (U) Negative Normal [facility].; [employer] Protein Ql (U) Negative Normal [facility].; [employer]. No Panel Informationon 11-16 CULTURE, URINE, ROUTINE SEE NOTE Normal [facility] [employer] Laboratory - Hematology and Cell countson 07-19-2020 Hemoglobin (Bld) [Mass/Vol] 13 g/dL Normal 11.5 - 14.2 g/dL [facility].; [employer]. Laboratory - Chemistry and C hemistry - challengeon 06-21-2020 Albumin [Mass/Vol] 3.8 g/dL Normal 3.4 - 4.8 g/dL [facility]; [employer]. Albumin [Mass/Vol] 1.2 g/dL Normal 0.9 - 1.[address] [place] [employer] [facility].; [employer] ALP [Catalytic activity/Vol] 82 U/L Normal 38 - 126 U/L [facility].; [facility], [facility]. ALT [Catalytic activity/Vol] 11 U/L Normal 8 - 35 U/L [facility].; [facility]. ALT No additional P-5'-P [Catalytic activity/Vol] 11 U/L Normal 8 - 35 U/L [facility].; [facility], [facility]. Anion gap [Moles/Vol] 11 mmol/L Normal 10 - 2 0 mmol/L [facility].; [facility]. AST [Catalytic activity/Vol] 15 U/L Normal 13 - 39 U/L [facility].; [facility], [facility]. Bilirubin [Mass/Vol] 0.3 mg/dL Normal 0.0 - 1 .5 mg/dL [facility].; [facility], [facility]. Calcium [Mass/Vol] 8.9 mg/dL Normal 8.6 - 10. 2 mg/dL [facility].; [facility], [facility]. Chloride [Moles/Vol] 107 mmol/L Normal 98 - 10 7 mmol/L [facility].; [facility], [facility]. Cholesterol [Mass/Vol] 209 mg/dL Abnormal 0 - 200 mg/dL [facility].; [facility], [facility]. Cholesterol in HDL [Mass or moles/Vol] 40 mg/dL Normal 40 - 60 mg/dL [facility].; [facility], [facility]. Cholesterol in LDL [Mass/Vol] 155 mg/dL Abnormal 0 - 129 mg/dL [facility].; [facility], [facility]. Cholesterol.total/Nuzhat sterol in HDL [Mass ratio] 5.2 {ratio} Abnormal 0.0 - 5.0 [facility].; [facility], [facility]. CO2 [Moles/Vol] 22.7 mmol/L Normal 21.0 - 31.0 mmol/L [facility].; [facility], [facility]. Comprehensive metabolic 2000 panel CMP with eGFR Normal [facility].; [facility], [facility] Creatinine [Mass/Vol] 0.8 mg/dL Normal 0.6 - 1.2 mg/dL [facility]; [employer]. GFR/1.73 sq M.predicted among blacks MDRD (S/P/Bld) [Vol rate/Area] mL/min/{1.73_m2} Normal 60 - 999 {ML/MINUTE} [facility], [facility].; [place] [email or web address], [employer]. GFR/1.73 sq M.predicted MDRD (S/P/Bld) [Vol rate/Area] mL/min/{1.73_m2} Normal 60 - 999 {ML/MINUTE} [facility] [facility].; [employer]. Globulin (S) [Mass/Vol] 3.3 g/dL Normal 1.5 - 3.8 g/dL [place] [facility].; [employer], [employer]. Glucose [Mass/Vol] 91 mg/dL Normal 74 - 106 mg/dL [place] [facility].; [employer]. Lipid 1996 panel LIPID PROFILE Normal [facility].; [place] [employer]. Potassium [Moles/Vol] 4.0 mmol/L Normal 3.5 - 5.1 mmol/L [facility].; [place] [email or web address], [employer]. Protein [Mass/Vol] 7.1 g/dL Normal 6.4 - 8.3 g/dL [place] [facility].; [employer], [employer]. Sodium [Moles/Vol] 137 mmol/L Normal 136 - 145 mmol/L [place] [facility], [employer].; [employer], [employer]. Triglyceride [Mass/Vol] 71 mg/dL Normal 0 - 150 mg/d L [place] [facility].; [employer]. Urea nitrogen [Mass/Vol] 17 mg/dL Normal 6 - 20 mg/dL [place] [employer] [facility].; [employer], [employer]. Urea nitrogen/Creatinine [Mass ratio] 21 {ratio} Normal 0 - 30 {ratio} [place] [employer].; [employer], [employer]. No Panel Informationon 06-21 AGE 50 {years} Normal [place] [employer].; [employer], [employer]. Laboratory - Chemistry and C hemistry - challengeon 07-02-2019 Albumin [Mass/Vol] 3.7 g/dL Normal 3.4 - 4.8 g/dL [facility].; [facility], [facility]. Albumin [Mass/Vol] 1.1 g/dL Normal 0.9 - 1.6 [facility].; [facility], [facility]. ALP [Catalytic activity/Vol] 67 U/L Normal 38 - 126 U/L [facility].; [facility], [facility]. ALT [Catalytic activity/Vol] 8 U/L Normal 8 - 35 U/L [facility].; [facility], [facility]. ALT No additional P-5'-P [Catalytic activity/Vol] 8 U/L Normal 8 - 35 U/L [facility].; [facility], [facility]. Anion gap [Moles/Vol] 11 mmol/L Normal 10 - 2 0 mmol/L [facility].; [facility], [facility]. AST [Catalytic activity/Vol] 13 U/L Normal 13 - 39 U/L [facility].; [facility], [facility]. Bilirubin [Mass/Vol] 0.3 mg/dL Normal 0.0 - 1 .5 mg/dL [facility].; [facility], [facility]. Calcium [Mass/Vol] 8.7 mg/dL Normal 8.6 - 10. 2 mg/dL [facility].; [facility], [facility]. Chloride [Moles/Vol] 107 mmol/L Normal 98 - 10 7 mmol/L [facility].; [facility], [facility]. Cholesterol [Mass/Vol] 154 mg/dL Normal 0 - 200 mg/dL [facility].; [facility], [facility]. Cholesterol in HDL [Mass or moles/Vol] 36 mg/dL Abnormal 40 - 60 mg/dL [facility].; [facility], [facility]. Cholesterol in LDL [Mass/Vol] 101 mg/dL Normal 0 - 129 mg/dL [facility], [facility].; [facility], [facility]. Cholesterol.total/[place] sterol in HDL [Mass ratio] 4.3 {ratio} Normal 0.0 - 5.0 [facility].; [facility], [facility]. CO2 [Moles/Vol] 25.6 mmol/L Normal 21.0 - 31.0 mmol/L [facility].; [facility], [facility] Comprehensive metabolic 2000 panel CMP with eGFR Normal [facility]; [facility], [facility] Creatinine [Mass/Vol] 0.8 mg/dL Normal 0.6 - 1.2 mg/dL [facility].; [facility], [facility]. GFR/1.73 sq M.predicted among blacks MDRD (S/P/Bld) [Vol rate/Area] mL/min/{1.73_m2} Normal 60 - 999 {ML/MINUTE} [facility], [facility].; [facility], [facility]. GFR/1.73 sq M.predicted MDRD (S/P/Bld) [Vol rate/Area] mL/min/{1.73_m2} Normal 60 - 999 {ML/MINUTE} [facility], [facility].; [facility], [facility]. Globulin (S) [Mass/Vol] 3.3 g/dL Normal 1.5 - 3.8 g/dL [facility], [facility].; [facility], [facility]. Glucose [Mass/Vol] 88 mg/dL Normal 74 - 106 mg/dL [facility], [facility].; [facility], [facility]. Lipid 1996 panel LIPID PROFILE Normal [facility]; [facility], [facility] Potassium [Moles/Vol] 4.2 mmol/L Normal 3.5 - 5.1 mmol/L [facility], [facility].; [facility], [facility] Protein [Mass/Vol] 7.0 g/dL Normal 6.4 - 8.3 g/dL [facility], [facility].; [facility], [facility]. Sodium [Moles/Vol] 139 mmol/L Normal 136 - 145 mmol/L [facility], [facility].; [facility], [facility]. Triglyceride [Mass/Vol] 83 mg/dL Normal 0 - 150 mg/d L [facility], [facility].; [facility], [facility]. Urea nitrogen [Mass/Vol] 12 mg/dL Normal 6 - 20 mg/dL [facility], [facility].; [facility], [facility] Urea nitrogen/Creatinine [Mass ratio] 15 {ratio} Normal 0 - 30 {ratio} [facility]; [employer]. No Panel Informationon 07-02 AGE 49 {years} Normal [place] [employer].; [employer]. Laboratory - Chemistry and C hemistry - challengeon 07-03-2018 Albumin [Mass/Vol] 3.9 g/dL Normal 3.4 - 4.8 g/dL [place] [employer].; [employer], [employer]. Albumin [Mass/Vol] 1.1 g/dL Normal 0.9 - 1.6 [place] [employer].; [employer]. ALP [Catalytic activity/Vol] 71 U/L Normal 38 - 126 U/L [place] [employer].; [employer], [employer]. ALT [Catalytic activity/Vol] 9 U/L Normal 8 - 35 U/L [place] [employer].; [employer], [employer]. ALT No additional P-5'-P [Catalytic activity/Vol] 9 U/L Normal 8 - 35 U/L [place] [employer].; [employer], [employer]. Anion gap [Moles/Vol] 11 mmol/L Normal 10 - 2 0 mmol/L [place] [employer].; [employer], [employer]. AST [Catalytic activity/Vol] 12 U/L Abnormal 13 - 39 U/L [place] [employer].; [employer], [employer]. Bilirubin [Mass/Vol] 0.4 mg/dL Normal 0.0 - 1 .5 mg/dL [place] [email or web address], [employer].; [employer], [employer]. Calcium [Mass/Vol] 9.0 mg/dL Normal 8.6 - 10. 2 mg/dL [place] [employer].; [employer], [employer]. Chloride [Moles/Vol] 108 mmol/L Abnormal 98 - 10 7 mmol/L [place] [employer].; [employer], [employer]. Cholesterol [Mass/Vol] 169 mg/dL Normal 0 - 200 mg/dL [place] [email or web address], [employer].; [employer] Cholesterol in HDL [Mass or moles/Vol] 37 mg/dL Abnormal 40 - 60 mg/dL [facility].; [employer] Cholesterol in LDL [Mass/Vol] 115 mg/dL Normal 0 - 129 mg/dL [facility].; [facility], [facility] Cholesterol.total/[place] sterol in HDL [Mass ratio] 4.6 {ratio} Normal 0.0 - 5.0 [facility]; [facility], [facility] CO2 [Moles/Vol] 23.1 mmol/L Normal 21.0 - 31.0 mmol/L [facility]; [facility], [facility] Comprehensive metabolic 2000 panel CMP with eGFR Normal [facility]; [facility], [facility] Creatinine [Mass/Vol] 0.8 mg/dL Normal 0.6 - 1.2 mg/dL [facility]; [facility], [facility]. GFR/1.73 sq M.predicted among blacks MDRD (S/P/Bld) [Vol rate/Area] mL/min/{1.73_m2} Normal 60 - 999 {ML/MINUTE} [facility].; [facility], [facility]. GFR/1.73 sq M.predicted MDRD (S/P/Bld) [Vol rate/Area] mL/min/{1.73_m2} Normal 60 - 999 {ML/MINUTE} [facility], [facility].; [facility], [facility]. Globulin (S) [Mass/Vol] 3.4 g/dL Normal 1.5 - 3.8 g/dL [facility], [facility].; [facility], [facility]. Glucose [Mass/Vol] 98 mg/dL Normal 74 - 106 mg/dL [facility].; [facility], [facility]. Lipid 1996 panel LIPID PROFILE Normal [facility]; [facility], [facility] Potassium [Moles/Vol] 3.9 mmol/L Normal 3.5 - 5.1 mmol/L [facility]; [facility], [facility] Protein [Mass/Vol] 7.3 g/dL Normal 6.4 - 8.3 g/dL [facility], [facility].; [facility], [facility]. Sodium [Moles/Vol] 138 mmol/L Normal 136 - 145 mmol/L [facility].; [facility], [facility]. Triglyceride [Mass/Vol] 84 mg/dL Normal 0 - 150 mg/d L [facility].; [place] [employer] Urea nitrogen [Mass/Vol] 12 mg/dL Normal 6 - 20 mg/dL [facility].; [place] [facility] Urea nitrogen/Creatinine [Mass ratio] 15 {ratio} Normal 0 - 30 {ratio} [facility].; [employer] No Panel Informationon 07-03 AGE 48 {years} Normal [facility]; [place] [employer] Laboratory - Chemistry and C hemistry - challengeon 07-02-2017 TSH Qn 2.15 m[IU]/L Normal 0.34 - 5.60 {uIU/ml} [facility].; [place] [employer] Laboratory - Chemistry and C hemistry - challengeon 06-25-2017 Albumin [Mass/Vol] 3.8 g/dL Normal 3.4 - 4.8 g/dL [facility].; [place] [employer]. Albumin [Mass/Vol] 1.2 g/dL Normal 0.9 - 1.6 [facility].; [employer]. ALP [Catalytic activity/Vol] 77 U/L Normal 38 - 126 U/L [facility].; [place] [employer]. ALT [Catalytic activity/Vol] 11 U/L Normal 8 - 35 U/L [place] [facility].; [place] [employer]. ALT No additional P-5'-P [Catalytic activity/Vol] 11 U/L Normal 8 - 35 U/L [facility].; [employer]. Anion gap [Moles/Vol] 13 mmol/L Normal 10 - 2 0 mmol/L [place] [facility].; [place] [employer]. AST [Catalytic activity/Vol] 15 U/L Normal 13 - 39 U/L [facility].; [place] [employer]. Bilirubin [Mass/Vol] 0.2 mg/dL Normal 0.0 - 1 .5 mg/dL [facility].; [employer]. Calcium [Mass/Vol] 8.8 mg/dL Normal 8.6 - 10. 2 mg/dL [facility].; [facility], [facility]. Chloride [Moles/Vol] 104 mmol/L Normal 98 - 10 7 mmol/L [facility]; [facility], [facility] Cholesterol [Mass/Vol] 195 mg/dL Normal 0 - 200 mg/dL [facility].; [facility], [facility] Cholesterol in HDL [Mass or moles/Vol] 36 mg/dL Abnormal 40 - 60 mg/dL [facility].; [facility], [facility] Cholesterol in LDL [Mass/Vol] 131 mg/dL Abnormal 0 - 129 mg/dL [facility].; [facility], [facility] Cholesterol.total/[place] sterol in HDL [Mass ratio] 5.4 {ratio} Abnormal 0.0 - 5.0 [facility]; [facility], [facility] CO2 [Moles/Vol] 25.2 mmol/L Normal 21.0 - 31.0 mmol/L [facility].; [facility], [facility] Comprehensive metabolic 2000 panel CMP with eGFR Normal [facility]; [facility], [facility] Creatinine [Mass/Vol] 0.8 mg/dL Normal 0.6 - 1.2 mg/dL [facility].; [facility], [facility]. GFR/1.73 sq M.predicted among blacks MDRD (S/P/Bld) [Vol rate/Area] mL/min/{1.73_m2} Normal 60 - 999 {ML/MINUTE} [facility], [facility].; [facility], [facility]. GFR/1.73 sq M.predicted MDRD (S/P/Bld) [Vol rate/Area] mL/min/{1.73_m2} Normal 60 - 999 {ML/MINUTE} [facility], [facility].; [facility], [facility]. Globulin (S) [Mass/Vol] 3.3 g/dL Normal 1.5 - 3.8 g/dL [facility], [facility].; [facility], [facility]. Glucose [Mass/Vol] 90 mg/dL Normal 74 - 106 mg/dL [facility], [facility].; [facility], [facility] Lipid 1996 panel LIPID PROFILE Normal [facility]; [facility] Potassium [Moles/Vol] 4.1 mmol/L Normal 3.5 - 5.1 mmol/L [facility]; [facility] Protein [Mass/Vol] 7.1 g/dL Normal 6.4 - 8.3 g/dL [facility]; [facility] Sodium [Moles/Vol] 138 mmol/L Normal 136 - 145 mmol/L [facility]; [facility] Triglyceride [Mass/Vol] 141 mg/dL Normal 0 - 150 mg/d L [facility]; [facility] Urea nitrogen [Mass/Vol] 13 mg/dL Normal 6 - 20 mg/dL [facility]; [facility] Urea nitrogen/Creatinine [Mass ratio] 16 {ratio} Normal 0 - 30 {ratio} [facility]; [facility] No Panel Informationon 06-25 AGE 47 {years} Normal [facility]; [facility] Laboratory - Chemistry and C hemistry - challengeon 06-19-2016 Albumin [Mass/Vol] 3.9 g/dL Normal 3.4 - 4.8 g/dL [facility]; [facility] Albumin [Mass/Vol] 1.4 g/dL Normal 0.9 - 1.6 [facility]; [facility] ALP [Catalytic activity/Vol] 72 U/L Normal 38 - 126 U/L [facility]; [facility]. ALT [Catalytic activity/Vol] 17 U/L Normal 8 - 35 U/L [facility].; [facility] ALT No additional P-5'-P [Catalytic activity/Vol] 17 U/L Normal 8 - 35 U/L [facility].; [place] [facility], [facility] Anion gap [Moles/Vol] 8 mmol/L Abnormal 10 - 2 0 mmol/L [facility].; [facility] AST [Catalytic activity/Vol] 20 U/L Normal 13 - 39 U/L [facility].; [facility], [facility]. Bilirubin [Mass/Vol] 0.3 mg/dL Normal 0.0 - 1 .5 mg/dL [facility].; [facility], [facility]. Calcium [Mass/Vol] 8.7 mg/dL Normal 8.6 - 10. 2 mg/dL [facility], [facility].; [facility], [facility]. Chloride [Moles/Vol] 107 mmol/L Normal 98 - 10 7 mmol/L [facility].; [facility], [facility]. Cholesterol [Mass/Vol] 175 mg/dL Normal 0 - 200 mg/dL [facility], [facility].; [facility], [facility]. Cholesterol in HDL [Mass or moles/Vol] 44 mg/dL Normal 40 - 60 mg/dL [facility].; [facility], [facility] Cholesterol in LDL [Mass/Vol] 115 mg/dL Normal 0 - 129 mg/dL [facility], [facility].; [facility], [facility]. Cholesterol.total/[place] sterol in HDL [Mass ratio] 4.0 {ratio} Normal 0.0 - 5.0 [facility].; [facility], [facility]. CO2 [Moles/Vol] 24.0 mmol/L Normal 21.0 - 31.0 mmol/L [facility].; [facility], [facility]. Comprehensive metabolic 2000 panel CMP with eGFR Normal [facility].; [facility], [facility] Creatinine [Mass/Vol] 0.8 mg/dL Normal 0.6 - 1.2 mg/dL [facility], [facility].; [facility], [facility]. GFR/1.73 sq M.predicted among blacks MDRD (S/P/Bld) [Vol rate/Area] mL/min/{1.73_m2} Normal 60 - 999 {ML/MINUTE} [facility], [facility].; [facility], [facility]. GFR/1.73 sq M.predicted MDRD (S/P/Bld) [Vol rate/Area] mL/min/{1.73_m2} Normal 60 - 999 {ML/MINUTE} [facility], [facility].; [facility], [facility]. Globulin (S) [Mass/Vol] 2.8 g/dL Normal 1.5 - 3.8 g/dL [facility]; [facility] Glucose [Mass/Vol] 84 mg/dL Normal 74 - 106 mg/dL [facility].; [facility] Lipid 1996 panel LIPID PROFILE Normal [facility]; [facility] Potassium [Moles/Vol] 4.3 mmol/L Normal 3.5 - 5.1 mmol/L [facility]; [facility] Protein [Mass/Vol] 6.7 g/dL Normal 6.4 - 8.3 g/dL [facility]; [facility] Sodium [Moles/Vol] 135 mmol/L Abnormal 136 - 145 mmol/L [facility]; [facility] Triglyceride [Mass/Vol] 82 mg/dL Normal 0 - 150 mg/d L [facility]; [place] [facility] Urea nitrogen [Mass/Vol] 11 mg/dL Normal 6 - 20 mg/dL [facility]; [place] [employer] [facility] Urea nitrogen/Creatinine [Mass ratio] 14 {ratio} Normal 0 - 30 {ratio} [facility]; [place] [employer] [facility] No Panel Informationon 06-19 AGE 46 {years} Normal [facility]; [place] [employer] [facility] No Panel Informationon 07-12 PANEL NAME THIN PREP (QU) PAP WITH HPV REFLEX Normal [facility]; [place] [facility] Laboratory - Chemistry and C hemistry - challengeon 06-28-2015 Albumin [Mass/Vol] 4.0 g/dL Normal 3.4 - 4.8 g/dL [facility]; [facility] Albumin [Mass/Vol] 1.4 g/dL Normal 0.9 - 1.6 [facility]; [place] [facility] ALP [Catalytic activity/Vol] 67 U/L Normal 38 - 126 U/L [facility]; [facility] ALT [Catalytic activity/Vol] 10 U/L Normal 8 - 35 U/L [facility]. ALT No additional P-5'-P [Catalytic activity/Vol] 10 U/L Normal 8 - 35 U/L [facility].; [facility], [facility]. Anion gap [Moles/Vol] 7 mmol/L Abnormal 10 - 2 0 mmol/L [facility].; [facility]. AST [Catalytic activity/Vol] 13 U/L Normal 13 - 39 U/L [facility].; [facility]. Bilirubin [Mass/Vol] 0.4 mg/dL Normal 0.0 - 1 .5 mg/dL [facility]; [facility]. Calcium [Mass/Vol] 9.2 mg/dL Normal 8.6 - 10. 2 mg/dL [facility]; [facility] Chloride [Moles/Vol] 106 mmol/L Normal 98 - 10 7 mmol/L [facility]; [facility], [facility]. Cholesterol [Mass/Vol] 154 mg/dL Normal 0 - 200 mg/dL [facility].; [facility], [facility]. Cholesterol in HDL [Mass or moles/Vol] 38 mg/dL Abnormal 40 - 60 mg/dL [facility]; [facility], [facility]. Cholesterol in LDL [Mass/Vol] 102 mg/dL Normal 0 - 129 mg/dL [facility].; [facility], [facility] Cholesterol.total/[place] sterol in HDL [Mass ratio] 4.1 {ratio} Normal 0.0 - 5.0 [facility]; [facility] CO2 [Moles/Vol] 27.0 mmol/L Normal 13.0 - 29.0 mmol/L [facility]; [facility], [facility]. Comprehensive metabolic 2000 panel CMP with eGFR Normal [facility]; [facility], [facility] Creatinine [Mass/Vol] 0.8 mg/dL Normal 0.6 - 1.2 mg/dL [facility]; [facility], [facility]. GFR/1.73 sq M.predicted among blacks MDRD (S/P/Bld) [Vol rate/Area] mL/min/{1.73_m2} Normal 60 - 999 {ML/MINUTE} [facility].; [employer] GFR/1.73 sq M.predicted MDRD (S/P/Bld) [Vol rate/Area] mL/min/{1.73_m2} Normal 60 - 999 {ML/MINUTE} [facility] [employer] Globulin (S) [Mass/Vol] 2.8 g/dL Normal 1.5 - 3.8 g/dL [facility], [facility].; [employer], [employer]. Glucose [Mass/Vol] 86 mg/dL Normal 74 - 106 mg/dL [place] [facility].; [employer], [employer]. Lipid 1996 panel LIPID PROFILE Normal [facility], [facility].; [employer], [employer]. Potassium [Moles/Vol] 4.0 mmol/L Normal 3.5 - 5.1 mmol/L [facility].; [employer], [employer]. Protein [Mass/Vol] 6.8 g/dL Normal 6.4 - 8.3 g/dL [place] [facility].; [employer], [employer]. Sodium [Moles/Vol] 136 mmol/L Normal 136 - 145 mmol/L [place] [facility].; [employer], [employer]. Triglyceride [Mass/Vol] 69 mg/dL Normal 0 - 150 mg/d L [place] [facility].; [employer], [employer]. Urea nitrogen [Mass/Vol] 11 mg/dL Normal 6 - 20 mg/dL [place] [employer] [facility].; [employer] Urea nitrogen/Creatinine [Mass ratio] 14 {ratio} Normal 0 - 30 {ratio} [place] [employer].; [employer], [employer]. No Panel Informationon 06-28 AGE 45 {years} Normal [place] [employer], [employer]. Vital Signs Date Time Vital Sign Value Performing Clinician Facility 07-07-2024 08:28-0500 Body height 165.1 cm [facility] Work Phone: [place] [employer]. 07-07-2024 08:28-0500 Body mass index (BMI) [Ratio] 37.61 kg/m2 Miri Hutchinson INFORMATION SYSTEMS AUDIT MANAGER Work Phone: [employer].; [employer]. 07-07-2024 08:28-0500 Body surface area Derived from formula 2.08 m2 Miri Evangelina INFORMATION SYSTEMS AUDIT MANAGER Work Phone: [employer].; [employer]. 07-07-2024 08:28-0500 Body weight 102.51 kg Miri Hutchinson INFORMATION SYSTEMS AUDIT MANAGER Work Phone: [employer].; [employer]. 07-07-2024 08:28-0500 Diastolic blood pressure 76 mm[Hg] Miri Hutchinson INFORMATION SYSTEMS AUDIT MANAGER Work Phone: [employer].; [employer]. Comment on above: Patient Position: Sitting; Cuff Location : Left Arm; Cuff Size: Large 07-07-2024 08:28-0500 Heart rate 87 /min Miri Hutchinson LPN Work Phone: [employer]; [employer]. Comment on above: Pattern: Regular 07-07-2024 08:28-0500 Systolic blood pressure 119 mm[Hg] Miri Hutchinson INFORMATION SYSTEMS AUDIT MANAGER Work Phone: [employer]; [employer]. Comment on above: Patient Position: Sitting; Cuff Location : Left Arm; Cuff Size: Large 05-17-2024 11:05-0400 Body height 165.1 cm Yuki Lieberman [facility] [employer]. 05-17-2024 11:05-0400 Body mass index (BMI) [Ratio] 37.44 kg/m2 Kamlesh Cruz MD Work Phone: [employer].; [employer]. 05-17-2024 11:05-0400 Body surface area Derived from formula 2.08 m2 Kamlesh Cruz MD [facility]: [facility].; [employer]. 05-17-2024 11:05-0400 Body weight 102.06 kg Kamlesh Cruz MD Work Phone: [facility].; [email or web address] 05-17-2024 11:05-0400 Heart rate 59 /min Kamlesh Cruz MD Work Phone: [facility].; [employer]. Comment on above: Pattern: Regular 02-19-2024 08:59-0400 Body height 165.1 cm Deb Glasgow LPN [facility], [facility].; [place] [email or web address], [employer]. 02-19-2024 08:59-0400 Body mass index (BMI) [Ratio] 36.78 kg/m2 Deb Glasgow LPN [facility], [facility].; [place] [email or web address] 02-19-2024 08:59-0400 Body surface area Derived from formula 2.06 m2 Deb Glasgow LPN [facility], [facility].; [employer], [employer]. 02-19-2024 08:59-0400 Body temperature 97.3 [degF] Deb Glasgow LPN [facility], [facility].; [employer]. Comment on above: Method: Tympanic 02-19-2024 08:59-0400 Body weight 100.25 kg Deb Glasgow LPN [facility], [facility].; [employer] 02-19-2024 08:59-0400 Diastolic blood pressure 78 mm[Hg] Deb Glasgow LPN [facility], [facility].; [employer]. Comment on above: Patient Position: Sitting; Cuff Location : Left Arm; Cuff Size: Standard 02-19-2024 08:59-0400 Heart rate 62 /min Deb Glasgow LPN [facility], [facility].; [employer]. Comment on above: Pattern: Regular 02-19-2024 08:59-0400 Systolic blood pressure 130 mm[Hg] Deb Glasgow LPN [facility], [facility].; [employer]. Comment on above: Patient Position: Sitting; Cuff Location : Left Arm; Cuff Size: Standard 10-25-2023 14:25-0400 Body height 165.1 cm Mireille Lopez [facility].; [facility], [facility]. 06-24-2023 14:25-0400 Body mass index (BMI) [Ratio] 37.11 kg/m2 Mireille Bedoyaach [facility], [facility].; [place] [employer] [facility], [facility] 06-24-2023 14:25-0400 Body surface area Derived from formula 2.07 m2 Mireille Krishnan Jessica [facility], [facility].; [place] [employer] [facility], [facility]. 06-24-2023 14:25-0400 Body weight 101.15 kg Mireille Lopez [facility], [facility].; [place] [employer] [facility], [facility]. 06-24-2023 14:25-0400 Diastolic blood pressure 70 mm[Hg] Mireille Krishnan Jessica [facility], [facility].; [place] [email or web address], [employer]. Comment on above: Patient Position: Sitting; Cuff Location : Left Arm; Cuff Size: Standard 06-24-2023 14:25-0400 Heart rate 54 /min Mireille Lopez [facility], [facility].; [place] [employer] [facility], [employer]. Comment on above: Pattern: Regular 06-24-2023 14:25-0400 Systolic blood pressure 122 mm[Hg] Mireille Lopez [facility].; [place] [email or web address], [employer]. Comment on above: Patient Position: Sitting; Cuff Location : Left Arm; Cuff Size: Standard 08-04-2022 08:50-0500 Body height 165.1 cm Deb Cee MA [facility], [facility].; [place] [employer] [facility]. 08-04-2022 08:50-0500 Body mass index (BMI) [Ratio] 38.61 kg/m2 Deb Cee MA [facility], [facility].; [place] [employer] [facility], [facility]. 08-04-2022 08:50-0500 Body surface area Derived from formula 2.11 m2 Deb Cee MA [facility], [facility].; [employer]. 08-04-2022 08:50-0500 Body weight 105.24 kg Deb Cee MA [facility].; [employer]. 08-04-2022 08:50-0500 Diastolic blood pressure 73 mm[Hg] Deb Cee MA [place] [employer] [facility] Inc.; [employer]. Comment on above: Patient Position: Sitting; Cuff Location : Left Arm; Cuff Size: Standard 08-04-2022 08:50-0500 Heart rate 66 /min Deb Cee MA [facility].; [employer]. Comment on above: Pattern: Regular 08-04-2022 08:50-0500 Systolic blood pressure 117 mm[Hg] Deb Cee MA [place] [employer] [facility] Inc.; [employer]. Comment on above: Patient Position: Sitting; Cuff Location : Left Arm; Cuff Size: Standard 11-18-2021 13:55-0400 Body height 165.1 cm Mireille Lopez LPN [facility].; [employer] 11-18-2021 13:55-0400 Body mass index (BMI) [Ratio] 37.44 kg/m2 Mireille Lopez INFORMATION SYSTEMS AUDIT MANAGER [facility].; [employer]. 11-18-2021 13:55-0400 Body surface area Derived from formula 2.08 m2 Mireille Lopez INFORMATION SYSTEMS AUDIT MANAGER [place] [employer] [facility], [facility].; [employer] 11-18-2021 13:55-0400 Body weight 102.06 kg Mireille Lopez INFORMATION SYSTEMS AUDIT MANAGER [place] [employer] [facility], [facility].; [employer] 11-18-2021 13:55-0400 Diastolic blood pressure 82 mm[Hg] Mireille Lopez LPN [place] [employer] [facility] Inc.; [employer]. Comment on above: Patient Position: Sitting; Cuff Location : Left Arm; Cuff Size: Standard 11-18-2021 13:55-0400 Heart rate 62 /min Mireille Lopez LPN [place] [employer] [facility], [facility].; [employer] Comment on above: Pattern: Regular 11-18-2021 13:55-0400 Systolic blood pressure 130 mm[Hg] Mireille Lopez LPN [place] [employer] [facility].; [employer]. Comment on above: Patient Position: Sitting; Cuff Location : Left Arm; Cuff Size: Standard 09-23-2021 16:25-0500 Body height 165.1 cm Yuki Lieberman [facility], [facility].; [facility], [employer]. 09-23-2021 16:25-0500 Body mass index (BMI) [Ratio] 36.94 kg/m2 Mickie Mio [facility], [facility].; [place] [employer] [facility], [employer]. 09-23-2021 16:25-0500 Body surface area Derived from formula 2.07 m2 Mickie Mio [facility], [facility].; [place] [employer] [facility], [employer]. 09-23-2021 16:25-0500 Body temperature 99 [degF] [facility] Mio [facility], [facility].; [employer]. Comment on above: Method: Tympanic 09-23-2021 16:25-0500 Body weight 100.7 kg Mickie Mio [facility], [facility].; [place] [email or web address] 09-23-2021 16:25-0500 Inhaled oxygen concentration 20 % [facility] Mio [facility], [facility].; [employer]. Comment on above: Room air 09-23-2021 16:25-0500 Inhaled oxygen concentration 21 % [facility] Mio [facility].; [place]. Comment on above: Room air 09-23-2021 16:25-0500 SaO2% (BldA) [Mass fraction] 96 % Yuki Lieberman [facility], [facility].; [place] [employer] [facility]. 07-17-2021 14:02-0500 Body height 165.1 cm Lauro Angeles PA-C Work Phone: [facility].; [place] [employer]. 07-17-2021 14:02-0500 Body mass index (BMI) [Ratio] 35.94 kg/m2 Lauro Angeles PA-C Work Phone: [facility].; [employer]. 07-17-2021 14:02-0500 Body surface area Derived from formula 2.04 m2 Lauro Carpenter Angeles PA-C Work Phone: [employer]; [employer]. 07-17-2021 14:02-0500 Body weight 97.98 kg Lauro Carpenter Angeles PA-C Work Phone: [employer]; [employer]. 07-17-2021 14:02-0500 Diastolic blood pressure 77 mm[Hg] Lauro Carpenter Angeles PA-C Work Phone: [employer]; [employer]. Comment on above: Patient Position: Sitting; Cuff Location : Left Arm; Cuff Size: Standard 07-17-2021 14:02-0500 Heart rate 58 /min Lauro Carpenter Angeles PA-C Work Phone: [employer]; [employer]. Comment on above: Pattern: Regular 07-17-2021 14:02-0500 Inhaled oxygen concentration 20 % Lauro Carpenter Angeles PA-C Work Phone: [employer]; [employer]. Comment on above: Room air 07-17-2021 14:02-0500 Inhaled oxygen concentration 21 % Lauro Pauline Angeles PA-C Work Phone: [employer]; [employer]. Comment on above: Room air 07-17-2021 14:02-0500 SaO2% (BldA) [Mass fraction] 98 % Lauro Carpenter Angeles PA-C Work Phone: [employer]; [employer]. 07-17-2021 14:02-0500 Systolic blood pressure 121 mm[Hg] Lauro Pauline Angeles PA-C Work Phone: [employer]; [employer]. Comment on above: Patient Position: Sitting; Cuff Location : Left Arm; Cuff Size: Standard 11-16-2020 14:43-0400 Body height 165.1 cm Mireille Delabach [facility], [facility].; [facility]. 11-16-2020 14:43-0400 Body mass index (BMI) [Ratio] 35.61 kg/m2 Mireille Delabach [facility], [facility].; [facility]. 11-16-2020 14:43-0400 Body surface area Derived from formula 2.04 m2 Mireille Krishnan Jessica [facility].; [facility]. 11-16-2020 14:43-0400 Body temperature 98.6 [degF] Mireille Krishnan Jessica [facility].; [place] [employer] [facility]. Comment on above: Method: Tympanic 11-16-2020 14:43-0400 Body weight 97.07 kg Mireille Delabach [facility].; [facility]. 11-16-2020 14:43-0400 Diastolic blood pressure 77 mm[Hg] Mireille Delabach [facility].; [place] [employer] [facility]. Comment on above: Patient Position: Sitting; Cuff Location : Left Arm; Cuff Size: Standard 11-16-2020 14:43-0400 Heart rate 92 /min Mireille Delabach [facility].; [place] [employer] [facility]. Comment on above: Pattern: Regular 11-16-2020 14:43-0400 Systolic blood pressure 125 mm[Hg] Mireille Krishnan Jessica [facility] [place] [employer] [facility]. Comment on above: Patient Position: Sitting; Cuff Location : Left Arm; Cuff Size: Standard 07-19-2020 10:01-0500 Body height 165.1 cm Lauro Angeles PA-C Work Phone: [facility].; [place] [employer] [facility]. 07-19-2020 10:01-0500 Body mass index (BMI) [Ratio] 35.28 kg/m2 Lauro Angeles PA-C Work Phone: [place] [employer] [facility].; [employer]. 07-19-2020 10:01-0500 Body surface area Derived from formula 2.03 m2 Lauro Carpenter Angeles PA-C Work Phone: [employer].; [employer]. 07-19-2020 10:01-0500 Body weight 96.16 kg Lauro Carpenter Angeles PA-C Work Phone: [employer].; [employer]. 07-19-2020 10:01-0500 Diastolic blood pressure 72 mm[Hg] Lauro Carpenter Angeles PA-C Work Phone: [employer].; [employer]. Comment on above: Patient Position: Sitting; Cuff Location : Left Arm; Cuff Size: Standard 07-19-2020 10:01-0500 Heart rate 82 /min Lauro De Leoner PA-C Work Phone: [employer]; [employer]. Comment on above: Pattern: Regular 07-19-2020 10:01-0500 Systolic blood pressure 120 mm[Hg] Lauro Carpenter Angeles PA-C Work Phone: [employer]; [employer]. Comment on above: Patient Position: Sitting; Cuff Location : Left Arm; Cuff Size: Standard 07-08-2019 11:20-0500 Body height 165.1 cm Lauro Carpenter Angeles PA-C Work Phone: [employer]; [employer]. 07-08-2019 11:20-0500 Body mass index (BMI) [Ratio] 33.28 kg/m2 Lauro Carpenter Angeles PA-C Work Phone: [employer].; [employer]. 07-08-2019 11:20-0500 Body surface area Derived from formula 1.98 m2 Lauro Pauline Angeles PA-C Work Phone: [employer].; [employer]. 07-08-2019 11:20-0500 Body weight 90.72 kg Lauro Pauline Angeles PA-C Work Phone: [employer].; [employer]. 07-08-2019 11:20-0500 Diastolic blood pressure 76 mm[Hg] Lauro Pauline LIMA-C Work Phone: [employer].; [employer]. Comment on above: Patient Position: Sitting; Cuff Location : Left Arm; Cuff Size: Standard 07-08-2019 11:20-0500 Heart rate 60 /min Lauro Pauline LIMA-C Work Phone: [employer]; [employer]. Comment on above: Pattern: Regular 07-08-2019 11:20-0500 Systolic blood pressure 111 mm[Hg] Lauro Pauline LIMA-C Work Phone: [employer]; [employer]. Comment on above: Patient Position: Sitting; Cuff Location : Left Arm; Cuff Size: Standard 03-30-2019 14:34-0400 Body height 165.1 cm Navya Shaw LPN [employer].; [employer]. 03-30-2019 14:34-0400 Body mass index (BMI) [Ratio] 33.95 kg/m2 Navya Shaw LPKayenta Health CenterTherma-Wave.; [employer]. 03-30-2019 14:34-0400 Body surface area Derived from formula 1.99 m2 Navya Shaw LPN [employer]. 03-30-2019 14:34-0400 Body temperature 98.2 [degF] Navya Shaw LPKayenta Health CenterTherma-Wave.; [employer]. Comment on above: Method: Tympanic 03-30-2019 14:34-0400 Body weight 92.53 kg Navya Shaw LPN [employer].; [employer] 03-30-2019 14:34-0400 Diastolic blood pressure 76 mm[Hg] Navya Shaw LPN [employer].; [employer]. Comment on above: Patient Position: Sitting; Cuff Location : Left Arm; Cuff Size: Standard 03-30-2019 14:34-0400 Heart rate 66 /min Navya Shaw LPN [place] [employer] [facility], [facility].; [employer]. Comment on above: Pattern: Regular 03-30-2019 14:34-0400 Inhaled oxygen concentration 20 % Navya Southjavier INFORMATION SYSTEMS AUDIT MANAGER [facility].; [employer] Comment on above: Room air 03-30-2019 14:34-0400 Inhaled oxygen concentration 21 % Navyabassem Shaw INFORMATION SYSTEMS AUDIT MANAGER [place] [email or web address]. Comment on above: Room air 03-30-2019 14:34-0400 SaO2% (BldA) [Mass fraction] 98 % Navya Southjavier [facility] [employer] [facility], [facility].; [employer]. 03-30-2019 14:34-0400 Systolic blood pressure 120 mm[Hg] [facility] [email or web address], [employer].; [employer]. Comment on above: Patient Position: Sitting; Cuff Location : Left Arm; Cuff Size: Standard 07-07-2018 10:05-0500 Body height 165.1 cm Navya Shaw LPN [place] [email or web address] 07-07-2018 10:05-0500 Body mass index (BMI) [Ratio] 35.79 kg/m2 Navya Shaw [facility] [email or web address] 07-07-2018 10:05-0500 Body surface area Derived from formula 2.04 m2 Navya Shaw INFORMATION SYSTEMS AUDIT MANAGER [employer]. 07-07-2018 10:05-0500 Body weight 97.55 kg Navya Southjavier [facility] [email or web address]. 07-07-2018 10:05-0500 Diastolic blood pressure 80 mm[Hg] Navya Shaw [facility] [email or web address]. Comment on above: Patient Position: Sitting; Cuff Location : Left Arm; Cuff Size: Standard 07-07-2018 10:05-0500 Heart rate 67 /min Navya Shaw LPN [place] [employer] [facility], [facility].; [employer], [employer]. Comment on above: Pattern: Regular 07-07-2018 10:05-0500 Systolic blood pressure 128 mm[Hg] Navya Shaw LPN [employer] Comment on above: Patient Position: Sitting; Cuff Location : Left Arm; Cuff Size: Standard 07-02-2017 09:33-0400 Body height 166.62 cm Navya Shaw LPN [place] [employer] [facility], [facility].; [employer], [employer]. 07-02-2017 09:33-0400 Body mass index (BMI) [Ratio] 34.8 kg/m2 Navya Shaw LPN [place] [email or web address] 07-02-2017 09:33-0400 Body surface area Derived from formula 2.05 m2 Navya Shaw LPN [employer] 07-02-2017 09:33-0400 Body weight 96.62 kg Navya Shaw LPN [employer] 06-24-2016 15:09-0400 Body height 165.1 cm Chelo Pal RN [place] [email or web address] 06-24-2016 15:09-0400 Body mass index (BMI) [Ratio] 34.11 kg/m2 Chelo Pal RN [place] [email or web address] 06-24-2016 15:09-0400 Body surface area Derived from formula 2 m2 Chelo Pal RN [employer], [employer]. 06-24-2016 15:09-0400 Body weight 92.99 kg Chelo Pal RN [place] [email or web address], [employer]. 06-24-2016 15:09-0400 Diastolic blood pressure 74 mm[Hg] Chelo Pal RN [employer], [employer]. Comment on above: Patient Position: Sitting; Cuff Location : Left Arm; Cuff Size: Standard 06-24-2016 15:09-0400 Heart rate 82 /min Chelo Pal RN [facility], [facility].; [place] [email or web address], [employer]. Comment on above: Pattern: Regular 06-24-2016 15:09-0400 Systolic blood pressure 113 mm[Hg] Chelo Pal RN [facility], [facility].; [place] [email or web address], [employer]. Comment on above: Patient Position: Sitting; Cuff Location : Left Arm; Cuff Size: Standard 07-12-2015 11:09-0500 Body height 165.1 cm Lynsey K Mutersbaugh INFORMATION SYSTEMS AUDIT MANAGER [facility].; [employer], [employer]. 07-12-2015 11:09-0500 Body mass index (BMI) [Ratio] 32.62 kg/m2 Lynsey K Mutersbaugh INFORMATION SYSTEMS AUDIT MANAGER [facility].; [employer], [employer]. 07-12-2015 11:09-0500 Body surface area Derived from formula 1.96 m2 Lynsey K Mutersbaugh INFORMATION SYSTEMS AUDIT MANAGER [facility], [facility].; [employer], [employer]. 07-12-2015 11:09-0500 Body weight 88.91 kg Lynsey K Mutersbaugh INFORMATION SYSTEMS AUDIT MANAGER [facility].; [employer], [employer]. 07-12-2015 11:09-0500 Diastolic blood pressure 74 mm[Hg] Lynsey K Mutersbaugh INFORMATION SYSTEMS AUDIT MANAGER [place] [facility] [facility], [facility].; [employer], [employer]. Comment on above: Patient Position: Sitting; Cuff Location : Left Arm; Cuff Size: Standard 07-12-2015 11:09-0500 Heart rate 85 /min Lynsey K Mutersbaugh INFORMATION SYSTEMS AUDIT MANAGER [place] [employer] [facility], [employer].; [employer], [employer]. 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, [facility].; [employer], [employer]. Comment on above: Patient Position: Sitting; Cuff Location : Left Arm; Cuff Size: Standard 01-11-2015 13:27-0400 Body height 166.62 cm Navya Colin MONTEJO [facility], [facility].; [employer] 01-11-2015 13:27-0400 Body mass index (BMI) [Ratio] 31.43 kg/m2 Navya Shaw LPAdventhealth Del[facility], [facility].; [place] [email or web address] 01-11-2015 13:27-0400 Body surface area Derived from formula 1.96 m2 Navya Shaw LPN [facility].; [employer] 01-11-2015 13:27-0400 Body weight 87.26 kg aNvya Shaw [facility]Bayridge [facility] [facility], [facility].; [employer], [employer]. 01-11-2015 13:27-0400 Diastolic blood pressure 77 mm[Hg] Navya Shaw LPN [facility], [facility].; [employer], [employer]. Comment on above: Patient Position: Sitting; Cuff Location : Left Arm; Cuff Size: Standard 01-11-2015 13:27-0400 Heart rate 76 /min Navya Shaw LPN [facility], [facility].; [employer]. Comment on above: Pattern: Regular 01-11-2015 13:27-0400 Systolic blood pressure 122 mm[Hg] Navya Colin MONTEJO [place] [employer] [facility], [facility].; [employer] Comment on above: Patient Position: Sitting; Cuff Location : Left Arm; Cuff Size: Standard Encounters Encounter Date Encounter Type Care Provider Facility Start: 08-04-2024 End: 08-04-2024 ambulatory Lauro LIMA Facility:[facility] Start: 07-07-2024 End: 07-06-2024 Historical Summary Lauro Angeles PA-C Work Phone: [employer] [facility] [employer] Start: 07-07-2024 End: 07-07-2024 Patient encounter procedure Lauro Angeles PA-C Work Phone: [employer] [facility], [employer].; [employer] Start: 07-07-2024 End: 07-07-2024 Periodic preventive med est patient 40-64yrs Lauro Angeles PA-C Work Phone: [employer] Start: 07-04-2024 End: 07-04-2024 ambulatory Lauro LIMA Facility:[facility] Start: 06-30-2024 End: 07-04-2024 Orders Lauro De Leoner PA-C Work Phone: [employer]. Start: 05-18-2024 End: 05-18-2024 ambulatory [facility] Facility:[facility] Start: 05-17-2024 End: 05-17-2024 Office outpatient visit 15 minutes Lauro De Leoner PA-C Work Phone: [employer] Start: 05-17-2024 Review Lauro De Leoner PA-C Work Phone: [employer] Start: 02-23-2024 End: 02-23-2024 ambulatory Lauro LIMA Facility:[facility] Start: 02-19-2024 End: 02-19-2024 Office outpatient visit 15 minutes Lauro De Leoner PA-C Work Phone: [employer] Start: 08-25-2023 End: 08-25-2023 Historical Summary Lauro De Leoner PA-C Work Phone: [employer] Start: 06-24-2023 End: 06-24-2023 Patient encounter procedure Lauro De Leoner PA-C Work Phone: [employer].; [employer]. Start: 06-24-2023 End: 06-24-2023 Periodic preventive med est patient 40-64yrs Lauro De Leoner PA-C Work Phone: [employer]. Start: 06-18-2023 End: 06-18-2023 ambulatory [facility] Work Phone: Start: 06-18-2023 End: 06-18-2023 Patient encounter procedure [facility] [facility] Start: 06-01-2023 End: 06-03-2023 Orders Lauro De Leoner PA-C Work Phone: [employer] Start: 08-04-2022 End: 08-04-2022 Office outpatient visit 25 minutes Lauro Angeles PA-C Work Phone: [employer] Start: 07-30-2022 End: 07-30-2022 ambulatory [facility] Work Phone: Start: 07-30-2022 End: 07-30-2022 Patient encounter procedure [facility] Start: 07-28-2022 End: 07-28-2022 ambulatory [facility] Work Phone: Start: 07-28-2022 End: 07-28-2022 Patient encounter procedure [facility] Start: 07-18-2022 End: 07-18-2022 Orders Lauro Angeles PA-C Work Phone: [employer] Start: 04-24-2022 [facility] Start: 04-24-2022 [facility] Start: 11-18-2021 End: 11-18-2021 ambulatory [place] Pauline [facility] Start: 11-18-2021 End: 11-18-2021 Office outpatient visit 15 minutes Lauro Angeles PA-C Work Phone: [employer] Start: 09-23-2021 End: 09-23-2021 Office outpatient visit 15 minutes Lauro Angeles PA-C Work Phone: [employer] Start: 07-18-2021 End: 07-18-2021 ambulatory LAURO Carpenter [facility]GELES [facility] Start: 07-17-2021 End: 07-17-2021 Patient encounter procedure Lauro Angeles PA-C Work Phone: [employer] Start: 06-15-2021 End: 06-15-2021 ambulatory [place] Pauline [facility] Start: 06-10-2021 End: 06-10-2021 Orders Lauro Angeles PA-C Work Phone: [employer] Start: 11-16-2020 End: 11-16-2020 Office outpatient visit 15 minutes Lauro Angeles PA-C Work Phone: [employer]. Start: 08-13-2020 End: 08-13-2020 Historical Summary Lauro De Leoner PA-C Work Phone: [employer]. Start: 07-19-2020 End: 07-19-2020 Patient encounter status Lauro Angeles PA-C Work Phone: [employer] Start: 07-19-2020 End: 07-19-2020 Periodic preventive med est patient 40-64yrs Lauro Angeles PA-C Work Phone: [employer]. Start: 05-31-2020 End: 05-31-2020 Orders Lauro Angeles PA-C Work Phone: [employer]. Start: 07-08-2019 End: 07-08-2019 Patient encounter status Lauro Angeles PA-C Work Phone: [employer] Start: 07-08-2019 End: 07-08-2019 Periodic preventive med est patient 40-64yrs Lauro Angeles PA-C Work Phone: [employer]. Start: 07-02-2019 End: 07-04-2019 Orders Lauro Angeles PA-C Work Phone: [employer]. Start: 06-16-2019 End: 06-16-2019 Orders Lauro Angeles PA-C Work Phone: [employer]. Start: 03-30-2019 End: 03-30-2019 Office outpatient visit 15 minutes Lauro Angeles PA-C Work Phone: [employer] Start: 07-07-2018 End: 07-07-2018 Patient encounter status Lauro Angeles PA-C Work Phone: [employer] Start: 07-07-2018 End: 07-07-2018 Periodic preventive med est patient 40-64yrs Lauro De Leoner PA-C Work Phone: [employer]. Start: 05-12-2018 End: 05-12-2018 Orders Lauro Angeles PA-C Work Phone: [employer]. Start: 10-26-2017 End: 10-26-2017 Orders Lauro Angeles PA-C Work Phone: [employer]. Start: 07-02-2017 End: 07-02-2017 Patient encounter status Lauro De Leoner PA-C Work Phone: [employer]. Start: 07-02-2017 End: 07-02-2017 Periodic preventive med est patient 40-64yrs Lauro Angeles PA-C Work Phone: [employer]. Start: 06-01-2017 End: 06-03-2017 Orders Lauro Angeles PA-C Work Phone: [employer]. Start: 06-24-2016 End: 06-24-2016 Patient encounter procedure Lauro Angeles PA-C Work Phone: [employer]. Start: 06-24-2016 End: 06-24-2016 Patient encounter status Lauro De Leoner PA-C Work Phone: [employer] Work Phone: Start: 06-23-2016 End: 06-23-2016 Historical Summary Lauro Angeles PA-C Work Phone: [employer]. Start: 06-19-2016 End: 06-19-2016 Orders Lauro Angeles PA-C Work Phone: [employer] Start: 06-09-2016 End: 06-09-2016 Orders Lauro Angeles PA-C Work Phone: [facility] Start: 07-12-2015 End: 07-12-2015 Patient encounter procedure Lynsey Valdez Chloebenjaminlindsay [employer]NA[employer] [facility] Start: 06-28-2015 End: 06-28-2015 Orders Lauro Angeles PA-C Work Phone: [facility] Start: 01-11-2015 End: 01-12-2015 Patient encounter procedure Lauro Angeles PA-C Work Phone: [facility] Patient encounter procedure Mireille Lopez [facility] Patient encounter procedure Deb Glasgow [facility] [facility] Patient encounter procedure Lauro Carpenter Angeles PA-C Work Phone: [facility]; [facility] Patient encounter status Lauro Carpenter Angeles PA-C Work Phone: [facility]; [employer] Patient encounter status Lauro Carpenter Angeles PA-C Work Phone: [facility].; [facility] Procedures Date Procedure Procedure Detail Performing Clinician Start: 07-07-2024 End: 07-07-2024 Body mass index documented Lauro Carpenter Pal lalo PA-C Work Phone: Start: 07-07-2024 End: 07-07-2024 Depression screening Lauro Carpenter Angeles PA -C Work Phone: Start: 07-07-2024 End: 07-07-2024 Scr dep neg, no plan reqd Lauro Carpenter Palm er PA-C Work Phone: Start: 07-04-2024 End: 07-04-2024 Lab findings surveillance Miri BAR Work Phone: Comment on above: Results:. 86 Start: 07-04-2024 End: 07-04-2024 Lipid panel Miri Hutchinson LPN Work Phone: Comment on above: tc 183 hdl 46 ldl 11 4 trig 113 Start: 07-04-2024 End: 07-04-2024 Thyrotropin [Units/volume] in Serum or Plasma Lauro Carpenter Angeles PA-C Work Phone: Comment on above: 3.000 Start: 06-30-2024 End: 08-05-2024 Screening digital breast tomosynthesis bi Lauro Carpenter Angeles PA-C Work Phone: Start: 05-17-2024 End: 05-19-2024 Radex foot complete minimum 3 views Kamlesh Cruz MD Work Phone: Start: 02-19-2024 End: 02-25-2024 Radex foot complete minimum 3 views Lauro Carpenter Angeles PA-C Work Phone: Start: 08-14-2023 End: 08-14-2023 FIT DNA test Chelo Pal RN Comment on above: Negative Finding. Start: 07-31-2023 End: 07-31-2023 Screening mammography Miri Hutchinson LPN Work Phone: Comment on above: Normal. Start: 06-24-2023 End: 06-24-2023 Depression screening Lauro Carpenter Angeles PA -C Work Phone: Start: 06-24-2023 End: 08-25-2023 Oncology colorectal screening vaishali 10 dna markrs Lauro Carpenter Angeles PA-C Work Phone: Start: 06-24-2023 End: 06-24-2023 Scr dep neg, no plan reqd Lauro De Loen er PA-C Work Phone: Start: 06-18-2023 End: 06-18-2023 Lab findings surveillance Mireille be LPN Comment on above: Results:. 101 CMP Start: 06-18-2023 End: 06-18-2023 Lipid panel Mireille Lopez LP N Comment on above: TC 180, HDL 41, LDL 121, Trig 89 Start: 06-01-2023 End: 07-31-2023 Screening digital breast tomosynthesis bi Regineabhinav Raman PA-C Work Phone: Start: 07-30-2022 Screening mammography Start: 07-18-2022 End: 07-31-2022 Screening digital breast tomosynthesis bi Lauro Angeles PA-C Work Phone: Start: 11-18-2021 End: 11-20-2021 Radex shoulder complete minimum 2 views Lauro Angeles PA-C Work Phone: Start: 07-17-2021 End: 07-17-2021 Depression screening Lauro Angeles PA -C Work Phone: Start: 07-17-2021 End: 07-17-2021 Scr dep neg, no plan reqd Lauro De Leon er PA-C Work Phone: Start: 06-10-2021 End: 07-18-2021 Diagnostic mammography computer-aided detcj bi Lauro Angeles PA-C Work Phone: Start: 11-16-2020 End: 11-16-2020 No Known Past Surgical History Mireille Lopez LPN Start: 08-03-2020 End: 08-03-2020 Vero Pal RN Comment on above: Normal. Start: 07-19-2020 End: 07-19-2020 Depression screening Lauro De Leoner PA -C Work Phone: Start: 07-19-2020 End: 08-14-2020 Oncology colorectal screening vaishali 10 dna markrs Lauro De Leoner PA-C Work Phone: Start: 07-19-2020 End: 07-19-2020 Scr dep neg, no plan reqd Lauro Carpenter Palm er PA-C Work Phone: Start: 03-31-2020 End: 03-31-2020 Abdominal hysterectomy Mireille Lopez LPN Start: 07-08-2019 End: 07-08-2019 Depression screening Lauro De Leoner PA -C Work Phone: Start: 07-08-2019 End: 07-08-2019 Scr dep neg, no plan reqd Lauro Carpenter Palm er PA-C Work Phone: Start: 06-16-2019 End: 08-09-2019 Screening mammography bi 2-view breast inc cad Lauro Carpenter Karthik LIMA-Jhoan Work Phone: Start: 07-07-2018 End: 07-07-2018 Flu imm no admin doc asad Carpenter Toma r PA-C Work Phone: Start: 10-29-2017 End: 10-29-2017 Screening mammography Mireille Lopez LPN Comment on above: Normal. Start: 10-26-2017 End: 10-29-2017 Screening mammography bi 2-view breast inc cad Lauro Carpenter Karthik LIMA-C Work Phone: Start: 07-02-2017 End: 07-02-2017 Flu imm no admin doc asad Carpenter Toma r PA-C Work Phone: Start: 07-12-2015 End: 09-20-2016 Mammogram, screening Lauro Hernandez Work Phone: Start: 07-12-2015 End: 07-12-2015 Microscopic examination of cervical Papanicolaou smear Mireille Lopez LPN Comment on above: Normal. 3 yr Normal. 3 yr had hys terectomy in 2019 Start: 05-31-2015 End: 05-31-2015 Comprehensive metabolic 2000 panel - Serum or Plasma Mireille Lopez LPN Start: 12-29-2014 End: 12-29-2014 Ophthalmic examination and evaluation Mireille Lopez LPN Plan of Treatment Date Care Activity Detail Author Start: 07-07-2024 Provider Instructions for Treatment [facility] HM Issues, 50-64 female Indication: Annual physical exam Start: 07-Jul-2024 Instruction Type: Provider Instructions for Treatment [facility] [employer] Start: 07-07-2024 Patient encounter procedure Medical; PHYSICAL - AWV [employer] Start: 07-Jul-2024 08:20-05:00 DAVID Angeles Request [employer] Start: 07-01-2024 Patient encounter procedure Medical; PHYSICAL - AWV [employer] Start: 01-Jul-2024 08:20-04:00 DAVID Angeles Appointment Request [employer] Start: 06-30-2024 Assay of thyroid stimulating hormone tsh TSH W/ REFL FREE T4 (04289,75144) (32009) Start: 30-Jun-2024 Request [employer] Start: 06-30-2024 Blood count complete auto&auto difrntl wbc CBC, PLATELETS & AUT DIFF (F) (75051) Start: 30-Jun-2024 Request [employer] Start: 06-30-2024 Comprehensive metabolic panel CMP w/ GFR* (48584) Start: 30-Jun-2024 Request [employer] Start: 06-30-2024 Lipid panel LIPID PANEL (66063) Start: 30-Jun-2024 Request [employer] Start: 06-30-2024 Screening digital breast tomosynthesis bi Mammogram 3D (tomosynthesis), bilateral (87251) Start: 30-Jun-2024 Intent [employer] Start: 05-17-2024 Radex foot complete minimum 3 views Foot, Right Complete x-ray (52106) Start: 17-May-2024 Intent [employer] Start: 02-19-2024 Radex foot complete minimum 3 views Foot, Left Complete x-ray (46700) Start: 19-Feb-2024 Intent [employer] Start: 06-24-2023 Oncology colorectal screening vaishali 10 dna markrs COLOGUARD COLON CANCER SCREENING USING STOOL DNA AT POINT OF CARE (05439) Start: 24-Jun-2023 Intent [employer] Start: 07-30-2022 MG Breast - bilateral Screening [facility] Work Phone: Start: 07-30-2022 Screening mammography SCRN MAMM (CAD)W/MAGNO BILAT [facility] Work Phone: Start: 07-17-2021 Provider Instructions for Treatment [facility] HM Issues, 40-49 female Indication: Annual physical exam Start: 17-Jul-2021 Instruction Type: Provider Instructions for Treatment [employer] Start: 05-31-2020 Screening mammography bi 2-view breast inc cad Mammogram Bilateral Screening (87576) Start: 31-May-2020 Intent [employer] Start: 07-02-2017 Screening mammography bi 2-view breast inc cad Mammogram Bilateral Screening (17886) Start: 02-Jul-2017 Intent [employer] Immunizations Immunization Date Immunization Notes Care Provider Chris pierre 05-28-2023 influenza, injectabl e, quadrivalent, preservative free [facility] 06-02-2022 influenza, injectabl e, quadrivalent, preservative free [facility] 06-02-2022 influenza, seasonal, injectable [facility] Work Phone: 07-08-2019 influenza, injectabl e, quadrivalent, contains preservative Lauro Angeles PA-C Work Phone: [facility] [place] [employer] [facility], [employer]. 01-11-2015 tetanus toxoid, reduced diphtheria toxoid, and acellular pertussis vaccine, adsorbed [facility] Comment on above: Site: Deltoid (Left) VIS Given: * TDAP, Td (01/06/2013) NEGATED: Highlighted row has not occurred!07-08-2019 influenza, injectable, quadrivalent, contains preservative Lauro Angeles PA-C Work Phone: [facility] [place] [employer]. Comment on above: VIS Given: * Influen za - Inactivated (04/06/15) Payers Date Payer Category Payer Self-pay [id number] 1ca 2024 Unknown [id number] 1970 Unknown [id number] 1970 Unknown [id number] 1970 Unknown [id number] Private Health Insurance [id number] Private Health Insurance [id number] Private Health Insurance [id number] Unknown [facility] Unknown [id number] Unknown [id number] Unknown [id number] Unknown [id number] Social History Date Type Detail Facility Start: 03-27-2020 End: 03-27-2020 Tobacco smoking status GAIS Unknown if ever smoked [facility] Start: 03-27-2020 Non-smoker [facility] Start: 1970 Sex Assigned At Female [facility] Alcohol Use Alcohol Use [facility], [facility].; [facility] Tobacco Use: Tobacco Use: ; N ever smoker. [facility] [place] [employer] [facility] Never smoked tobacco [employer], [facility].; [employer] [facility] Work Phone: NEGATED: Highlighted row No Social History Information Available No Social History Information Available [facility].; [employer] [facility], [facility]. Work Phone: Evaluation note Note Date & Type Note Facility Evaluation note No assessment information availa ble [facility] Work Phone: Summary Purpose Family History arthritis-mother, father Status:Active Comment s:grandparents Breast Cancer Status:Active Comments:andbone grandmother Coronary Artery Disease Status:Active Comments :Father. Mother. Dad with [place] at 77 Hypertension Status:Active Comments:Mother. Father. grandparents arthritis-mother, father Status:Active Comment s:grandparents Breast Cancer Status:Active Comments:andbone grandmother Coronary Artery Disease Status:Active Comments :Father. Mother. Dad with [place] at 77 Hypertension Status:Active Comments:Mother. Father. grandparents arthritis-mother, father Status:Active Comment s:grandparents Breast Cancer Status:Active Comments:andbone grandmother Coronary Artery Disease Status:Active Comments :Father. Mother. Dad with [place] at 77 Hypertension Status:Active Comments:Mother. Father. grandparents arthritis-mother, father Status:Active Comment s:grandparents Breast Cancer Status:Active Comments:andbone grandmother Coronary Artery Disease Status:Active Comments :Father. Mother. Dad with [place] at 77 Hypertension Status:Active Comments:Mother. Father. grandparents arthritis-mother, father Status:Active Comment s:grandparents Breast Cancer Status:Active Comments:andbone grandmother Coronary Artery Disease Status:Active Comments :Father. Mother. Dad with [place] at 77 Hypertension Status:Active Comments:Mother. Father. grandparents arthritis-mother, father Status:Active Comment s:grandparents Breast Cancer Status:Active Comments:andbone grandmother Coronary Artery Disease Status:Active Comments :Father. Mother. Dad with [place] at 77 Hypertension Status:Active Comments:Mother. Father. grandparents arthritis-mother, father Status:Active Comment s:grandparents Breast Cancer Status:Active Comments:andbone grandmother Coronary Artery Disease Status:Active Comments :Father. Mother. Dad with [place] at 77 Hypertension Status:Active Comments:Mother. Father. grandparents arthritis-mother, father Status:Active Comment s:grandparents Breast Cancer Status:Active Comments:andbone grandmother Coronary Artery Disease Status:Active Comments :Father. Mother. Dad with [place] at 77 Hypertension Status:Active Comments:Mother. Father. grandparents arthritis-mother, father Status:Active Comment s:grandparents Breast Cancer Status:Active Comments:andbone grandmother Coronary Artery Disease Status:Active Comments :Father. Mother. Dad with [place] at 77 Hypertension Status:Active Comments:Mother. Father. grandparents arthritis-mother, father Status:Active Comment s:grandparents Breast Cancer Status:Active Comments:andbone grandmother Coronary Artery Disease Status:Active Comments :Father. Mother. Dad with [place] at 77 Hypertension Status:Active Comments:Mother. Father. grandparents arthritis-mother, father Status:Active Comment s:grandparents Breast Cancer Status:Active Comments:andbone grandmother Coronary Artery Disease Status:Active Comments :Father. Mother. Dad with [place] at 77 Hypertension Status:Active Comments:Mother. Father. grandparents arthritis-mother, father Status:Active Comment s:grandparents Breast Cancer Status:Active Comments:andbone grandmother Coronary Artery Disease Status:Active Comments :Father. Mother. Dad with [place] at 77 Hypertension Status:Active Comments:Mother. Father. grandparents arthritis-mother, father Status:Active Comment s:grandparents Breast Cancer Status:Active Comments:andbone grandmother Coronary Artery Disease Status:Active Comments :Father. Mother. Dad with [place] at 77 Hypertension Status:Active Comments:Mother. Father. grandparents arthritis-mother, father Status:Active Comment s:grandparents Breast Cancer Status:Active Comments:andbone grandmother Coronary Artery Disease Status:Active Comments :Father. Mother. Dad with [place] at 77 Hypertension Status:Active Comments:Mother. Father. grandparents arthritis-mother, father Status:Active Comment s:grandparents Breast Cancer Status:Active Comments:andbone grandmother Coronary Artery Disease Status:Active Comments :Father. Mother. Dad with [place] at 77 Hypertension Status:Active Comments:Mother. Father. grandparents arthritis-mother, father Status:Active Comment s:grandparents Breast Cancer Status:Active Comments:andbone grandmother Coronary Artery Disease Status:Active Comments :Father. Mother. Dad with [place] at 77 Hypertension Status:Active Comments:Mother. Father. grandparents arthritis-mother, father Status:Active Comment s:grandparents Breast Cancer Status:Active Comments:andbone grandmother Coronary Artery Disease Status:Active Comments :Father. Mother. Dad with [place] at 77 Hypertension Status:Active Comments:Mother. Father. grandparents arthritis-mother, father Status:Active Comment s:grandparents Breast Cancer Status:Active Comments:andbone grandmother Coronary Artery Disease Status:Active Comments :Father. Mother. Dad with [place] at 77 Hypertension Status:Active Comments:Mother. Father. grandparents arthritis-mother, father Status:Active Comment s:grandparents Breast Cancer Status:Active Comments:andbone grandmother Coronary Artery Disease Status:Active Comments :Father. Mother. Dad with [place] at 77 Hypertension Status:Active Comments:Mother. Father. grandparents arthritis-mother, father Status:Active Comment s:grandparents Breast Cancer Status:Active Comments:andbone grandmother Coronary Artery Disease Status:Active Comments :Father. Mother. Dad with [place] at 77 Hypertension Status:Active Comments:Mother. Father. grandparents arthritis-mother, father Status:Active Comment s:grandparents Breast Cancer Status:Active Comments:andbone grandmother Coronary Artery Disease Status:Active Comments :Father. Mother. Dad with [place] at 77 Hypertension Status:Active Comments:Mother. Father. grandparents arthritis-mother, father Status:Active Comment s:grandparents Breast Cancer Status:Active Comments:andbone grandmother Coronary Artery Disease Status:Active Comments :Father. Mother. Dad with [place] at 77 Hypertension Status:Active Comments:Mother. Father. grandparents arthritis-mother, father Status:Active Comment s:grandparents Breast Cancer Status:Active Comments:andbone grandmother Coronary Artery Disease Status:Active Comments :Father. Mother. Dad with [place] at 77 Hypertension Status:Active Comments:Mother. Father. grandparents arthritis-mother, father Status:Active Comment s:grandparents Breast Cancer Status:Active Comments:andbone grandmother Coronary Artery Disease Status:Active Comments :Father. Mother. Dad with [place] at 77 Hypertension Status:Active Comments:Mother. Father. grandparents arthritis-mother, father Status:Active Comment s:grandparents Breast Cancer Status:Active Comments:andbone grandmother Coronary Artery Disease Status:Active Comments :Father. Mother. Dad with [place] at 77 Hypertension Status:Active Comments:Mother. Father. grandparents Advance Directives Advance Directive Response Recorded Date/ Time Living Will No April 02, 2020 1:29pm Power of [employer] Lead No April 02 1:29pm Advance Directive Response Recorded Date/ Time Living Will No April 02, 2020 2:29pm Power of [employer] Lead No April 02 2:29pm Chief Complaint and Reason for Visit Chief Complaint SCREENING Additional Source Comments INFORMATION SOURCE (unrecogn ized section and content) DATE CREATED AUTHOR 11/19/2020 [facility] DATE CREATED AUTHOR AUTHOR'S ORGANIZ ATION [facility] DATE CREATED AUTHOR AUTHOR'S EMILIE ISRAEL 09/11/2024 [facility] Goals (unrecognized section and content) Goals may be documented in a n alternate sectionGoals may be documented in an alternate sectionGoals may be documented in an alternate section Care Teams (unrecognized sec tion and content) Team Status: Active Member Role Status Dates JANIE Crespo Primary Care Provider Active Team Status: Inactive Member Role Status Dates JANIE Crespo Primary Care Provi lyndsey, Attending Provider, Referring Provider Active FOR RECORDS PERTAINING TO PATIENTS WHO ARE OR HAVE BEEN ENROLLED IN A CHEMICAL DEPENDENCY/SUBSTANCEABUSE PROGRAM, SOME INFORMATION MAY BE OMITTED. This clinical summary was aggregated from multiple sources. Caution should be exercised in using it in the provision of clinical care. This summary normalizes information from multiple sources, and as a consequence, information in this document may materially change the coding, format and clinical context of patient data. In addition, data may be omitted in some cases. CLINICAL DECISIONS SHOULD BE BASED ON THE PRIMARY CLINICAL RECORDS. [employer] provides no warranty or guarantee of the accuracy or completeness of information in this document.
[2025-06-27 10:44] LABS: AST(SGOT) 17 U/L (<=31); Alanine Aminotransfer ALT/SGPT 13 U/L (<=34); Albumin, Serum 3.9 g/dL (3.5-5.0); Alkaline Phosphatase 106 U/L (35-104); Anion Gap 11 (5-15); BUN 12 mg/dL (4-19); BUN/Creat Ratio 14.5 RATIO (10-20); Calcium,Total 9.2 mg/dL (7.6-11.0); Carbon Dioxide 22.9 mmol/L (21.0-32.0); Chloride 105 mmol/L (98-108); Cholesterol 184 mg/dL (<=200); Globulin 3.4 g/dL (2.2-4.2); Glucose 80 mg/dL (70-99); Low Density Lipoprotein Calc. 125 mg/dL; Potassium 4.2 mmol/L (3.3-5.1); Triglycerides 77 mg/dL; Very Low Density Lipoprotein 15 mg/dL (5-40); cholesterol:hdl ratio screen 4.12
== END | disposition home or self-care (01) ==
LOC: LAB 07:06
PROVIDERS: PCP Physician Assistant; Referring Provider Physician Assistant; Visit Provider Physician Assistant
DX: E78.5 Hyperlipidemia, unspecified (principal); E66.9 Obesity, unspecified
CPT/HCPCS: 36415; 80053; 80061

== ENCOUNTER → 2025-08-08 | Outpatient (CLI) | payer OTHER, SELFPAY ==
--- NOTE | 2025-08-08 16:15 | RAD_ITS ---
PROCEDURE: CHEST PA AND LATERAL 08/08/2025 REASON FOR EXAM: WHEEZING TECHNIQUE: Procedure Code: RADCXR Modality: DX Procedure: CHEST PA AND LATERAL COMPARISON: none FINDINGS: No focal consolidation. Bibasilar subsegmental atelectasis. No pleural effusion or pneumothorax. Cardiac silhouette is within normal limits. No acute fractures. RAD/Chest PA and Lateral IMPRESSION: No focal consolidation. Bibasilar subsegmental atelectasis. Reading Location: [id number]
== END | disposition home or self-care (01) ==
LOC: RAD 16:14
PROVIDERS: PCP Physician Assistant; Referring Provider Physician Assistant; Visit Provider Physician Assistant
DX: R06.2 Wheezing (principal)
CPT/HCPCS: 71046

== ENCOUNTER → 2025-08-09 | Outpatient (CLI) | payer OTHER, SELFPAY ==
--- NOTE | 2025-08-09 15:09 | BI_ITS ---
EXAM: SCRN MAMM (CAD)W/MAGNO BILAT DATE: 08/09/2025 CLINICAL HISTORY: F, Age 55 y/o , SCREENING TECHNIQUE: Procedure Code: [id number] Modality: MG Procedure: SCRN MAMM (CAD)W/MAGNO BILAT COMPARISON: Prior exam(s) were compared FINDINGS: TISSUE DENSITY: The breasts are heterogeneously dense, which may obscure small masses. Bilateral Breast Mammographic Findings: No significant masses, calcifications or other abnormalities are identified. BI/SCRN MAMM (CAD)W/MAGNO BILAT IMPRESSION: No mammographic evidence of malignancy in either breast. OVERALL FINAL ASSESSMENT BI-RADS 1: NEGATIVE. RECOMMENDATION: Routine annual follow-up in 1 Year Additional Recommendation none A letter with findings and recommendations will be mailed to the patient. Reading Location: [id number]
== END | disposition home or self-care (01) ==
LOC: OPBI 15:08
PROVIDERS: PCP Physician Assistant; Referring Provider Physician Assistant; Visit Provider Physician Assistant
DX: Z12.31 Encounter for screening mammogram for malignant neoplasm of breast (principal)
CPT/HCPCS: 77063; 77067

== ENCOUNTER → 2025-08-14 | Outpatient (CLI) | payer OTHER, SELFPAY ==
--- OUTSIDE RECORDS SUMMARY | 2025-08-14 06:53 | XMS RPT_ITS | CCD ---
Author Organization [facility] Care Team Providers Care [employer] Name Role Phone ANGELES, LAURO J Admitting [...] Consulting Unavailable Angeles DAVID, Lauro J Unavailable Angelesdemarcus HERNANDEZ, Lauro J Unavailable [phone] Jacque TAMAYO, Dr. Russell Krishnan Unavailable Anthony TAMAYO, Kamlesh Cadet Unavailable Roseline Wayne MA Unavailable Unavailable Jay SEVILLANChula Unavailable Unavailable RN SCHOOL-[employer], Leo Edgar Unavailable [phone] Kae CONLEY, Chelo Dominguez Unavailable Unavaila ble [place]augh QUALITY ASSURANCE ASSOCIATE, Lynsey K Unavailable Unavai lable Jessica QUALITY ASSURANCE ASSOCIATE, Mireille M Unavailable Unavailab le Inkerman QUALITY ASSURANCE ASSOCIATE, Yuki Phelps Unavailable Unavailab Deb Anaya MA Unavailable Unavailable Vess QUALITY ASSURANCE ASSOCIATE, Nemigdalia L Unavailable Unavailable Wengerd QUALITY ASSURANCE ASSOCIATE, Navya Unavailable Unavailabl e Unavailable Unavailable Pee SEVILLAN, Deb Unavailable Unavailable Mini SHORT, Dr. Chula Kohler Unavailable Evangelina QUALITY ASSURANCE ASSOCIATE, Miri Unavailable Lauro Parra Referring Unavailable Lauro Parra Attending Unavailable Lauro Parra Primary Care Unavailable Lauro Parra Primary Care Unavailable Lauro Parra Referring Unavailable Lauro Parra Attending Unavailable Medications Current Medications Medication Drug Class(es) [...] Start: 03-27-2020 take 1 tablet by casey th once daily Atorvastatin Calcium 20 MG Oral [...] mg oral capsule (3 sources) Start: 04-02-20 20 take 100 mg by mouth twice daily as needed Docusate Sodium Active 100 MG PO TWICE DAILY NEEDED 60 April 02, 2020 12:00am ibuprofen 400 mg oral tablet (3 sources) Nonsteroidal Anti-inflammatory Drug Start: 03-27-20 20 Ibuprofen Active 400 MG PO NEEDED [...] Start: 12-Jun-2023 Comment on above: Dose increase timolol 2.5 mg/ml ophthalmic solution (20 sources) [...] {Gram} Refills: 1 Ordered: 12-Jul-2015 GUSTABO Ellis Start: 11-Jan-2015 End: 12-Jul-2015 Status: Inactive Comments: 4-8 weeks Erygel 2 % Exter nal Gel ; as needed (2 %) Status: Inactive Comments: Medication taken as needed. Comment on above: Medication taken as needed. 4-8 weeks ferrous sulfate (20 sources) Iron Status: Inactive metroNIDAZOLE 0.01 mg/mg topical gel (20 sources) Nitroimidazole Antimicrobial Start: 07-02-20 End: 07-07-20 Metrogel 1 % External Gel ; 1 (one) application to affected areas BID for 0 days Quantity: 60 {Gram} Refills: 0 Ordered: 07-Jul-2018 GUSTABO Shaw Start: 02-Jul-2017 End: 07-Jul-2018 Status: Inactive Comments: [...] metabolism (20 sources) Hyperlipidemia; Translations: [Hyperlipidemia, unspecified] Onset: 07-06-2025 06-24-2023 Chronic Esophageal disorders (20 sources) Gastroesophageal [...] obesity; Translations: [Obesity, unspecified] 06-24-2023 Chronic Other upper respiratory infections (20 sources) Sinusitis; [...] The patient has been seen by an inspector eyeglass frames in the past 12 months (05/2018), but [...] The patient has been seen by an inspector eyeglass frames in the past 12 months (05/2018), but [...] Classification Problem Date Documented Date Episodic/Chronic Other screening for suspected conditions (not mental disorders or infectious disease) (20 sources) Patient encounter status; Translations: [Encounter for other screening for malignant neoplasm of breast] Onset: 09-05-2024 06-24-2023 Episodic Unclassified (20 sources) Well adult female [...] noticed pain when she was reaching forward. 11-18-2021 Unclassified (20 sources) Cold Symptoms - Note [...] pain: Injured 3 days ago while at [employer]. Her [employer] ran into her leg and foot twisted. reviewed by [facility] 05-17-2024 Unclassified (4 sources) Well adult female [...] Test Name Value Interpretation Reference Range Facility Comprehensive Metabolic Prof [facility] 06-27-2025 Albumin [Mass/Vol] 3.9 g/dL Normal 3.5-5.0 [facility] Comment on above: Performed By: #### L 500.4100, L500.4050 #### [facility] [address] [place], [address] Albumin/Globulin [Mass ratio] 1.1 {ratio} Normal 0.9-2.4 [facility] Comment on above: Performed By: #### L 500.4100, L500.4050 #### [facility] [address] [place], [address] ALK PHOS 106 U/L High 35-104 [facility] Comment on above: Performed By: #### L 500.4100, [id number] #### [facility] [address] [place], [address] ALT [Catalytic activity/Vol] 13 U/L Normal <=34 [facility] Comment on above: Performed By: #### L 500.4100, [id number] #### [facility] [address] [place], [address] AST [Catalytic activity/Vol] 17 U/L Normal <=31 [facility] Comment on above: Performed By: #### L 500.4100, [id number] #### [facility] [address] [place], [address] Bilirubin [Mass/Vol] 0.38 mg/dL Normal 0.00-1.30 [facility] Comment on above: Performed By: #### L 500.4100, [id number] #### [facility] [address] [place], [address] BUN/CRE 14.5 RATIO Normal 10-20 [facility] Comment on above: Performed By: #### L 500.4100, [id number] #### [facility] [address] [place], [address] Calcium [Mass/Vol] 9.2 mg/dL Normal 7.6-11.0 [facility] Comment on above: Performed By: #### L 500.4100, [id number] #### [facility] [address] [place], [address] Chloride [Moles/Vol] 105 mmol/L Normal 98-108 [facility] Comment on above: Performed By: #### L 500.4100, [id number] #### [facility] [address] [place], [address] CO2 [Moles/Vol] 22.9 mmol/L Normal 21.0-32.0 [facility] Comment on above: Performed By: #### L 500.4100, [id number] #### [facility] [address] [place], [address] Creatinine [Mass/Vol] 0.86 mg/dL Normal 0.70-1.20 [facility] Comment on above: Performed By: #### L 500.4100, [id number] #### [facility] [address] [place], [address] GAP 11 Normal 5-15 [facility] Comment on above: Performed By: #### L 500.4100, [id number] #### [facility] [address] [place], [address] GFR/1.73 sq M.predicted among non-blacks MDRD (S/P/Bld) [Vol rate/Area] 80 mL/min/{1.73_m2} Normal >60 [facility] Comment on above: Result Comment: mL/m in/1.73m2 CKD-EPI Creatinine Equation (2020) Performed By: #### L 500.4100, [id number] #### [facility] [address] [place], [address] Globulin (S) [Mass/Vol] 3.4 g/dL Normal 2.2-4.2 [facility] Comment on above: Performed By: #### L 500.4100, [id number] #### [facility] [address] [place], [address] Glucose [Mass/Vol] 80 mg/dL Normal 70-99 [facility] Comment on above: Performed By: #### L 500.4100, [id number] #### [facility] [address] [place], [address] Potassium [Moles/Vol] 4.2 mmol/L Normal 3.3-5.1 [facility] Comment on above: Performed By: #### L 500.4100, [id number] #### [facility] [address] [place], [address] Sodium [Moles/Vol] 139 mmol/L Normal 133-145 [facility] Comment on above: Performed By: #### L 500.4100, [id number] #### [facility] [address] [place], [address] T PROT 7.3 g/dL Normal 5.9-8.4 [facility] Comment on above: Performed By: #### L 500.4100, [id number] #### [facility] [address] [place], [address] Urea nitrogen [Mass/Vol] 12 mg/dL Normal 4-19 [facility] Comment on above: Performed By: #### L 500.4100, [id number] #### [facility] [address] [place], [address] Lipid Profileon 06-27-2025 CHOL:HDL 4.12 Normal [facility] Comment on above: Performed By: #### L 500.4100, [id number] #### [facility] [address] [place], [address] Cholesterol [Mass/Vol] 184 mg/dL Normal <=200 [facility] Comment on above: Result Comment: Chol esterol level, Desirable <200 mg/dL Borderline high cholesterol 200-239 mg/dL High cholesterol >=240 mg/dL Recommendations of the NCEP Adult Treatment Panel for the following risk-cutoff thresholds for the [place] population. Performed By: #### L 500.4100, L500.4050 #### [facility] [address] [place], [address] Cholesterol in HDL [Mass/Vol] 45 mg/dL Normal [facility] Comment on above: Result Comment: Sweta onal Cholesterol Education Program (NCEP) guidelines: <40 mg/dL: Low HDL-cholesterol (major risk factor for CHD) >= 60 mg/dL: High HDL-cholesterol (negative risk factor for CHD) HDL-cholesterol is affected by a number of factors, e.g. smoking, exercise, hormones, sex and age. Performed By: #### L 500.4100, [id number] #### [facility] [address] [place], [address] Cholesterol in LDL [Mass/Vol] 125 mg/dL Normal [facility] Comment on above: Result Comment: Bord ntwjol=393-550 mg/dL Higher Doxf=954 mg/dL or greater Archibald Equation 2020 for LDL-C Performed By: #### L 500.4100, [id number] #### [facility] [address] [place], [address] Cholesterol in VLDL [Mass/Vol] 15 mg/dL Normal 5-40 [facility] Comment on above: Performed By: #### L 500.4100, [id number] #### [facility] [address] [place], [address] Triglyceride [Mass/Vol] 77 mg/dL Normal [facility] Comment on above: Result Comment: The drugs N-Acetylcysteine and Metamizole may falsely depress this assay. Normal range: <150 mg/dL Borderline High: 150-199 mg/dL High: 200-499 mg/dL Very High: >500 mg/dL Performed By: #### L 500.4100, [id number] #### [facility] [address] [place], [address] SCRN MAMM (CAD)W/MAGNO BILATo n 08-04-2024 SCRN MAMM (CAD)W/MAGNO BILAT [facility] Imaging Services [address] [place] [address] SCRN MAMM (CAD)W/MAGNO BILAT MR#: [id number] Acct: [id number] Name: YUKI GUAMAN Rep #: [id number] : 1970 F 54 From: Nguyễn york MD PCP: JANIE Coreas Status: REG CL Study: SCRN MAMM (CAD)W/MAGNO BILAT Date of Exam: 01/21 Exam# [id number] Ordering Dr: Lauro Angeles -[id number] MAMMOGRAPHY - BILATERAL SCREENING REASON FOR [...] delay biopsy of a clinically suspicious abnormality. [id number] Electronically Signed: Nguyễn Bateman MD at 8:29 EST , CC: JANIE Coreas Sheet Finisher: Signed Normal [facility] - Chemistry and C hemistry - challengeon 07-04-2024 Albumin [Mass/Vol] 3.5 g/dL Normal 3.2 - 5.0 g/dL [facility], [facility]. Albumin/Globulin [Mass ratio] 0.9 {ratio} Normal 0.9 - 2.4 {RATIO} [facility], [facility].; [facility], [facility]. ALT [Catalytic activity/Vol] 24 U/L Normal 13 - 56 U/L [facility], [facility].; [facility], [facility]. AST [Catalytic activity/Vol] 23 U/L Normal 15 - 37 U/L [facility], [facility].; [facility], [facility]. Bilirubin [Mass/Vol] 0.40 mg/dL Normal 0.20 - 1.00 mg/dL [facility], [facility].; [facility], [facility]. Chloride [Moles/Vol] 108 mmol/L Abnormal 98 - 10 7 mmol/L [facility].; [facility], [facility]. Cholesterol [Mass/Vol] 183 mg/dL Normal [facility].; [facility], [facility] Cholesterol in HDL [Mass/Vol] 46 mg/dL Normal [facility].; [facility], [facility]. Cholesterol in LDL [Mass/Vol] 114 mg/dL Normal 0 - 130 mg/dL [facility], [facility].; [facility], [facility]. Cholesterol in VLDL [Mass/Vol] 23 mg/dL Normal 5 - 40 mg/dL [facility], [facility].; [facility], [facility]. CO2 [Moles/Vol] 25.0 mmol/L Normal 21.0 - 32.0 mmol/L [facility], [facility].; [facility], [facility]. Creatinine [Mass/Vol] 0.92 mg/dL Normal 0.55 - 1.02 mg/dL [facility], [facility].; [facility], [facility]. GFR/1.73 sq M.predicted among non-blacks MDRD (S/P/Bld) [Vol rate/Area] 68 mL/min/{1.73_m2} Normal [facility], [facility].; [facility] Globulin (S) [Mass/Vol] 3.8 g/dL Normal 2.2 - 4.2 g/dL [facility], [facility].; [facility] Glucose [Mass/Vol] 86 mg/dL Normal 74 - 106 mg/dL [facility].; [facility] Magnesium [Mass/Vol] 9.0 mg/dL Normal 8.5 - 1 0.1 mg/dL [facility].; [facility], [facility] Potassium [Moles/Vol] 4.1 mmol/L Normal 3.5 - 5.1 mmol/L [facility].; [facility], [facility] Sodium [Moles/Vol] 140 mmol/L Normal 136 - 145 mmol/L [facility].; [facility], [facility] Triglyceride [Mass/Vol] 113 mg/dL Normal [facility], [facility].; [facility], [facility] Urea nitrogen [Mass/Vol] 16 mg/dL Normal 7 - 18 mg/dL [facility]; [facility], [facility] Laboratory - Hematology and Cell countson 07-04-2024 Basophils/100 WBC (Bld) 1.0 % Normal 0 - 1 [facility].; [facility] Eosinophils/100 WBC (Bld) 10.9 % Abnormal 0 - 5 [facility].; [place] [employer] [facility], [facility] Erythrocyte distribution width (RBC) [Ratio] 13.1 % Normal 11.6 - 14.6 [facility].; [place] [employer] [facility], [facility] Hematocrit (Bld) [Volume fraction] 42.2 % Normal 37 - 47 [facility]; [place] [employer], [facility] Hemoglobin (Bld) [Mass/Vol] 13.4 g/dL Normal 12.0 - 15.0 g/dL [facility].; [place] [employer] [facility]. Lymphocytes/100 WBC (Bld) 21.8 % Normal 19 - 41 [facility].; [place] [employer] [facility], [facility]. MCH (RBC) [Entitic mass] 27.7 pg Normal 27.0 - 32.0 pg [facility].; [place] [employer], [facility]. MCHC (RBC) [Mass/Vol] 31.8 g/dL Abnormal 32 - 36 g/dL [facility], [facility].; [place] [employer], [facility]. MCV (RBC) [Entitic vol] 87.2 fL Normal 81 - 99 fL [facility] [employer].; [employer]. Monocytes/100 WBC (Bld) 9.9 % Normal 0 - 10 [facility].; [employer] Neutrophils/100 WBC (Bld) 56.2 % Normal 47 - 70 [employer]; [employer]. Nucleated RBC (Bld) [#/Vol] 0 10*3/uL Normal 0 - 5 [employer]; [employer] Platelet mean volume (Bld) [Entitic vol] 10.0 fL Normal 6.2 - 12.0 fL [employer].; [employer] Platelets (Bld) [#/Vol] 284 10*3/uL Normal 150 - 450 K/mm3 [employer]; [employer], [employer] RBC (Bld) [#/Vol] 4.84 10*6/uL Normal 4.2 - 5.4 {M/mm3} [employer]; [employer] WBC (Bld) [#/Vol] 5.9 10*3/uL Normal 4.4 - 11.0 K/mm3 [employer]; [employer] No Panel Informationon 07-04 Absolute Lymph 1.28 {X10_3/uL} Normal 0.83 - 4.5 1 {X10_3/uL} [employer].; [employer] Absolute Neut 3.3 {X10_3/uL} Normal 2.0 - 7.7 {X10_3/uL} [employer]; [employer]. ALK P 116 U/L Normal 45 - 117 U/L [employer].; [employer]. BUN/CRE 17.5 {RATIO} Normal 10 - 20 {RATIO} [employer].; [employer]. EST GFR - AA 82 mL/min Normal [employer].; [employer]. GAP 6 Normal 5 - 15 [employer]; [employer]. IG% 0.200 Normal 0.0 - 0.9 [facility]; [facility] RDW SD 42.1 fL Normal 35.1 - 43.9 fL [facility]; [facility] T PROT 7.3 g/dL Normal 6.4 - 8.2 g/dL [facility]; [facility] TSH 3.000 {uIU/mL} Normal 0.358 - 3.740 {uIU/mL} [facility]; [facility] Basophil percentageOrdered B y: Lauro Angeles on 06-18-2023 Bilirubin [Mass/Vol] 0.30 mg/dL Normal 0.20 - 1.00 mg/dL [facility] Comment on above: For patients on eltr ombopag therapy, use of Dimension [place] TBIL is not recommended. Chloride [Moles/Vol] 111 mmol/L Abnormal 98 - 10 7 mmol/L [facility] Cholesterol [Mass/Vol] 180 mg/dL Normal [facility] Comment on above: <200 mg/dL Desirable 200-240 mg/dL Borderline >240 mg/dL High Risk Glucose [Mass/Vol] 101 mg/dL Normal 74 - 106 mg/dL [facility] Comment on above: Fasting Glucose resu lt from 100 to 125 mg/dL suggests IMPAIRED HOMEOSTASIS per A.D.A. criteria. Potassium [Moles/Vol] 4.2 mmol/L Normal 3.5 - 5.1 mmol/L [facility] Protein [Mass/Vol] 7.4 g/dL 6.4-8.2 [facility] Sodium [Moles/Vol] 142 mmol/L Normal 136 - 145 mmol/L [facility] Triglyceride [Mass/Vol] 89 mg/dL Normal [facility] Comment on above: The drugs N-Acetylcy steine and Metamizole may falsely depress this assay.Serum Triglycerides Reference Interval Normal <150 mg/dL Borderline high 150 - 199 mg/dL High 200 - 499 mg/dL Very High > or = 500 mg/dL Laboratory - Chemistry and C hemistry - challengeon 06-18-2023 AST [Catalytic activity/Vol] 15 U/L Normal 15 - 37 U/L [facility]; [employer] GFR/1.73 sq M.predicted among non-blacks MDRD (S/P/Bld) [Vol rate/Area] 70 mL/min/{1.73_m2} Normal [employer].; [employer] Magnesium [Mass/Vol] 8.9 mg/dL Normal 8.5 - 1 0.1 mg/dL [employer] [facility].; [employer], [employer]. Laboratory - Chemistry and C hemistry - challengeOrdered By: Lauro Angeles on 06-18-2023 ALP [Catalytic activity/Vol] 107 U/L 45-117 [facility] ALT [Catalytic activity/Vol] 20 U/L Normal 13 - 56 U/L [facility] CO2 [Moles/Vol] 25.0 mmol/L Normal 21.0 - 32.0 mmol/L [facility] Globulin (S) [Mass/Vol] 4.1 g/dL Normal 2.2 - 4.2 g/dL [facility] Urea nitrogen/Creatinine [Mass ratio] 14.6 mg/mg - [facility] No Panel Informationon 06-18 ALK P 107 U/L Normal 45 - 117 U/L [place] [employer] [facility] Hospital[facility].; [employer], [employer] BUN/CRE 14.6 {RATIO} Normal 10 - 20 {RATIO} [employer]; [employer] EST GFR - AA 85 mL/min Normal [place] [employer].; [employer], [employer]. GAP 6 Normal 5 - 15 [employer]; [employer] T PROT 7.4 g/dL Normal 6.4 - 8.2 g/dL [employer]; [employer] No Panel InformationOrdered By: Lauro Angeles on 06-18-2023 Estimated GFR (MDRD) Amer 85 mL/min >60 [facility] Comment on above: GFR Calc Estimated GFR (MDRD) Non-Af Amer 70 mL/min >60 [facility] Comment on above: Non- GFR Calc Serum or plasma albumin bar urement (mass/volume)Ordered By: Lauro Angeles on 06-18-2023 Albumin [Mass/Vol] 3.3 g/dL Normal 3.2 - 5.0 g/dL [facility] Serum or plasma albumin/glob ulin mass ratioOrdered By: Lauro Angeles on 06-18-2023 Albumin/Globulin [Mass ratio] 0.8 {ratio} Abnormal 0.9 - 2.4 {RATIO} [facility] Serum or plasma calcium bar urement (mass/volume)Ordered By: Lauro Angeles on 06-18-2023 Calcium [Mass/Vol] 8.9 mg/dL 8.5-10.1 [facility] Serum or plasma cholesterol in HDL measurement (mass/volume)Ordered By: Lauro Angeles on 06-18-2023 Cholesterol in HDL [Mass/Vol] 41 mg/dL Normal [facility] Comment on above: The drugs N-Acetylcy steine and Metamizole may falsely depress this assay. Reference Range HDL <40 mg/dL Low HDL Cholesterol HDL >or= 60 mg/dL High HDL Cholesterol Serum or plasma cholesterol in VLDL measurement (mass/volume)Ordered By: Lauro Angeles on 06-18-2023 Cholesterol in VLDL [Mass/Vol] 18 mg/dL Normal 5 - 40 mg/dL [facility] Serum or plasma creatinine m easurement (mass/volume)Ordered By: Lauro Angeles on 06-18-2023 Creatinine [Mass/Vol] 0.89 mg/dL Normal 0.55 - 1.02 mg/dL [facility] Comment on above: The validity of the calculated GFR & GFRAA in patients over 70 years has not been determined. Clinical correlation is essential. Serum or plasma low density lipoprotein (LDL) cholesterol measurement (mass/volume)Ordered By: Lauro Angeles on 06-18-2023 Cholesterol in LDL [Mass/Vol] 121 mg/dL Normal 0 - 130 mg/dL [facility] Serum or plasma urea nitroge n measurement (mass/volume)Ordered By: Lauro Angeles 06-18-2023 Urea nitrogen [Mass/Vol] 13 mg/dL Normal 7 - 18 mg/dL [facility] Thin prep Papanicolaou smear with manual screeningOrdered By: Lauro Angeles 06-18-2023 Thin prep Papanicolaou smear with manual screening 15 U/L 15-37 [facility] Thin prep Papanicolaou smear with manual screening 6 5-15 [facility] Basophil percentageon 2021 Bilirubin [Mass/Vol] 0.40 mg/dL Normal 0.20 - 1.00 mg/dL [facility], [facility].; [employer] [facility] Comment on above: For patients on eltr ombopag therapy, use of Dimension [place] TBIL is not recommended. Chloride [Moles/Vol] 108 mmol/L Abnormal 98 - 10 7 mmol/L [facility], [facility].; [employer] Cholesterol [Mass/Vol] 196 mg/dL Normal [facility].; [employer] Comment on above: <200 mg/dL Desirable 200-240 mg/dL Borderline >240 mg/dL High Risk Glucose [Mass/Vol] 95 mg/dL Normal 74 - 106 mg/dL [facility], [facility].; [employer] Potassium [Moles/Vol] 4.0 mmol/L Normal 3.5 - 5.1 mmol/L [facility], [facility].; [employer] Protein [Mass/Vol] 7.5 g/dL 6.4-8.2 [facility] Work Phone: Sodium [Moles/Vol] 138 mmol/L Normal 136 - 145 mmol/L [facility], [facility].; [employer] Triglyceride [Mass/Vol] 177 mg/dL Normal [facility].; [employer], [employer] Comment on above: The drugs N-Acetylcy steine and Metamizole may falsely depress this assay.Serum Triglycerides Reference Interval Normal <150 mg/dL Borderline high 150 - 199 mg/dL High 200 - 499 mg/dL Very High > or = 500 mg/dL Laboratory - Chemistry and C hemistry - challengeon 07-28-2022 AST [Catalytic activity/Vol] 20 U/L Normal 15 - 37 U/L [facility], [employer].; [employer] GFR/1.73 sq M.predicted among non-blacks MDRD (S/P/Bld) [Vol rate/Area] 71 mL/min/{1.73_m2} Normal [facility].; [employer] Magnesium [Mass/Vol] 9.1 mg/dL Normal 8.5 - 1 0.1 mg/dL [place] [employer] ALP [Catalytic activity/Vol] 108 U/L 45-117 [facility] Work Phone: ALT [Catalytic activity/Vol] 21 U/L Normal 13 - 56 U/L [place] [employer] [place] [employer]. CO2 [Moles/Vol] 26.0 mmol/L Normal 21.0 - 32.0 mmol/L [place] [employer].; [employer] Globulin (S) [Mass/Vol] 4.2 g/dL Normal 2.2 - 4.2 g/dL [place] [employer].; [employer], [employer] Urea nitrogen/Creatinine [Mass ratio] 13.5 mg/mg 10-20 [facility] Work Phone: No Panel Informationon 07-28 ALK P 108 U/L Normal 45 - 117 U/L [facility] [employer] BUN/CRE 13.5 {RATIO} Normal 10 - 20 {RATIO} [place] [employer] EST GFR - AA 86 mL/min Normal [place] [employer] [facility].; [employer] GAP 4 Abnormal 5 - 15 [place] [employer].; [employer] T PROT 7.5 g/dL Normal 6.4 - 8.2 g/dL [place] [employer].; [employer] Estimated GFR (MDRD) Amer 86 mL/min >60 [facility] Work Phone: Comment on above: GFR Calc Estimated GFR (MDRD) Non-Af Amer 71 mL/min >60 [facility] Work Phone: Comment on above: Non- GFR Calc Serum or plasma albumin bar urement (mass/volume)on 07-28-2022 Albumin [Mass/Vol] 3.3 g/dL Normal 3.2 - 5.0 g/dL [place] [employer].; [employer]. Serum or plasma albumin/glob ulin mass ratioon 07-28-2022 Albumin/Globulin [Mass ratio] 0.8 {ratio} Abnormal 0.9 - 2.4 {RATIO} [facility].; [place] [employer] [facility]. Serum or plasma calcium bar urement (mass/volume)on 07-28-2022 Calcium [Mass/Vol] 9.1 mg/dL 8.5-10.1 [facility] Work Phone: Serum or plasma cholesterol in HDL measurement (mass/volume)on 07-28-2022 Cholesterol in HDL [Mass/Vol] 39 mg/dL Abnormal [place] [employer] [facility].; [employer] Comment on above: The drugs N-Acetylcy steine and Metamizole may falsely depress this assay. Reference Range HDL <40 mg/dL Low HDL Cholesterol HDL >or= 60 mg/dL High HDL Cholesterol Serum or plasma cholesterol in VLDL measurement (mass/volume)on 07-28-2022 Cholesterol in VLDL [Mass/Vol] 35 mg/dL Normal 5 - 40 mg/dL [facility].; [employer] Serum or plasma creatinine m easurement (mass/volume)on 07-28-2022 Creatinine [Mass/Vol] 0.89 mg/dL Normal 0.55 - 1.02 mg/dL [facility].; [employer] Comment on above: The validity of the calculated GFR & GFRAA in patients over 70 years has not been determined. Clinical correlation is essential. Serum or plasma low density lipoprotein (LDL) cholesterol measurement (mass/volume)on 07-28-2022 Cholesterol in LDL [Mass/Vol] 122 mg/dL Normal 0 - 130 mg/dL [facility].; [employer] Serum or plasma urea nitroge n measurement (mass/volume)on 07-28-2022 Urea nitrogen [Mass/Vol] 12 mg/dL Normal 7 - 18 mg/dL [facility].; [employer], [employer]. Thin prep Papanicolaou smear with manual screeningon 07-28-2022 Thin prep Papanicolaou smear with manual screening 20 U/L 15-37 [facility] Work Phone: Thin prep Papanicolaou smear with manual screening 4 5-15 [facility] Work Phone: No Panel Informationon 04-24 Hepatitis B Surface Antibody Reactive [facility] Work Phone: Comment on above: Non Reactive: Incons istent with immunity less than <10 mIU/mL Reactive: Consistent with immunity greater than or equal to 10 mIU/mL SHOULDER COMPLETE RTon 11-18 SHOULDER COMPLETE RT [address] [address] Patient: YUKI GUAMAN Phone#: : 1970 Age: 51 Gender: F Pt. Type: Out Account: [id number] Location: Ordering: [facility] Exam Date: 11/18/2021/14:36 Family Phys: Charge Code: [id number] Physician: Trigg Order #: [id number] DLP Dose#: PROCEDURE: X-RAY SHOULDER COMPLETE RT [...] Wright MD on 11/18/2021 at 20:25 Normal [facility] 3D MAMM BILAT SCREENon 07-18 3D MAMM BILAT SCREEN [address] [address] Patient: YUKI GUAMAN Phone#: : 1970 Age: 51 Gender: F Pt. Type: Out Account: [id number] Location: Ordering: [facility] Exam Date: 07/18/2021/8:14 Family Phys: Charge Code: [id number] Physician: Trigg Order #: [id number] DLP Dose#: PROCEDURE: BILATERAL SCREENING BREAST TOMOSYNTHESIS MAMMOGRAM WITH CAD COMPARISON: [facility], BILAT SCREENING, 10/29/2017, 7:59. [facility], BILAT SCREENING, 08/09/2019, 15:07. INDICATIONS: screening BREAST [...] Wright MD on 07/18/2021 at 10:24 Normal [facility] CMP with eGFRon 06-15-2021 AGE 51 years Normal [facility] Comment on above: Performed By: #### 2 [id number] #### [facility],[address] [place] [address] Albumin [Mass/Vol] 3.4 g/dL Normal 3.4 - 5.0 g/dL [facility] Comment on above: Performed By: #### 2 86035 #### [facility],[address] [place] [address] Albumin/Globulin [Mass ratio] 0.8 {ratio} Low 0.9 - 1.6 [facility] Comment on above: Performed By: #### 2 [id number] #### [facility],[address] [place] [address] ALK PHOS 89 U/L Normal 46 - 116 [facility] Comment on above: Performed By: #### 2 93357 #### [place] [address] ALT [Catalytic activity/Vol] 20 U/L Normal 14 - 59 U/L [facility], [facility].; [facility], [facility]. Comment on above: Performed By: #### 2 [id number] #### [place] [address] Anion gap [Moles/Vol] 13 mmol/L Normal 10 - 2 0 mmol/L [facility], [facility].; [facility], [facility] Comment on above: Performed By: #### 2 43839 #### [place] [address] AST [Catalytic activity/Vol] 17 U/L Normal 13 - 39 U/L [facility], [facility].; [facility], [facility] Comment on above: Performed By: #### 2 38111 #### [place] [address] B/C RATIO 14 ratio Normal 0 - 30 [facility] Comment on above: Performed By: #### 2 58162 #### [place] [address] Bilirubin [Mass/Vol] 0.4 mg/dL Normal 0.2 - 1 .0 mg/dL [facility], [facility].; [facility], [facility] Comment on above: Performed By: #### 2 81004 #### [place] [address] Calcium [Mass/Vol] 8.6 mg/dL Normal 8.5 - 10. 1 mg/dL [facility], [facility].; [facility], [employer]. Comment on above: Performed By: #### 2 81296 #### [place] [address] Chloride [Moles/Vol] 105 mmol/L Normal 98 - 10 7 mmol/L [facility], [facility].; [facility], [employer]. Comment on above: Performed By: #### 2 35104 #### [facility],[address] [place] [address] CMP with eGFR Normal [facility] Comment on above: Result Comment: COMP REHENSIVE METABOLIC PANEL Performed By: #### 2 60969 #### [facility],[address] [place] [address] CO2 [Moles/Vol] 25.3 mmol/L Normal 21.0 - 32.0 mmol/L [facility], [facility].; [facility], [facility]. Comment on above: Performed By: #### 2 02558 #### [place] [address] Creatinine [Mass/Vol] 0.76 mg/dL Normal 0.55 - 1.02 mg/dL [facility], [facility].; [facility], [facility]. Comment on above: Performed By: #### 2 66074 #### [place] [address] GFR/1.73 sq M.predicted among non-blacks MDRD (S/P/Bld) [Vol rate/Area] mL/min/{1.73_m2} Normal 60 - 999 [facility] Comment on above: Performed By: #### 2 57058 #### [place] [address] Result Comment: ACCO RDING TO THE NATIONAL KIDNEY DISEASE EDUCATION PROGRAM(NKDE), A NORMAL eGFR IS A VALUE GREATER THAN OR EQUAL TO 60 ML/MIN/1.73 SQ METERS. CHRONIC KIDNEY DISEASE: <60mL/MIN/1.73 SQ METERS KIDNEY FAILURE: <15mL/MIN/1.73 SQ METERS THIS TEST SHOULD ONLY BE USED FOR PATIENTS 18 YEARS OF AGE AND OLDER. Globulin (S) [Mass/Vol] 4.1 g/dL Abnormal 1.5 - 3.8 g/dL [facility] Comment on above: Performed By: #### 2 60515 #### [place] [id number] Glucose [Mass/Vol] 96 mg/dL Normal 74 - 106 mg/dL [facility], [facility].; [facility], [facility]. Comment on above: Performed By: #### 2 64544 #### [place] [address] Potassium [Moles/Vol] 4.1 mmol/L Normal 3.5 - 5.1 mmol/L [facility], [facility].; [facility], [facility] Comment on above: Performed By: #### 2 85898 #### [place] [address] Protein [Mass/Vol] 7.5 g/dL Normal 6.4 - 8.2 g/dL [facility], [facility].; [facility], [facility] Comment on above: Performed By: #### 2 10145 #### [place] [id number] Sodium [Moles/Vol] 139 mmol/L Normal 136 - 145 mmol/L [facility], [facility].; [facility], [facility]. Comment on above: Performed By: #### 2 57094 #### [place] [id number] Urea nitrogen [Mass/Vol] 11 mg/dL Normal 7 - 18 mg/dL [facility] Comment on above: Performed By: #### 2 70556 #### [address] [address] LIPID PROFILEon 06-15-2021 Cholesterol [Mass/Vol] 205 mg/dL Normal 0 - 240 mg/dL [facility], [facility].; [facility], [facility]. Comment on above: Performed By: #### 2 02171 #### [place] [id number] Cholesterol in HDL [Mass/Vol] 44 mg/dL Normal 40 - 60 [facility] Comment on above: Performed By: #### 2 54215 #### [facility],[address] [place] [address] Cholesterol in LDL [Mass/Vol] 140 mg/dL Abnormal 0 - 129 mg/dL [facility], [facility].; [facility], [facility]. Comment on above: Performed By: #### 2 09366 #### [place] [address] Cholesterol.total/Nuzhat sterol in HDL [Mass ratio] 4.7 {ratio} Normal 0.0 - 5.0 [facility], [facility].; [facility], [facility]. Comment on above: Performed By: #### 2 08646 #### [place] [address] Lipid 1996 panel Normal [facility] Comment on above: Result Comment: LIPI D PROFILE Performed By: #### 2 68664 #### [place] [address] Triglyceride [Mass/Vol] 103 mg/dL Normal 0 - 150 mg/d L [facility], [facility].; [facility], [facility]. Comment on above: Performed By: #### 2 02849 #### [place] [address] Laboratory - Chemistry and C hemistry - challengeon 06-15-2021 Albumin [Mass/Vol] 0.8 g/dL Abnormal 0.9 - 1.6 [facility], [facility].; [facility], [facility] ALP [Catalytic activity/Vol] 89 U/L Normal 46 - 116 U/L [facility], [facility].; [facility], [facility] ALT No additional P-5'-P [Catalytic activity/Vol] 20 U/L Normal 14 - 59 U/L [facility], [facility].; [facility], [facility] Cholesterol in HDL [Mass or moles/Vol] 44 mg/dL Normal 40 - 60 mg/dL [facility], [facility].; [facility], [facility]. Comprehensive metabolic 2000 panel CMP with eGFR Normal [facility].; [facility], [facility]. GFR/1.73 sq M.predicted among blacks MDRD (S/P/Bld) [Vol rate/Area] mL/min/{1.73_m2} Normal 60 - 999 {ML/MINUTE} [facility].; [employer] [facility]. GFR/1.73 sq M.predicted MDRD (S/P/Bld) [Vol rate/Area] mL/min/{1.73_m2} Normal 60 - 999 {ML/MINUTE} [employer]; [employer] Lipid 1996 panel LIPID PROFILE Normal [facility] [employer] [facility].; [employer] Urea nitrogen/Creatinine [Mass ratio] 14 {ratio} Normal 0 - 30 {ratio} [employer]; [employer] No Panel Informationon 06-15 AGE 51 {years} Normal [employer]; [employer] CULTURE, URINE, ROUTINEon CULTURE, URINE, ROUTINE SEE NOTE Normal [facility] Comment on above: Result Comment: CULTURE, URINE, ROUTINE Micro Number: [id number] Test Status: Final Specimen Source: URINE Specimen Quality: Adequate Result: Growth of mixed emelyn was isolated, suggesting probable contamination. No further testing will be performed. If clinically indicated, recollection using a method to minimize contamination, with prompt transfer to Urine Culture Transport Tube, is recommended. Performed By: #### 3 95 #### [facility] [address], [address] [place] [id number] Rope Cleaner: Pedrito Robert MD Laboratory - Chemistry and C hemistry - challengeon 11-16-2020 Bilirubin Ql (U) Negative Normal [facility].; [employer]. Ketones Ql (U) Negative Normal [facility] Center[facility].; [employer] [place] [employer], [employer]. pH (U) 5.5 [pH] Normal [employer].; [employer] [place] [employer], [employer]. Specific gravity (U) [Rel density] 1.025 Normal [employer].; [employer] [place] [employer], [employer]. Urobilinogen Qn (U) 0.2 mg/dL Normal [employer].; [employer]. Laboratory - Specimen inform ationon 11-16-2020 Appearance (U) cloudy Abnormal [facility] [employer]; [employer] Color (U) yellow Normal [place] [employer]; [employer] Laboratory - Urinalysison Glucose Test strip (U) [Mass/Vol] Negative Normal [place] [employer].; [employer]. Leukocyte esterase Test strip Ql (U) small Abnormal [place] [employer].; [employer]. Nitrite Ql (U) Negative Normal [facility].; [employer]. Protein Ql (U) Negative Normal [facility]; [employer] No Panel Informationon 11-16 CULTURE, URINE, ROUTINE SEE NOTE Normal [facility] [employer]; [employer]. Laboratory - Hematology and Cell countson 07-19-2020 Hemoglobin (Bld) [Mass/Vol] 13 g/dL Normal 11.5 - 14.2 g/dL [place] [employer].; [employer]. Laboratory - Chemistry and C hemistry - challengeon 06-21-2020 Albumin [Mass/Vol] 3.8 g/dL Normal 3.4 - 4.8 g/dL [place] [employer].; [employer]. Albumin [Mass/Vol] 1.2 g/dL Normal 0.9 - 1.6 [place] [employer].; [employer] ALP [Catalytic activity/Vol] 82 U/L Normal 38 - 126 U/L [place] [employer].; [employer]. ALT [Catalytic activity/Vol] 11 U/L Normal 8 - 35 U/L [employer]; [employer] ALT No additional P-5'-P [Catalytic activity/Vol] 11 U/L Normal 8 - 35 U/L [place] [employer].; [employer]. Anion gap [Moles/Vol] 11 mmol/L Normal 10 - 2 0 mmol/L [employer]; [employer]. AST [Catalytic activity/Vol] 15 U/L Normal 13 - 39 U/L [facility], [facility] Bilirubin [Mass/Vol] 0.3 mg/dL Normal 0.0 - 1 .5 mg/dL [facility].; [facility], [facility]. Calcium [Mass/Vol] 8.9 mg/dL Normal 8.6 - 10. 2 mg/dL [facility].; [facility], [facility] Chloride [Moles/Vol] 107 mmol/L Normal 98 - 10 7 mmol/L [facility].; [facility], [facility] Cholesterol [Mass/Vol] 209 mg/dL Abnormal 0 - 200 mg/dL [facility]; [facility], [facility]. Cholesterol in HDL [Mass or moles/Vol] 40 mg/dL Normal 40 - 60 mg/dL [facility]; [facility], [facility] Cholesterol in LDL [Mass/Vol] 155 mg/dL Abnormal 0 - 129 mg/dL [facility].; [facility], [facility] Cholesterol.total/Nuzhat sterol in HDL [Mass ratio] 5.2 {ratio} Abnormal 0.0 - 5.0 [facility]; [facility], [facility] CO2 [Moles/Vol] 22.7 mmol/L Normal 21.0 - 31.0 mmol/L [facility].; [facility], [facility] Comprehensive metabolic 2000 panel CMP with eGFR Normal [facility]; [facility], [facility] Creatinine [Mass/Vol] 0.8 mg/dL Normal 0.6 - 1.2 mg/dL [facility].; [facility], [facility]. GFR/1.73 sq M.predicted among blacks MDRD (S/P/Bld) [Vol rate/Area] mL/min/{1.73_m2} Normal 60 - 999 {ML/MINUTE} [facility], [facility].; [facility], [facility]. GFR/1.73 sq M.predicted MDRD (S/P/Bld) [Vol rate/Area] mL/min/{1.73_m2} Normal 60 - 999 {ML/MINUTE} [facility], [employer].; [facility] Globulin (S) [Mass/Vol] 3.3 g/dL Normal 1.5 - 3.8 g/dL [facility].; [place] [employer]. Glucose [Mass/Vol] 91 mg/dL Normal 74 - 106 mg/dL [facility].; [employer] Lipid 1996 panel LIPID PROFILE Normal [facility].; [place] [employer] [facility] HospitalTelespree Potassium [Moles/Vol] 4.0 mmol/L Normal 3.5 - 5.1 mmol/L [facility].; [place] [employer] Protein [Mass/Vol] 7.1 g/dL Normal 6.4 - 8.3 g/dL [facility].; [place] [employer]. Sodium [Moles/Vol] 137 mmol/L Normal 136 - 145 mmol/L [facility].; [place] [employer]. Triglyceride [Mass/Vol] 71 mg/dL Normal 0 - 150 mg/d L [place] [employer] [facility] Hospital[facility].; [employer] Urea nitrogen [Mass/Vol] 17 mg/dL Normal 6 - 20 mg/dL [place] [employer].; [employer] Urea nitrogen/Creatinine [Mass ratio] 21 {ratio} Normal 0 - 30 {ratio} [place] [employer].; [employer] No Panel Informationon 06-21 AGE 50 {years} Normal [facility].; [employer] Laboratory - Chemistry and C hemistry - challengeon 07-02-2019 Albumin [Mass/Vol] 3.7 g/dL Normal 3.4 - 4.8 g/dL [place] [employer] [facility] HospitalMy[facility].; [employer]. Albumin [Mass/Vol] 1.1 g/dL Normal 0.9 - 1.6 [place] [employer].; [employer] ALP [Catalytic activity/Vol] 67 U/L Normal 38 - 126 U/L [place] [employer] [facility].; [employer] ALT [Catalytic activity/Vol] 8 U/L Normal 8 - 35 U/L [place] [employer].; [employer] ALT No additional P-5'-P [Catalytic activity/Vol] 8 U/L Normal 8 - 35 U/L [facility].; [facility], [facility]. Anion gap [Moles/Vol] 11 mmol/L Normal 10 - 2 0 mmol/L [facility].; [facility], [facility]. AST [Catalytic activity/Vol] 13 U/L Normal 13 - 39 U/L [facility].; [facility], [facility] Bilirubin [Mass/Vol] 0.3 mg/dL Normal 0.0 - 1 .5 mg/dL [facility].; [facility], [facility] Calcium [Mass/Vol] 8.7 mg/dL Normal 8.6 - 10. 2 mg/dL [facility].; [facility], [facility]. Chloride [Moles/Vol] 107 mmol/L Normal 98 - 10 7 mmol/L [facility].; [facility], [facility] Cholesterol [Mass/Vol] 154 mg/dL Normal 0 - 200 mg/dL [facility].; [facility], [facility]. Cholesterol in HDL [Mass or moles/Vol] 36 mg/dL Abnormal 40 - 60 mg/dL [facility].; [facility], [facility]. Cholesterol in LDL [Mass/Vol] 101 mg/dL Normal 0 - 129 mg/dL [facility].; [facility], [facility]. Cholesterol.total/Nuzhat sterol in HDL [Mass ratio] 4.3 {ratio} Normal 0.0 - 5.0 [facility].; [facility], [facility]. CO2 [Moles/Vol] 25.6 mmol/L Normal 21.0 - 31.0 mmol/L [facility].; [facility], [facility]. Comprehensive metabolic 2000 panel CMP with eGFR Normal [facility]; [facility], [facility] Creatinine [Mass/Vol] 0.8 mg/dL Normal 0.6 - 1.2 mg/dL [facility].; [facility], [facility]. GFR/1.73 sq M.predicted among blacks MDRD (S/P/Bld) [Vol rate/Area] mL/min/{1.73_m2} Normal 60 - 999 {ML/MINUTE} [facility].; [place] [employer] [facility] HospitalTelespree. GFR/1.73 sq M.predicted MDRD (S/P/Bld) [Vol rate/Area] mL/min/{1.73_m2} Normal 60 - 999 {ML/MINUTE} [facility], [facility].; [place] [employer], [employer]. Globulin (S) [Mass/Vol] 3.3 g/dL Normal 1.5 - 3.8 g/dL [facility].; [place] [employer], [employer]. Glucose [Mass/Vol] 88 mg/dL Normal 74 - 106 mg/dL [facility].; [employer] Lipid 1996 panel LIPID PROFILE Normal [facility].; [place] [employer] [facility], [employer]. Potassium [Moles/Vol] 4.2 mmol/L Normal 3.5 - 5.1 mmol/L [facility].; [place] [employer], [employer]. Protein [Mass/Vol] 7.0 g/dL Normal 6.4 - 8.3 g/dL [facility].; [employer], [employer]. Sodium [Moles/Vol] 139 mmol/L Normal 136 - 145 mmol/L [facility].; [place] [employer], [employer]. Triglyceride [Mass/Vol] 83 mg/dL Normal 0 - 150 mg/d L [place] [employer] [facility].; [employer], [employer]. Urea nitrogen [Mass/Vol] 12 mg/dL Normal 6 - 20 mg/dL [facility].; [employer], [employer]. Urea nitrogen/Creatinine [Mass ratio] 15 {ratio} Normal 0 - 30 {ratio} [facility].; [employer] No Panel Informationon 07-02 AGE 49 {years} Normal [place] [employer] [facility] Hospital[facility]ree.; [employer] Laboratory - Chemistry and C hemistry - challengeon 07-03-2018 Albumin [Mass/Vol] 3.9 g/dL Normal 3.4 - 4.8 g/dL [facility].; [employer], [employer]. Albumin [Mass/Vol] 1.1 g/dL Normal 0.9 - 1.6 [facility].; [employer] ALP [Catalytic activity/Vol] 71 U/L Normal 38 - 126 U/L [facility].; [facility]. ALT [Catalytic activity/Vol] 9 U/L Normal 8 - 35 U/L [facility].; [facility], [facility]. ALT No additional P-5'-P [Catalytic activity/Vol] 9 U/L Normal 8 - 35 U/L [facility].; [facility] [facility]. Anion gap [Moles/Vol] 11 mmol/L Normal 10 - 2 0 mmol/L [facility]. AST [Catalytic activity/Vol] 12 U/L Abnormal 13 - 39 U/L [facility].; [facility], [facility]. Bilirubin [Mass/Vol] 0.4 mg/dL Normal 0.0 - 1 .5 mg/dL [facility].; [facility], [facility]. Calcium [Mass/Vol] 9.0 mg/dL Normal 8.6 - 10. 2 mg/dL [facility].; [facility]. Chloride [Moles/Vol] 108 mmol/L Abnormal 98 - 10 7 mmol/L [facility].; [facility]. Cholesterol [Mass/Vol] 169 mg/dL Normal 0 - 200 mg/dL [facility].; [facility], [facility]. Cholesterol in HDL [Mass or moles/Vol] 37 mg/dL Abnormal 40 - 60 mg/dL [facility].; [facility], [facility]. Cholesterol in LDL [Mass/Vol] 115 mg/dL Normal 0 - 129 mg/dL [facility].; [facility], [facility]. Cholesterol.total/Nuzhat sterol in HDL [Mass ratio] 4.6 {ratio} Normal 0.0 - 5.0 [facility].; [facility], [facility]. CO2 [Moles/Vol] 23.1 mmol/L Normal 21.0 - 31.0 mmol/L [facility].; [facility], [facility] Comprehensive metabolic 2000 panel CMP with eGFR Normal [facility]; [facility]. Creatinine [Mass/Vol] 0.8 mg/dL Normal 0.6 - 1.2 mg/dL [facility].; [employer], [employer]. GFR/1.73 sq M.predicted among blacks MDRD (S/P/Bld) [Vol rate/Area] mL/min/{1.73_m2} Normal 60 - 999 {ML/MINUTE} [facility].; [place] [employer], [facility]. GFR/1.73 sq M.predicted MDRD (S/P/Bld) [Vol rate/Area] mL/min/{1.73_m2} Normal 60 - 999 {ML/MINUTE} [place] [employer], [employer].; [employer], [employer]. Globulin (S) [Mass/Vol] 3.4 g/dL Normal 1.5 - 3.8 g/dL [place] [employer] [facility].; [employer], [employer]. Glucose [Mass/Vol] 98 mg/dL Normal 74 - 106 mg/dL [place] [employer].; [employer] Lipid 1996 panel LIPID PROFILE Normal [facility] [employer] [facility].; [employer], [employer]. Potassium [Moles/Vol] 3.9 mmol/L Normal 3.5 - 5.1 mmol/L [place] [employer].; [employer], [employer]. Protein [Mass/Vol] 7.3 g/dL Normal 6.4 - 8.3 g/dL [place] [employer] [facility], [facility].; [employer], [employer]. Sodium [Moles/Vol] 138 mmol/L Normal 136 - 145 mmol/L [place] [employer].; [employer], [employer]. Triglyceride [Mass/Vol] 84 mg/dL Normal 0 - 150 mg/d L [place] [employer].; [employer], [employer]. Urea nitrogen [Mass/Vol] 12 mg/dL Normal 6 - 20 mg/dL [employer]; [employer], [employer]. Urea nitrogen/Creatinine [Mass ratio] 15 {ratio} Normal 0 - 30 {ratio} [employer]; [employer], [employer]. No Panel Informationon 07-03 AGE 48 {years} Normal [employer]; [employer], [employer]. Laboratory - Chemistry and C hemistry - challengeon 07-02-2017 TSH Qn 2.15 m[IU]/L Normal 0.34 - 5.60 {uIU/ml} [facility].; [facility]. Laboratory - Chemistry and C hemistry - challengeon 06-25-2017 Albumin [Mass/Vol] 3.8 g/dL Normal 3.4 - 4.8 g/dL [facility].; [facility] Albumin [Mass/Vol] 1.2 g/dL Normal 0.9 - 1.6 [facility].; [facility]. ALP [Catalytic activity/Vol] 77 U/L Normal 38 - 126 U/L [facility].; [facility]. ALT [Catalytic activity/Vol] 11 U/L Normal 8 - 35 U/L [facility].; [facility], [facility]. ALT No additional P-5'-P [Catalytic activity/Vol] 11 U/L Normal 8 - 35 U/L [facility].; [place] [employer] [facility]. Anion gap [Moles/Vol] 13 mmol/L Normal 10 - 2 0 mmol/L [facility].; [facility]. AST [Catalytic activity/Vol] 15 U/L Normal 13 - 39 U/L [facility].; [place] [employer] [facility], [facility]. Bilirubin [Mass/Vol] 0.2 mg/dL Normal 0.0 - 1 .5 mg/dL [facility].; [facility], [facility]. Calcium [Mass/Vol] 8.8 mg/dL Normal 8.6 - 10. 2 mg/dL [facility].; [facility], [facility]. Chloride [Moles/Vol] 104 mmol/L Normal 98 - 10 7 mmol/L [facility].; [facility], [facility]. Cholesterol [Mass/Vol] 195 mg/dL Normal 0 - 200 mg/dL [facility], [facility].; [facility], [facility]. Cholesterol in HDL [Mass or moles/Vol] 36 mg/dL Abnormal 40 - 60 mg/dL [facility] BeachMy[facility].; [facility], [facility]. Cholesterol in LDL [Mass/Vol] 131 mg/dL Abnormal 0 - 129 mg/dL [facility].; [facility], [facility] Cholesterol.total/Nuzhat sterol in HDL [Mass ratio] 5.4 {ratio} Abnormal 0.0 - 5.0 [facility]; [facility], [facility] CO2 [Moles/Vol] 25.2 mmol/L Normal 21.0 - 31.0 mmol/L [facility]; [facility], [facility] Comprehensive metabolic 2000 panel CMP with eGFR Normal [facility]; [facility], [facility] Creatinine [Mass/Vol] 0.8 mg/dL Normal 0.6 - 1.2 mg/dL [facility]; [facility], [facility]. GFR/1.73 sq M.predicted among blacks MDRD (S/P/Bld) [Vol rate/Area] mL/min/{1.73_m2} Normal 60 - 999 {ML/MINUTE} [facility], [facility].; [facility], [facility]. GFR/1.73 sq M.predicted MDRD (S/P/Bld) [Vol rate/Area] mL/min/{1.73_m2} Normal 60 - 999 {ML/MINUTE} [facility], [facility].; [facility], [facility]. Globulin (S) [Mass/Vol] 3.3 g/dL Normal 1.5 - 3.8 g/dL [facility], [facility].; [facility], [facility]. Glucose [Mass/Vol] 90 mg/dL Normal 74 - 106 mg/dL [facility], [facility].; [facility], [facility]. Lipid 1996 panel LIPID PROFILE Normal [facility]; [facility], [facility] Potassium [Moles/Vol] 4.1 mmol/L Normal 3.5 - 5.1 mmol/L [facility]; [facility], [facility]. Protein [Mass/Vol] 7.1 g/dL Normal 6.4 - 8.3 g/dL [facility], [facility].; [facility], [facility] Sodium [Moles/Vol] 138 mmol/L Normal 136 - 145 mmol/L [facility].; [facility]. Triglyceride [Mass/Vol] 141 mg/dL Normal 0 - 150 mg/d L [place] [employer] [facility].; [employer] Urea nitrogen [Mass/Vol] 13 mg/dL Normal 6 - 20 mg/dL [place] [employer] [facility].; [place] [employer] Urea nitrogen/Creatinine [Mass ratio] 16 {ratio} Normal 0 - 30 {ratio} [place] [employer].; [employer] No Panel Informationon 06-25 AGE 47 {years} Normal [place] [employer].; [employer] Laboratory - Chemistry and C hemistry - challengeon 06-19-2016 Albumin [Mass/Vol] 3.9 g/dL Normal 3.4 - 4.8 g/dL [place] [employer] [facility].; [place] [employer] Albumin [Mass/Vol] 1.4 g/dL Normal 0.9 - 1.6 [place] [employer].; [employer] ALP [Catalytic activity/Vol] 72 U/L Normal 38 - 126 U/L [place] [employer].; [employer], [employer]. ALT [Catalytic activity/Vol] 17 U/L Normal 8 - 35 U/L [place] [employer].; [employer] ALT No additional P-5'-P [Catalytic activity/Vol] 17 U/L Normal 8 - 35 U/L [place] [employer].; [employer] Anion gap [Moles/Vol] 8 mmol/L Abnormal 10 - 2 0 mmol/L [place] [employer].; [employer] AST [Catalytic activity/Vol] 20 U/L Normal 13 - 39 U/L [place] [employer] [facility].; [employer] Bilirubin [Mass/Vol] 0.3 mg/dL Normal 0.0 - 1 .5 mg/dL [place] [employer].; [employer], [employer]. Calcium [Mass/Vol] 8.7 mg/dL Normal 8.6 - 10. 2 mg/dL [place] [employer].; [employer], [employer]. Chloride [Moles/Vol] 107 mmol/L Normal 98 - 10 7 mmol/L [place] [employer].; [facility]. Cholesterol [Mass/Vol] 175 mg/dL Normal 0 - 200 mg/dL [facility], [facility].; [facility], [facility]. Cholesterol in HDL [Mass or moles/Vol] 44 mg/dL Normal 40 - 60 mg/dL [facility].; [facility], [facility] Cholesterol in LDL [Mass/Vol] 115 mg/dL Normal 0 - 129 mg/dL [facility], [facility].; [facility], [facility] Cholesterol.total/Nuzhat sterol in HDL [Mass ratio] 4.0 {ratio} Normal 0.0 - 5.0 [facility]; [facility], [facility] CO2 [Moles/Vol] 24.0 mmol/L Normal 21.0 - 31.0 mmol/L [facility].; [facility], [facility] Comprehensive metabolic 2000 panel CMP with eGFR Normal [facility]; [facility], [facility] Creatinine [Mass/Vol] 0.8 mg/dL Normal 0.6 - 1.2 mg/dL [facility], [facility].; [facility], [facility]. GFR/1.73 sq M.predicted among blacks MDRD (S/P/Bld) [Vol rate/Area] mL/min/{1.73_m2} Normal 60 - 999 {ML/MINUTE} [facility], [facility].; [facility], [facility]. GFR/1.73 sq M.predicted MDRD (S/P/Bld) [Vol rate/Area] mL/min/{1.73_m2} Normal 60 - 999 {ML/MINUTE} [facility], [facility].; [facility], [facility]. Globulin (S) [Mass/Vol] 2.8 g/dL Normal 1.5 - 3.8 g/dL [facility], [facility].; [facility], [facility]. Glucose [Mass/Vol] 84 mg/dL Normal 74 - 106 mg/dL [facility], [facility].; [facility], [facility] Lipid 1996 panel LIPID PROFILE Normal [facility], [facility]; [facility], [facility] Potassium [Moles/Vol] 4.3 mmol/L Normal 3.5 - 5.1 mmol/L [facility].; [facility] Protein [Mass/Vol] 6.7 g/dL Normal 6.4 - 8.3 g/dL [place] [employer].; [employer] Sodium [Moles/Vol] 135 mmol/L Abnormal 136 - 145 mmol/L [place] [employer] [facility].; [employer], [employer]. Triglyceride [Mass/Vol] 82 mg/dL Normal 0 - 150 mg/d L [place] [employer].; [employer] Urea nitrogen [Mass/Vol] 11 mg/dL Normal 6 - 20 mg/dL [place] [employer].; [employer], [employer]. Urea nitrogen/Creatinine [Mass ratio] 14 {ratio} Normal 0 - 30 {ratio} [employer]; [employer], [employer]. No Panel Informationon 06-19 AGE 46 {years} Normal [place] [employer].; [employer] No Panel Informationon 07-12 PANEL NAME THIN PREP (QU) PAP WITH HPV REFLEX Normal [place] [employer].; [employer] Laboratory - Chemistry and C hemistry - challengeon 06-28-2015 Albumin [Mass/Vol] 4.0 g/dL Normal 3.4 - 4.8 g/dL [place] [employer].; [employer], [employer]. Albumin [Mass/Vol] 1.4 g/dL Normal 0.9 - 1.6 [place] [employer].; [employer], [employer]. ALP [Catalytic activity/Vol] 67 U/L Normal 38 - 126 U/L [place] [employer].; [employer] ALT [Catalytic activity/Vol] 10 U/L Normal 8 - 35 U/L [employer]; [employer], [employer]. ALT No additional P-5'-P [Catalytic activity/Vol] 10 U/L Normal 8 - 35 U/L [employer].; [employer], [employer]. Anion gap [Moles/Vol] 7 mmol/L Abnormal 10 - 2 0 mmol/L [employer].; [employer], [employer]. AST [Catalytic activity/Vol] 13 U/L Normal 13 - 39 U/L [employer] [employer].; [employer] Bilirubin [Mass/Vol] 0.4 mg/dL Normal 0.0 - 1 .5 mg/dL [facility].; [facility], [facility]. Calcium [Mass/Vol] 9.2 mg/dL Normal 8.6 - 10. 2 mg/dL [facility].; [facility], [facility] Chloride [Moles/Vol] 106 mmol/L Normal 98 - 10 7 mmol/L [facility].; [facility], [facility]. Cholesterol [Mass/Vol] 154 mg/dL Normal 0 - 200 mg/dL [facility].; [facility], [facility]. Cholesterol in HDL [Mass or moles/Vol] 38 mg/dL Abnormal 40 - 60 mg/dL [facility].; [facility], [facility] Cholesterol in LDL [Mass/Vol] 102 mg/dL Normal 0 - 129 mg/dL [facility], [facility].; [facility], [facility] Cholesterol.total/Nuzhat sterol in HDL [Mass ratio] 4.1 {ratio} Normal 0.0 - 5.0 [facility].; [facility], [facility] CO2 [Moles/Vol] 27.0 mmol/L Normal 13.0 - 29.0 mmol/L [facility].; [facility], [facility]. Comprehensive metabolic 2000 panel CMP with eGFR Normal [facility].; [facility], [facility] Creatinine [Mass/Vol] 0.8 mg/dL Normal 0.6 - 1.2 mg/dL [facility], [facility].; [facility], [facility]. GFR/1.73 sq M.predicted among blacks MDRD (S/P/Bld) [Vol rate/Area] mL/min/{1.73_m2} Normal 60 - 999 {ML/MINUTE} [facility], [facility].; [facility], [facility]. GFR/1.73 sq M.predicted MDRD (S/P/Bld) [Vol rate/Area] mL/min/{1.73_m2} Normal 60 - 999 {ML/MINUTE} [facility], [facility].; [facility], [facility]. Globulin (S) [Mass/Vol] 2.8 g/dL Normal 1.5 - 3.8 g/dL [facility].; [facility] Glucose [Mass/Vol] 86 mg/dL Normal 74 - 106 mg/dL [facility]; [facility] Lipid 1996 panel LIPID PROFILE Normal [facility]; [place] [employer] [facility], [facility] Potassium [Moles/Vol] 4.0 mmol/L Normal 3.5 - 5.1 mmol/L [facility]; [facility] Protein [Mass/Vol] 6.8 g/dL Normal 6.4 - 8.3 g/dL [facility]; [facility], [facility] Sodium [Moles/Vol] 136 mmol/L Normal 136 - 145 mmol/L [facility]; [place] [employer] [facility] Triglyceride [Mass/Vol] 69 mg/dL Normal 0 - 150 mg/d L [facility]; [facility] Urea nitrogen [Mass/Vol] 11 mg/dL Normal 6 - 20 mg/dL [facility]; [place] [employer] [facility] Urea nitrogen/Creatinine [Mass ratio] 14 {ratio} Normal 0 - 30 {ratio} [facility]; [place] [employer] [facility] No Panel Informationon 06-28 AGE 45 {years} Normal [facility]; [place] [employer] [facility] Vital Signs Date Time Vital Sign Value Performing Clinician Facility 07-07-2024 08:28-0500 Body height 165.1 cm [facility] Work Phone: [facility]; [place] [employer] [facility] 07-07-2024 08:28-0500 Body mass index (BMI) [Ratio] 37.61 kg/m2 [facility] Work Phone: [facility]; [place] [employer] [facility] 07-07-2024 08:28-0500 Body surface area Derived from formula 2.08 m2 [facility] Work Phone: [facility]; [place] [employer] 07-07-2024 08:28-0500 Body weight 102.51 kg Miri Hutchinson [employer] Work Phone: [employer] 07-07-2024 08:28-0500 Diastolic blood pressure 76 mm[Hg] Miri Hutchinson [employer] Work Phone: [employer].; [employer]. Comment on above: Patient Position: Sitting; Cuff Location : Left Arm; Cuff Size: Large 07-07-2024 08:28-0500 Heart rate 87 /min Miri Hutchinson [employer]ANCE [employer]IATE Work Phone: [employer].; [employer], [employer]. Comment on above: Pattern: Regular 07-07-2024 08:28-0500 Systolic blood pressure 119 mm[Hg] Miri Hutchinson [employer] Work Phone: [employer].; [employer]. Comment on above: Patient Position: Sitting; Cuff Location : Left Arm; Cuff Size: Large 05-17-2024 11:05-0400 Body height 165.1 cm Yuki Lieberman [facility] [address] [employer] 05-17-2024 11:05-0400 Body mass index (BMI) [Ratio] 37.44 kg/m2 Kamelsh Cruz MD Work Phone: [employer].; [employer] 05-17-2024 11:05-0400 Body surface area Derived from formula 2.08 m2 Kamlesh Cruz MD Work Phone: [employer].; [employer] 05-17-2024 11:05-0400 Body weight 102.06 kg Kamlesh Cruz MD Work Phone: [employer].; [employer] [place] [employer] 05-17-2024 11:05-0400 Heart rate 59 /min Kamlesh Cruz MD Work Phone: [employer].; [employer]. Comment on above: Pattern: Regular 02-19-2024 08:59-0400 Body height 165.1 cm Deb Glasgow LPN [facility], [facility].; [facility], [facility]. 02-19-2024 08:59-0400 Body mass index (BMI) [Ratio] 36.78 kg/m2 Deb Glasgow LPN [facility], [facility].; [facility] 02-19-2024 08:59-0400 Body surface area Derived from formula 2.06 m2 Deb Glasgow LPN [facility], [facility].; [facility], [facility]. 02-19-2024 08:59-0400 Body temperature 97.3 [degF] Deb Glasgow [facility], [facility].; [facility], [facility]. Comment on above: Method: Tympanic 02-19-2024 08:59-0400 Body weight 100.25 kg Deb Glasgow LPN [facility], [facility].; [facility] 02-19-2024 08:59-0400 Diastolic blood pressure 78 mm[Hg] Deb Glasgow LPN [facility], [facility].; [place] [employer] [facility], [employer] Comment on above: Patient Position: Sitting; Cuff Location : Left Arm; Cuff Size: Standard 02-19-2024 08:59-0400 Heart rate 62 /min Deb Glasgow LPN [facility], [facility].; [place] [employer] [facility], [employer] Comment on above: Pattern: Regular 02-19-2024 08:59-0400 Systolic blood pressure 130 mm[Hg] Deb Glasgow LPN [facility], [facility].; [place] [employer] [facility], [facility]. Comment on above: Patient Position: Sitting; Cuff Location : Left Arm; Cuff Size: Standard 06-24-2023 14:25-0400 Body height 165.1 cm Mireille Lopez LPN [facility], [facility].; [facility], [facility]. 06-24-2023 14:25-0400 Body mass index (BMI) [Ratio] 37.11 kg/m2 Mireille Lopez LPN [facility], [facility].; [place] [employer] [facility], [employer] 06-24-2023 14:25-0400 Body surface area Derived from formula 2.07 m2 Mireille Lopez [facility], [facility].; [facility], [facility]. 06-24-2023 14:25-0400 Body weight 101.15 kg Mireille Lopez [facility], [facility].; [facility], [facility]. 06-24-2023 14:25-0400 Diastolic blood pressure 70 mm[Hg] Mireille Krishnan Jessica [facility], [facility].; [place] [employer] [facility], [facility]. Comment on above: Patient Position: Sitting; Cuff Location : Left Arm; Cuff Size: Standard 06-24-2023 14:25-0400 Heart rate 54 /min Mireille Krishnan Jessica [facility], [facility].; [place] [employer], [employer]. Comment on above: Pattern: Regular 06-24-2023 14:25-0400 Systolic blood pressure 122 mm[Hg] Mireille Lopez [facility], [facility].; [employer], [facility]. Comment on above: Patient Position: Sitting; Cuff Location : Left Arm; Cuff Size: Standard 08-04-2022 08:50-0500 Body height 165.1 cm Deb Cee MA [facility], [facility].; [place] [employer] [facility], [facility]. 08-04-2022 08:50-0500 Body mass index (BMI) [Ratio] 38.61 kg/m2 Deb Cee MA [facility], [facility].; [place] [employer] [facility], [facility]. 08-04-2022 08:50-0500 Body surface area Derived from formula 2.11 m2 Deb Cee MA [facility], [facility].; [place] [employer] [facility], [facility]. 08-04-2022 08:50-0500 Body weight 105.24 kg Deb Cee MA [facility], [facility].; [place] [employer] [facility], [facility]. 08-04-2022 08:50-0500 Diastolic blood pressure 73 mm[Hg] Deb Cee MA [facility], [facility].; [employer], [facility]. Comment on above: Patient Position: Sitting; Cuff Location : Left Arm; Cuff Size: Standard 08-04-2022 08:50-0500 Heart rate 66 /min Deb Cee MA [facility], [facility].; [employer] Comment on above: Pattern: Regular 08-04-2022 08:50-0500 Systolic blood pressure 117 mm[Hg] Deb Cee MA [facility], [employer].; [employer] [facility]. Comment on above: Patient Position: Sitting; Cuff Location : Left Arm; Cuff Size: Standard 11-18-2021 13:55-0400 Body height 165.1 cm Mireille Krishnan Jessica [facility], [facility].; [employer] 11-18-2021 13:55-0400 Body mass index (BMI) [Ratio] 37.44 kg/m2 Mireille Krishnan Jessica [facility], [facility].; [employer] [facility] Hospital[facility]. 11-18-2021 13:55-0400 Body surface area Derived from formula 2.08 m2 Mireille Krishnan Jessica [facility], [facility].; [employer], [employer] 11-18-2021 13:55-0400 Body weight 102.06 kg Mireille Krishnan Jessica [facility] [employer] [facility], [facility].; [employer] 11-18-2021 13:55-0400 Diastolic blood pressure 82 mm[Hg] Mireille Delabach [facility] [employer] [facility], [facility].; [employer] Comment on above: Patient Position: Sitting; Cuff Location : Left Arm; Cuff Size: Standard 11-18-2021 13:55-0400 Heart rate 62 /min Mireille Delabach [facility], [facility].; [employer] Comment on above: Pattern: Regular 11-18-2021 13:55-0400 Systolic blood pressure 130 mm[Hg] Mireille Delabach [facility] [employer] [facility], [facility].; [employer] Comment on above: Patient Position: Sitting; Cuff Location : Left Arm; Cuff Size: Standard 09-23-2021 16:25-0500 Body height 165.1 cm Yuki Lieberman QUALITY ASSURANCE ASSOCIATE [facility], [facility].; [employer] 09-23-2021 16:25-0500 Body mass index (BMI) [Ratio] 36.94 kg/m2 Yuki Lieberman [facility] [employer] [facility], [facility].; [employer] 01-24-2022 16:25-0500 Body surface area Derived from formula 2.07 m2 Yuki Lieberman [facility], [facility].; [employer] [facility] Hospital[facility]. 09-23-2021 16:25-0500 Body temperature 99 [degF] Mickie Mio [facility], [facility].; [employer]. Comment on above: Method: Tympanic 09-23-2021 16:25-0500 Body weight 100.7 kg [facility]ie [facility], [facility].; [employer] 09-23-2021 16:25-0500 Inhaled oxygen concentration 20 % [facility], [facility].; [employer] Comment on above: Room air 09-23-2021 16:25-0500 Inhaled oxygen concentration 21 % [facility] Mio [facility], [facility].; [employer] Comment on above: Room air 09-23-2021 16:25-0500 SaO2% (BldA) [Mass fraction] 96 % Yuki Lieberman [facility], [facility].; [employer] 07-17-2021 14:02-0500 Body height 165.1 cm Lauro Pauline Angeles PA-C Work Phone: [place] [employer] [facility].; [employer] 07-17-2021 14:02-0500 Body mass index (BMI) [Ratio] 35.94 kg/m2 Lauro De Leoner PA-C Work Phone: [place] [employer] [facility].; [employer] 07-17-2021 14:02-0500 Body surface area Derived from formula 2.04 m2 Lauro Pauline De Leoner PA-C Work Phone: [employer]; [employer] 07-17-2021 14:02-0500 Body weight 97.98 kg Lauro De Leoner PA-C Work Phone: [employer]; [employer] 07-17-2021 14:02-0500 Diastolic blood pressure 77 mm[Hg] Lauro Carpenter Angeles PA-C Work Phone: [facility].; [employer]. Comment on above: Patient Position: Sitting; Cuff Location : Left Arm; Cuff Size: Standard 07-17-2021 14:02-0500 Heart rate 58 /min Lauro Carpenter Angeles PA-C Work Phone: [employer] Comment on above: Pattern: Regular 07-17-2021 14:02-0500 Inhaled oxygen concentration 20 % Lauro Pauline Angeles PA-C Work Phone: [place] [employer] [facility].; [employer] Comment on above: Room air 07-17-2021 14:02-0500 Inhaled oxygen concentration 21 % Lauro Pauline Angeles PA-C Work Phone: [facility].; [employer]. Comment on above: Room air 07-17-2021 14:02-0500 SaO2% (BldA) [Mass fraction] 98 % Lauro Carpenter Angeles PA-C Work Phone: [employer]; [employer] 07-17-2021 14:02-0500 Systolic blood pressure 121 mm[Hg] Lauro Carpenter Angeles PA-C Work Phone: [place] [employer] [facility].; [employer]. Comment on above: Patient Position: Sitting; Cuff Location : Left Arm; Cuff Size: Standard 11-16-2020 14:43-0400 Body height 165.1 cm Mireille Lopez LPN [facility].; [employer] 11-16-2020 14:43-0400 Body mass index (BMI) [Ratio] 35.61 kg/m2 Mireille Lopez LPHca [facility] HospitalMykon[facility].; [place] [employer] [facility] Hospital[facility]. 11-16-2020 14:43-0400 Body surface area Derived from formula 2.04 m2 Mireille Lopez [facility] [employer] [facility] HospitalMy[facility].; [employer] 11-16-2020 14:43-0400 Body temperature 98.6 [degF] Mireille Krishnan Jessica MONTEJO [facility].; [place] [employer] [facility] HospitalT[facility]. Comment on above: Method: Tympanic 11-16-2020 14:43-0400 Body weight 97.07 kg Mireille Krishnan Jessica MONTEJO [facility].; [place] [employer] [facility] Hospital[facility]. 11-16-2020 14:43-0400 Diastolic blood pressure 77 mm[Hg] Mireille Eulogio Lopez LPN [place] [employer] [facility] HospitalMy[facility].; [employer] [facility] HospitalMy[facility]. Comment on above: Patient Position: Sitting; Cuff Location : Left Arm; Cuff Size: Standard 11-16-2020 14:43-0400 Heart rate 92 /min Mireille Eulogio Jessicahakan MONTEJO [place] [employer] [facility] HospitalMykon[facility].; [employer]. Comment on above: Pattern: Regular 11-16-2020 14:43-0400 Systolic blood pressure 125 mm[Hg] Mireille Krishnan Jessica MONTEJO [place] [employer] [facility] HospitalMy[facility].; [employer]. Comment on above: Patient Position: Sitting; Cuff Location : Left Arm; Cuff Size: Standard 07-19-2020 10:01-0500 Body height 165.1 cm Lauro LIMA-C Work Phone: [employer]; [employer]. 07-19-2020 10:01-0500 Body mass index (BMI) [Ratio] 35.28 kg/m2 Lauro Angeles PA-C Work Phone: [employer]; [employer] 07-19-2020 10:01-0500 Body surface area Derived from formula 2.03 m2 Lauro De Leoner PA-C Work Phone: [employer]; [employer] 07-19-2020 10:01-0500 Body weight 96.16 kg Lauro De Leoner PA-C Work Phone: [employer]; [employer] 07-19-2020 10:01-0500 Diastolic blood pressure 72 mm[Hg] Lauro J Angeles PA-C Work Phone: [employer].; [employer]. Comment on above: Patient Position: Sitting; Cuff Location : Left Arm; Cuff Size: Standard 07-19-2020 10:01-0500 Heart rate 82 /min Lauro Carpenter Angeles PA-C Work Phone: [employer].; [employer]. Comment on above: Pattern: Regular 07-19-2020 10:01-0500 Systolic blood pressure 120 mm[Hg] Lauro Carpenter Angeles PA-C Work Phone: [employer].; [employer]. Comment on above: Patient Position: Sitting; Cuff Location : Left Arm; Cuff Size: Standard 07-08-2019 11:20-0500 Body height 165.1 cm Lauro Carpenter Angeles PA-C Work Phone: [employer].; [employer]. 07-08-2019 11:20-0500 Body mass index (BMI) [Ratio] 33.28 kg/m2 Lauro Carpenter Angeles PA-C Work Phone: [employer].; [employer]. 07-08-2019 11:20-0500 Body surface area Derived from formula 1.98 m2 Lauro Carpenter Angeles PA-C Work Phone: [employer].; [employer]. 07-08-2019 11:20-0500 Body weight 90.72 kg Lauro Carpenter Angeles PA-C Work Phone: [employer].; [employer]. 07-08-2019 11:20-0500 Diastolic blood pressure 76 mm[Hg] Lauro Pauline Angeles PA-C Work Phone: [employer].; [employer]. Comment on above: Patient Position: Sitting; Cuff Location : Left Arm; Cuff Size: Standard 07-08-2019 11:20-0500 Heart rate 60 /min Lauro Pauline Angeles PA-C Work Phone: [place] [employer].; [employer]. Comment on above: Pattern: Regular 07-08-2019 11:20-0500 Systolic blood pressure 111 mm[Hg] Lauro Angeles PA-C Work Phone: [place] [employer] [facility] Hospital[facility].; [employer]. Comment on above: Patient Position: Sitting; Cuff Location : Left Arm; Cuff Size: Standard 03-30-2019 14:34-0400 Body height 165.1 cm Navya Wejavier [facility] [employer], [employer]. 03-30-2019 14:34-0400 Body mass index (BMI) [Ratio] 33.95 kg/m2 Navya Wejavier [facility] [employer], [employer].; [employer]. 03-30-2019 14:34-0400 Body surface area Derived from formula 1.99 m2 Navya Southjavier [facility] Center[facility] Media Corp..; [employer] 03-30-2019 14:34-0400 Body temperature 98.2 [degF] Navya Diajavier [facility] Center[facility] Corp..; [employer]. Comment on above: Method: Tympanic 03-30-2019 14:34-0400 Body weight 92.53 kg Navya Diajavier MONTEJO [place] [employer].; [employer]. 03-30-2019 14:34-0400 Diastolic blood pressure 76 mm[Hg] Navya Colin SEVILLAGuadalupe County HospitalMitre Media Corp..; [employer]. Comment on above: Patient Position: Sitting; Cuff Location : Left Arm; Cuff Size: Standard 03-30-2019 14:34-0400 Heart rate 66 /min Navya Southjavier [facility] Center[facility] Media Corp..; [employer]. Comment on above: Pattern: Regular 03-30-2019 14:34-0400 Inhaled oxygen concentration 20 % Navya Shaw LPN [employer], [employer]. Comment on above: Room air 03-30-2019 14:34-0400 Inhaled oxygen concentration 21 % Navya Vanegaserd QUALITY ASSURANCE ASSOCIATE [employer] [facility], Inc.; [employer]. Comment on above: Room air 03-30-2019 14:34-0400 SaO2% (BldA) [Mass fraction] 98 % Navya Diajavier [facility] [employer] [facility], Inc.; [employer] [place] [employer] 03-30-2019 14:34-0400 Systolic blood pressure 120 mm[Hg] Navya Wejavier MONTEJO [place] [employer].; [employer] [place] [employer] Comment on above: Patient Position: Sitting; Cuff Location : Left Arm; Cuff Size: Standard 07-07-2018 10:05-0500 Body height 165.1 cm Navya Wejavier MONTEJO [place] [employer] 07-07-2018 10:05-0500 Body mass index (BMI) [Ratio] 35.79 kg/m2 Navya Wejavier [facility] [employer], [employer].; [employer] 07-07-2018 10:05-0500 Body surface area Derived from formula 2.04 m2 Navya Wejavier QUALITY ASSURANCE ASSOCIATE [place] [employer] [place] [employer], [employer]. 07-07-2018 10:05-0500 Body weight 97.55 kg Navya Wejavier [facility] [employer], [employer].; [employer] [place] [employer] 07-07-2018 10:05-0500 Diastolic blood pressure 80 mm[Hg] Navya Colin QUALITY ASSURANCE ASSOCIATE [employer]. Comment on above: Patient Position: Sitting; Cuff Location : Left Arm; Cuff Size: Standard 07-07-2018 10:05-0500 Heart rate 67 /min Navya Wejavier QUALITY ASSURANCE ASSOCIATE [employer]. Comment on above: Pattern: Regular 07-07-2018 10:05-0500 Systolic blood pressure 128 mm[Hg] Navya Wejavier MONTEJO [employer].; [employer]. Comment on above: Patient Position: Sitting; Cuff Location : Left Arm; Cuff Size: Standard 07-02-2017 09:33-0400 Body height 166.62 cm Navya Shaw LPN [place] [employer] [facility] HospitalMykon[facility] Software Inc.; [employer]. 07-02-2017 09:33-0400 Body mass index (BMI) [Ratio] 34.8 kg/m2 Navya Shaw LPN [place] [employer] [facility], Inc.; [employer] 07-02-2017 09:33-0400 Body surface area Derived from formula 2.05 m2 Navya Shaw LPN [place] [employer] [facility] HospitalMykon[facility] Software Inc.; [employer]. 07-02-2017 09:33-0400 Body weight 96.62 kg Navya Wejavier MONTEJO [employer] [facility] HospitalTelespree.; [employer] [place] [employer], [employer]. 06-24-2016 15:09-0400 Body height 165.1 cm Chelo Pal RN [place] [employer] [facility].; [employer], [employer]. 06-24-2016 15:09-0400 Body mass index (BMI) [Ratio] 34.11 kg/m2 Chelo Pal RN [place] [employer] [facility].; [employer] [place] [employer] 06-24-2016 15:090400 Body surface area Derived from formula 2 m2 Chelo Pal RN [employer]; [employer] [place] [employer], [employer]. 06-24-2016 15:090400 Body weight 92.99 kg Chelo Pal RN [employer]; [employer]. 06-24-2016 15:09-0400 Diastolic blood pressure 74 mm[Hg] Chelo Pal RN [employer]; [employer]. Comment on above: Patient Position: Sitting; Cuff Location : Left Arm; Cuff Size: Standard 06-24-2016 15:09-0400 Heart rate 82 /min Chelo Pal RN [employer]; [employer]. Comment on above: Pattern: Regular 06-24-2016 15:09-0400 Systolic blood pressure 113 mm[Hg] Chelo Pal RN [employer]. Comment on above: Patient Position: Sitting; Cuff Location : Left Arm; Cuff Size: Standard 07-12-2015 11:09-0500 Body height 165.1 cm Lynsey Courtney Mutersbaugh QUALITY ASSURANCE ASSOCIATE [place] [employer], [employer] 07-12-2015 11:09-0500 Body mass index (BMI) [Ratio] 32.62 kg/m2 Lynsey K Mutersbaugh QUALITY ASSURANCE ASSOCIATE [place] [employer] 07-12-2015 11:09-0500 Body surface area Derived from formula 1.96 m2 Lynsey K Mutersbaugh QUALITY ASSURANCE ASSOCIATE [place] [employer].; [employer], [employer]. 07-12-2015 11:09-0500 Body weight 88.91 kg Lynsey K Mutersbaugh QUALITY ASSURANCE ASSOCIATE [place] [employer].; [employer], [employer]. 07-12-2015 11:09-0500 Diastolic blood pressure 74 mm[Hg] Lynsey K Mutersbaugh QUALITY ASSURANCE ASSOCIATE [place] [employer].; [employer] [place] [employer] Comment on above: Patient Position: Sitting; Cuff Location : Left Arm; Cuff Size: Standard 07-12-2015 11:09-0500 Heart rate 85 /min Lynsey Courtney Coronaersbaugh QUALITY ASSURANCE ASSOCIATE [employer] [facility], Inc.; [employer] Comment on above: Pattern: Regular 07-12-2015 11:09-0500 Systolic blood pressure 116 mm[Hg] Lynsey K Mutersbaugh QUALITY ASSURANCE ASSOCIATE [place] [employer], [employer]. Comment on above: Patient Position: Sitting; Cuff Location : Left Arm; Cuff Size: Standard 01-11-2015 13:27-0400 Body height 166.62 cm Navya Shaw LPN [employer].; [employer] [place] [employer], [employer]. 01-11-2015 13:270400 Body mass index (BMI) [Ratio] 31.43 kg/m2 Navya Shaw LPN [employer] 01-11-2015 13:270400 Body surface area Derived from formula 1.96 m2 Navya Shaw QUALITY ASSURANCE ASSOCIATE [employer].; [employer], [employer]. 01-11-2015 13:270400 Body weight 87.26 kg Navya Colin MONTEJO [facility], [facility].; [employer] 01-11-2015 13:27-0400 Diastolic blood pressure 77 mm[Hg] Navya Colin MONTEJO [facility].; [employer], [employer]. Comment on above: Patient Position: Sitting; Cuff Location : Left Arm; Cuff Size: Standard 01-11-2015 13:27-0400 Heart rate 76 /min Navya Shaw LPN [employer]HD[employer] [facility], [employer].; [employer] [place] [employer], [employer]. Comment on above: Pattern: Regular 01-11-2015 13:27-0400 Systolic blood pressure 122 mm[Hg] Navya Colin MONTEJO [facility]My[facility].; [employer] Comment on above: Patient Position: Sitting; Cuff Location : Left Arm; Cuff Size: Standard Encounters Encounter Date Encounter Type Care Provider Facility Start: 06-27-2025 End: 06-27-2025 ambulatory Lauro Angeles PA Facility:[facility] Start: 08-04-2024 End: 08-04-2024 ambulatory Lauro Angeles PA Facility:[facility] Start: 07-07-2024 End: 07-06-2024 Historical Summary Lauro Angeles PA-C Work Phone: [employer] Start: 07-07-2024 End: 07-07-2024 Patient encounter procedure Lauro Angeles PA-C Work Phone: [employer]; [employer]. Start: 07-07-2024 End: 07-07-2024 Periodic preventive med est patient 40-64yrs Lauro Angeles PA-C Work Phone: [employer] Start: 06-30-2024 End: 07-04-2024 Orders Lauro Angeles PA-C Work Phone: [employer] Start: 05-17-2024 End: 05-17-2024 Office outpatient visit 15 minutes Lauro Angeles PA-C Work Phone: [employer]. Start: 05-17-2024 Review Lauro LIMA-Jhoan Work Phone: [employer]. Start: 02-19-2024 End: 02-19-2024 Office outpatient visit 15 minutes Lauro Angeles PA-C Work Phone: [employer]. Start: 08-25-2023 End: 08-25-2023 Historical Summary Lauro Angeles PA-C Work Phone: [employer]. Start: 06-24-2023 End: 06-24-2023 Patient encounter procedure Lauro LIMA-Jhoan Work Phone: [employer].; [employer]. Start: 06-24-2023 End: 06-24-2023 Periodic preventive med est patient 40-64yrs Lauro Angeles JANIE-C Work Phone: [employer]. Start: 06-18-2023 End: 06-18-2023 ambulatory [facility] Work Phone: Start: 06-18-2023 End: 06-18-2023 Patient encounter procedure [facility]-Laboratory, [facility] Start: 06-01-2023 End: 06-03-2023 Orders Lauro LIMA-C Work Phone: [employer]. Start: 08-04-2022 End: 08-04-2022 Office outpatient visit 25 minutes Lauro Angeles PA-C Work Phone: [employer]. Start: 07-30-2022 End: 07-30-2022 ambulatory [facility] Work Phone: Start: 07-30-2022 End: 07-30-2022 Patient encounter procedure [facility]-Outpatient Breast Imaging Start: 07-28-2022 End: 07-28-2022 ambulatory [facility] Work Phone: Start: 07-28-2022 End: 07-28-2022 Patient encounter procedure [facility]-Laboratory Start: 07-18-2022 End: 07-18-2022 Orders Lauro De Leoner PA-C Work Phone: [employer]. Start: 04-24-2022 Registered Recurring Wo christiano [facility] Start: 04-24-2022 Registered Referred Beau rich [facility] Start: 11-18-2021 End: 11-18-2021 ambulatory [facility]URO [facility] Start: 11-18-2021 End: 11-18-2021 Office outpatient visit 15 minutes Lauro Angeles PA-C Work Phone: [employer] Start: 09-23-2021 End: 09-23-2021 Office outpatient visit 15 minutes Lauro Angeles PA-C Work Phone: [employer] Start: 07-18-2021 End: 07-18-2021 ambulatory [facility] Start: 07-17-2021 End: 07-17-2021 Patient encounter procedure Lauro De Leoner PA-C Work Phone: [employer] Start: 06-15-2021 End: 06-15-2021 ambulatory [facility] Start: 06-10-2021 End: 06-10-2021 Orders Lauro Angeles PA-C Work Phone: [employer] Start: 11-16-2020 End: 11-16-2020 Office outpatient visit 15 minutes Lauro Angeles PA-C Work Phone: [employer] Start: 08-13-2020 End: 08-13-2020 Historical Summary Lauro De Leoner PA-C Work Phone: [employer]. Start: 07-19-2020 End: 07-19-2020 Patient encounter status Lauro De Leoner PA-C Work Phone: [employer]. Start: 07-19-2020 End: 07-19-2020 Periodic preventive med est patient 40-64yrs Lauro De Leoner PA-C Work Phone: [employer]. Start: 05-31-2020 End: 05-31-2020 Orders Lauro De Leoner PA-C Work Phone: [employer]. Start: 07-08-2019 End: 07-08-2019 Patient encounter status Lauro De Leoner PA-C Work Phone: [employer]. Start: 07-08-2019 End: 07-08-2019 Periodic preventive med est patient 40-64yrs Lauro De Leoner PA-C Work Phone: [employer]. Start: 07-02-2019 End: 07-04-2019 Orders Laurolissa De Leoner PA-C Work Phone: [employer]. Start: 06-16-2019 End: 06-16-2019 Orders Lauro De Leoner PA-C Work Phone: [employer]. Start: 03-30-2019 End: 03-30-2019 Office outpatient visit 15 minutes Lauro De Leoner PA-C Work Phone: [employer]. Start: 07-07-2018 End: 07-07-2018 Patient encounter status Lauro De Leoner PA-C Work Phone: [employer]. Start: 07-07-2018 End: 07-07-2018 Periodic preventive med est patient 40-64yrs Lauro De Leoner PA-C Work Phone: [employer]. Start: 05-12-2018 End: 05-12-2018 Orders Lauro Angeles PA-C Work Phone: [employer]. Start: 10-26-2017 End: 10-26-2017 Orders Lauro Angeles PA-C Work Phone: [employer]. Start: 07-02-2017 End: 07-02-2017 Patient encounter status Lauro De Leoner PA-C Work Phone: [employer].; [employer]. Start: 07-02-2017 End: 07-02-2017 Periodic preventive med est patient 40-64yrs Lauro Angeles PA-C Work Phone: [employer]. Start: 06-01-2017 End: 06-03-2017 Orders Lauro Angeles PA-C Work Phone: [employer]. Start: 06-24-2016 End: 06-24-2016 Patient encounter procedure Lauro Angeles PA-C Work Phone: [employer]. Start: 06-24-2016 End: 06-24-2016 Patient encounter status Lauro Angeles PA-C Work Phone: [employer].; [employer]. Work Phone: Start: 06-23-2016 End: 06-23-2016 Historical Summary Lauro Angeles PA-C Work Phone: [employer]. Start: 06-19-2016 End: 06-19-2016 Orders Lauro De Leoner PA-C Work Phone: [employer]. Start: 06-09-2016 End: 06-09-2016 Orders Lauro De Leoner PA-C Work Phone: [employer]. Start: 07-12-2015 End: 07-12-2015 Patient encounter procedure Lynsey Ellis QUALITY ASSURANCE ASSOCIATE [employer] Start: 06-28-2015 End: 06-28-2015 Orders Lauro De Leoner PA-C Work Phone: [employer]. Start: 01-11-2015 End: 01-12-2015 Patient encounter procedure Lauro De Leoner PA-C Work Phone: [employer]. Patient encounter procedure Mireille Lopez QUALITY ASSURANCE ASSOCIATE [employer]; [employer]. Patient encounter procedure Deb Glasgow QUALITY ASSURANCE ASSOCIATE [employer]; [employer] Patient encounter procedure Lauro Angeles PA-C Work Phone: [facility]; [facility] Patient encounter status Lauro Angeles PA-C Work Phone: [facility]; [facility] Patient encounter status Lauro Angeles PA-C Work Phone: [facility] Procedures Date Procedure Procedure Detail Performing Clinician Start: 07-07-2024 End: 07-07-2024 Body mass index documented Lauro Foley lalo PA-C Work Phone: Start: 07-07-2024 End: 07-07-2024 Depression screening Lauro De Leoner PA -C Work Phone: Start: 07-07-2024 End: 07-07-2024 Scr dep neg, no plan reqd Lauro De Leon er PA-C Work Phone: Start: 07-04-2024 End: 07-04-2024 Lab findings surveillance Miri Hutchinson Elif PN Work Phone: Comment on above: Results:. 86 Start: 07-04-2024 End: 07-04-2024 Lipid panel Miri Hutchinson QUALITY ASSURANCE ASSOCIATE Work Phone: Comment on above: tc [id number] [...] Finding. Start: 07-31-2023 End: 07-31-2023 Screening mammography Mirijaime Hutchinson GUSTABO Work Phone: Comment on above: Normal. Start: 06-24-2023 End: 06-24-2023 Depression screening Lauro Angeles PA -C Work Phone: Start: 06-24-2023 End: 08-25-2023 Oncology colorectal screening vaishali 10 dna markrs Lauro De Leoner PA-C Work Phone: Start: 06-24-2023 End: 06-24-2023 Scr dep neg, no plan reqd Lauro Carpenter Palm er PA-C Work Phone: Start: 06-18-2023 End: 06-18-2023 Lab findings surveillance Mireille be LPN Comment on above: Results:. 101 CMP Start: 06-18-2023 End: 06-18-2023 Lipid panel Mireille Lopez LP N Comment on above: TC 180, HDL 41, LDL 121, Trig 89 Start: 06-01-2023 End: 07-31-2023 Screening digital breast tomosynthesis bi Regine Pauline Raman PA-C Work Phone: Start: 07-30-2022 Screening mammography Start: 07-18-2022 End: 07-31-2022 Screening digital breast tomosynthesis bi Lauro Angeles PA-C Work Phone: Start: 11-18-2021 End: 11-20-2021 Radex shoulder complete minimum 2 views Lauro De Leoner PA-C Work Phone: Start: 07-17-2021 End: 07-17-2021 Depression screening Lauro Carpenter Angeles PA -C Work Phone: Start: 07-17-2021 End: 07-17-2021 Scr dep neg, no plan reqd Lauro Pauline Palm er PA-C Work Phone: Start: 06-10-2021 End: 07-18-2021 Diagnostic mammography computer-aided detcj bi Lauro De Leoner PA-C Work Phone: Start: 11-16-2020 End: 11-16-2020 No Known Past Surgical History Mireille Krihsnan Jessica MONTEJO Start: 08-03-2020 End: 08-03-2020 Vero Pal RN Comment on above: Normal. Start: 07-19-2020 End: 07-19-2020 Depression screening Lauro Carpenter Angeles PA -C Work Phone: Start: 07-19-2020 End: 08-14-2020 Oncology colorectal screening vaishali 10 dna markrs Lauro Carpenter Angeles PA-C Work Phone: Start: 07-19-2020 End: 07-19-2020 Scr dep neg, no plan reqd Lauro Carpenter Palm er PA-C Work Phone: Start: 03-31-2020 End: 03-31-2020 Abdominal hysterectomy Mireille Krishnan Jessica MONTEJO Start: 07-08-2019 End: 07-08-2019 Depression screening Laruo Carpenter Angeles PA -C Work Phone: Start: 07-08-2019 End: 07-08-2019 Scr dep neg, no plan reqd Lauro Carpenter Palm er PA-C Work Phone: Start: 06-16-2019 End: 08-09-2019 Screening mammography bi 2-view breast inc cad Lauro Carpenter Angeles PA-C Work Phone: Start: 07-07-2018 End: 07-07-2018 Flu imm no admin doc asad Lauro Carpenter Moisese r PA-C Work Phone: Start: 10-29-2017 End: 10-29-2017 Screening mammography Mireille M Jessica MONTEJO Comment on above: Normal. Start: 10-26-2017 End: 10-29-2017 Screening mammography bi 2-view breast inc cad Lauro Carpenter Angeles PA-C Work Phone: Start: 07-02-2017 End: 07-02-2017 Flu imm no admin doc asad rangel PA-C Work Phone: Start: 07-12-2015 End: 09-20-2016 [...] Author Start: 07-07-2024 Provider Instructions for Treatment [facility] HM Issues, 50-64 female Indication: Annual physical exam Start: 07-Jul-2024 Instruction Type: Provider Instructions for Treatment [employer] Start: 07-07-2024 Patient encounter procedure Medical; PHYSICAL - AWV [employer]. Start: 07-Jul-2024 08:20-05:00 DAVID Angeles Appointment Request [employer]. Start: 07-01-2024 Patient encounter procedure Medical; PHYSICAL - AWV [employer]. Start: 01-Jul-2024 08:20-04:00 DAVID Angeles Appointment Request [employer]. Start: 06-30-2024 Assay of thyroid stimulating hormone tsh TSH W/ REFL FREE T4 (40787,88437) (64557) Start: 30-Jun-2024 Request [employer] Start: 06-30-2024 Blood count complete auto&auto difrntl wbc CBC, PLATELETS & AUT DIFF (F) (76315) Start: 30-Jun-2024 Request [employer] Start: 06-30-2024 Comprehensive metabolic panel CMP w/ GFR* (25965) Start: 30-Jun-2024 Request [employer] Start: 06-30-2024 Lipid panel LIPID PANEL (24144) Start: 30-Jun-2024 Request [employer] Start: 06-30-2024 Screening digital breast tomosynthesis bi Mammogram 3D (tomosynthesis), bilateral ([id number]) Start: 30-Jun-2024 Intent [employer] Start: 05-17-2024 Radex foot complete minimum 3 views Foot, Right Complete x-ray (76080) Start: 17-May-2024 Intent [employer] Start: 02-19-2024 Radex foot complete minimum 3 views Foot, Left Complete x-ray (61286) Start: 19-Feb-2024 Intent [employer] Start: 06-24-2023 Oncology colorectal screening vaishali 10 dna markrs COLOGUARD COLON CANCER SCREENING USING STOOL DNA AT POINT OF CARE ([id number]) Start: 24-Jun-2023 Intent [employer] Start: 07-30-2022 MG Breast - bilateral Screening [facility] Work Phone: Start: 07-30-2022 Screening mammography SCRN MAMM (CAD)W/MAGNO BILAT [facility] Work Phone: Start: 07-17-2021 Provider Instructions for Treatment [facility] HM Issues, 40-49 female Indication: Annual physical exam Start: 17-Jul-2021 Instruction Type: Provider Instructions for Treatment [employer] Start: 05-31-2020 Screening mammography bi 2-view breast inc cad Mammogram Bilateral Screening (75439) Start: 31-May-2020 Intent [employer] Start: 07-02-2017 Screening mammography bi 2-view breast inc cad Mammogram Bilateral Screening (99147) Start: 02-Jul-2017 Intent [employer] Immunizations Immunization Date Immunization Notes Care Provider Fa cility 05-28-2023 influenza, injectabl e, quadrivalent, preservative free [facility] 06-02-2022 influenza, injectabl e, quadrivalent, preservative free [facility] 06-02-2022 influenza, seasonal, injectable [facility] Work Phone: 07-08-2019 influenza, injectabl e, quadrivalent, contains preservative Lauro Angeles [facility]-C [facility]-11-2015 tetanus toxoid, reduced diphtheria toxoid, and acellular pertussis vaccine, adsorbed [facility] Comment on above: Site: Deltoid (Left) VIS Given: * TDAP, Td (01/06/2013) NEGATED: Highlighted row has not occurred!07-08-2019 influenza, injectable, quadrivalent, contains preservative Lauro Angeles PA-C [facility] Comment on above: VIS Given: * Influen za - Inactivated (04/06/15) Payers Date Payer Category Payer Self-pay [id number] 1ca 2024 Unknown [id number] 1970 Unknown [id number] 1970 Unknown [id number] 1970 Unknown [id number] Private Health Insurance [id number] Private Health Insurance [id number] Private Health Insurance [id number] Unknown [facility] Unknown [id number] Unknown [id number] Social History Date Type Detail Facility Start: 03-27-2020 End: 03-27-2020 Tobacco smoking status NHIS Unknown if ever smoked [facility] Start: 03-27-2020 Non-smoker [facility] Start: 1970 Sex Assigned At Female W [facility] Alcohol Use Alcohol Use [employer] [employer] Tobacco Use: Tobacco Use: ; N ever smoker. [employer]; [facility] Never smoked tobacco [employer]; [employer] Work Phone: NEGATED: Highlighted row No Social History Information Available No Social History Information Available [employer]; [employer] Work Phone: Evaluation note Note Date & Type Note Facility Evaluation note No assessment information availa ble [facility] Work Phone: Summary Purpose Family History No Family History Records Found arthritis-mother, father Status:Active Comment s:grandparents Breast Cancer Status:Active Comments:andbone grandmother Coronary Artery Disease Status:Active Comments :Father. Mother. Dad with [place] at 77 Hypertension Status:Active Comments:Mother. Father. grandparents arthritis-mother, father Status:Active Comment s:grandparents Breast Cancer Status:Active Comments:andbone grandmother Coronary Artery Disease Status:Active Comments :Father. Mother. Dad with [place] at 77 Hypertension Status:Active Comments:Mother. Father. grandparents arthritis-mother, father Status:Active Comment s:grandparents Breast Cancer Status:Active Comments:andbone grandmother Coronary Artery Disease Status:Active Comments :Father. Mother. Dad with [place] at 77 Hypertension Status:Active Comments:Mother. Father. grandparents arthritis-mother, father Status:Active Comment s:grandparents Breast Cancer Status:Active Comments:andbone grandmother Coronary Artery Disease Status:Active Comments :Father. Mother. Dad with [place] at 77 Hypertension Status:Active Comments:Mother. Father. grandparents arthritis-mother, father Status:Active Comment s:grandparents Breast Cancer Status:Active Comments:andbone grandmother Coronary Artery Disease Status:Active Comments :Father. Mother. Dad with [place] at 77 Hypertension Status:Active Comments:Mother. Father. grandparents arthritis-mother, father Status:Active Comment s:grandparents Breast Cancer Status:Active Comments:andbone grandmother Coronary Artery Disease Status:Active Comments :Father. Mother. Dad with [place] at 77 Hypertension Status:Active Comments:Mother. Father. grandparents arthritis-mother, father Status:Active Comment s:grandparents Breast Cancer Status:Active Comments:andbone grandmother Coronary Artery Disease Status:Active Comments :Father. Mother. Dad with [place] at 77 Hypertension Status:Active Comments:Mother. Father. grandparents arthritis-mother, father Status:Active Comment s:grandparents Breast Cancer Status:Active Comments:andbone grandmother Coronary Artery Disease Status:Active Comments :Father. Mother. Dad with [place] at 77 Hypertension Status:Active Comments:Mother. Father. grandparents arthritis-mother, father Status:Active Comment s:grandparents Breast Cancer Status:Active Comments:andbone grandmother Coronary Artery Disease Status:Active Comments :Father. Mother. Dad with [place] at 77 Hypertension Status:Active Comments:Mother. Father. grandparents arthritis-mother, father Status:Active Comment s:grandparents Breast Cancer Status:Active Comments:andbone grandmother Coronary Artery Disease Status:Active Comments :Father. Mother. Dad with [place] at 77 Hypertension Status:Active Comments:Mother. Father. grandparents arthritis-mother, father Status:Active Comment s:grandparents Breast Cancer Status:Active Comments:andbone grandmother Coronary Artery Disease Status:Active Comments :Father. Mother. Dad with [place] at 77 Hypertension Status:Active Comments:Mother. Father. grandparents arthritis-mother, father Status:Active Comment s:grandparents Breast Cancer Status:Active Comments:andbone grandmother Coronary Artery Disease Status:Active Comments :Father. Mother. Dad with [place] at 77 Hypertension Status:Active Comments:Mother. Father. grandparents arthritis-mother, father Status:Active Comment s:grandparents Breast Cancer Status:Active Comments:andbone grandmother Coronary Artery Disease Status:Active Comments :Father. Mother. Dad with [place] at 77 Hypertension Status:Active Comments:Mother. Father. grandparents arthritis-mother, father Status:Active Comment s:grandparents Breast Cancer Status:Active Comments:andbone grandmother Coronary Artery Disease Status:Active Comments :Father. Mother. Dad with [place] at 77 Hypertension Status:Active Comments:Mother. Father. grandparents arthritis-mother, father Status:Active Comment s:grandparents Breast Cancer Status:Active Comments:andbone grandmother Coronary Artery Disease Status:Active Comments :Father. Mother. Dad with [place] at 77 Hypertension Status:Active Comments:Mother. Father. grandparents arthritis-mother, father Status:Active Comment s:grandparents Breast Cancer Status:Active Comments:andbone grandmother Coronary Artery Disease Status:Active Comments :Father. Mother. Dad with [place] at 77 Hypertension Status:Active Comments:Mother. Father. grandparents arthritis-mother, father Status:Active Comment s:grandparents Breast Cancer Status:Active Comments:andbone grandmother Coronary Artery Disease Status:Active Comments :Father. Mother. Dad with [place] at 77 Hypertension Status:Active Comments:Mother. Father. grandparents arthritis-mother, father Status:Active Comment s:grandparents Breast Cancer Status:Active Comments:andbone grandmother Coronary Artery Disease Status:Active Comments :Father. Mother. Dad with [place] at 77 Hypertension Status:Active Comments:Mother. Father. grandparents arthritis-mother, father Status:Active Comment s:grandparents Breast Cancer Status:Active Comments:andbone grandmother Coronary Artery Disease Status:Active Comments :Father. Mother. Dad with [place] at 77 Hypertension Status:Active Comments:Mother. Father. grandparents arthritis-mother, father Status:Active Comment s:grandparents Breast Cancer Status:Active Comments:andbone grandmother Coronary Artery Disease Status:Active Comments :Father. Mother. Dad with [place] at 77 Hypertension Status:Active Comments:Mother. Father. grandparents arthritis-mother, father Status:Active Comment s:grandparents Breast Cancer Status:Active Comments:andbone grandmother Coronary Artery Disease Status:Active Comments :Father. Mother. Dad with [place] at 77 Hypertension Status:Active Comments:Mother. Father. grandparents arthritis-mother, father Status:Active Comment s:grandparents Breast Cancer Status:Active Comments:andbone grandmother Coronary Artery Disease Status:Active Comments :Father. Mother. Dad with [place] at 77 Hypertension Status:Active Comments:Mother. Father. grandparents arthritis-mother, father Status:Active Comment s:grandparents Breast Cancer Status:Active Comments:andbonpatsy grandmother Coronary Artery Disease Status:Active Comments :Father. Mother. Dad with [place] at 77 Hypertension Status:Active Comments:Mother. Father. grandparents arthritis-mother, father Status:Active Comment s:grandparents Breast Cancer Status:Active Comments:andbone grandmother Coronary Artery Disease Status:Active Comments :Father. Mother. Dad with [place] at 77 Hypertension Status:Active Comments:Mother. Father. grandparents arthritis-mother, father Status:Active Comment s:grandparents Breast Cancer Status:Active Comments:andbone grandmother Coronary Artery Disease Status:Active Comments :Father. Mother. Dad with [place] at 77 Hypertension Status:Active Comments:Mother. Father. grandparents Advance Directives No Advanced Directives Records Found Advance Directive Response Recorded Date/ Time Living Will No April 02, 2020 1:29pm Power of Neuropsychology Division Chief No April 02 1:29pm Advance Directive Response Recorded Date/ Time Living Will No April 02, 2020 2:29pm Power of Neuropsychology Division Chief No April 02 2:29pm Chief Complaint and Reason for Visit Chief Complaint SCREENING Additional Source Comments INFORMATION SOURCE (unrecogn ized section and content) DATE CREATED AUTHOR 11/19/2020 [facility] DATE CREATED AUTHOR AUTHOR'S ORGANIZ ATION 11/19/2021 [facility] DATE CREATED AUTHOR AUTHOR'S ORGANIZ ATION 07/08/2025 [place] Goals (unrecognized section and content) Goals may [...] BE BASED ON THE PRIMARY CLINICAL RECORDS. [facility]. provides no warranty or guarantee of the accuracy or completeness of information in this document.
== END | disposition home or self-care (01) ==
LOC: PSN 06:50
PROVIDERS: PCP Physician Assistant; Referring Provider Physician Assistant; Visit Provider Physician Assistant
DX: R06.2 Wheezing (principal)
CPT/HCPCS: 94060; 94726; 94729